=== PATIENT | female | born 1970 | race Caucasian/White ===

== ENCOUNTER 2018-10-16 09:28 | Day surgery (SDC) | payer OTHER, SELFPAY ==
[2018-10-09 08:18] VITALS: BMI 41.3
[2018-10-16] VITALS (15 sets, daily range): BP systolic 133–174; BP diastolic 56–90; PULSE 77–116; RESP 15–98; TEMP 36.2–37.3; O2SAT 94–98; BMI 41.3
--- NOTE | 2018-10-16 | PATH_ITS ---
[facility] Accession Number: [id number] . 01 Material submitted: . uterus - UTERUS, BILATERAL FALLOPIAN TUBES AND OVARIES . 02 Diagnosis: Uterus Without Cervix With Bilateral Fallopian Tubes and Ovaries: Small leiomyoma, myometrium. Atrophic endometrium. Ovaries and fallopian tubes unremarkable. [facility]/10/18/2018 . 02 Electronically signed: . Bakari Flores MD, Pathologist NPI- [id number] . 01 Gross description: . Received in formalin, labeled uterus, bilateral fallopian tubes, ovaries, is an upper uterine body (32 grams, 3.5 cm AP, 4.0 cm SI, 4.3 cm ML) and two detached ovaries (ovary #1-3.0 x 1.5 x 0.9 cm; ovary #2-3.2 x 1.3 x 0.9 cm) with attached fimbriated fallopian tubes (tube #1: length-4.5 cm, diameter-0.3 cm; tube #2: length-5.2 cm, diameter-0.2 cm). The cervix is absent. The specimen cannot be oriented as to anterior and posterior. The endometrial cavity is opened, torn and distorted. The endometrium and myometrium cannot be grossly measured. The parenchyma is gupta-white and unremarkable. The serosa is gupta smooth and shiny. The ovaries have pale yellow smooth shiny flat serosa and gupta-white solid firm parenchyma with corpus albicans identified. The fallopian tubes have gupta smooth shiny serosa and gupta unremarkable lumens. Section code: (A1-A4) uterine parenchyma; (A5) ovary #1, senior account representative serial sections; (A6) ovary #2, senior account representative serial sections; (A7) fallopian tube #1, senior account representative serial sections; (A8) fimbria #1, bivalved, entirely submitted; (A9) fallopian tube #2, senior account representative serial sections; (A10) fimbria #2, bivalved, entirely submitted. ([id number]) /MRV . 02 Pathologist provided ICD-10: D25.9 . 02 CPT . [id number] [facility]formed at: [facility] [address] [id number] MD Masood Watson MD Phone: [phone] Performed at: 02 [address] [id number] [place], [place] [id number] MD Nereyda He MD Phone: [phone]
[2018-10-16] MEDS: LACTATED RINGERS 1,000 ML 42 ML IV ×2 (10:15→13:10)
[2018-10-16] MEDS: SCOPOLAMINE 1 PATCH TOP (10:20)
[2018-10-16] MEDS: APREPITANT 40 MG CAPSULE PO (10:20)
--- NOTE | 2018-10-16 10:29 | PM.PREOP ---
Pre-operative Note Interval Note History & Physical reviewed/Exam performed by Physician: Yes Changes to H&P: No H&P completed within 30 days and has changed as indicated here:: see out pt note 10/13/18
[2018-10-16] MEDS: CEFAZOLIN VIAL 3 GM in SODIUM CHLORIDE 0.9% 100 ML 200 ML IV (10:46)
--- NOTE | 2018-10-16 11:21 | SUR.OPER ---
Lithotomy on padded OR bed. Wellman Pad Positioner under torso. Head on pillow, arms padded and tucked at sides. Legs secured in padded yellow fins stirrups.
[2018-10-16] MEDS: BUPIVACAINE 0.5% W/ EPI (PF) VIAL 30 ML INJ (11:36)
[2018-10-16] MEDS: ROPIVACAINE 0.2% PF 2 MG/ML 10ML AMP 10 ML INJ (12:20)
[2018-10-16] MEDS: ACETAMINOPHEN IV 1,000 MG/100 ML VIAL 400 MG IV (12:44)
--- NOTE | 2018-10-16 13:26 | PM.OP.1 ---
Operative Date/Time/Diagnoses Date of procedure: 10/16/18 Time of procedure: 13:26 Pre-op diagnosis: Perineal endometriosis, pelvic pain, urinary incontinence Post-op diagnosis: same Procedure & Clinicians Procedure: Laparoscopic supracervical hysterectomy with bilateral salpingo-oophorectomies, TVT exact retropubic suburethral sling Same procedure as scheduled: Yes Indications: Patient with known peritoneal endometriosis with pelvic pain requesting hysterectomy with removal of her ovaries, urinary incontinence Surgeon: Sabine Martinez Top Distribution Executive: Yovana Garcia Click Yes if Unassisted: No Anesthesia Type: General Operative Notes Findings: Adhesions of the left tube and ovary to the descending colon. No obvious endometriosis. Normal tubes ovaries and uterus. Urinary incontinence without significant hypermobility of the the urethra or cystocele Closure Type: primary Specimen(s): other (Uterus above the level of the bladder, tubes and ovaries) Prosthetic devices, grafts, tissues, transplants, or devices: TVT exact suburethral sling Applied: catheter (Chapman) and device(s) (TVT exact retropubic suburethral sling) Estimated Blood Loss (mL): 50 Blood products transfused: none Procedure in detail: Patient is brought to the operating room where she underwent general anesthesia and placed in [facility]. She was prepped and draped in the usual sterile fashion. A check list was reviewed with the staff in the room prior to beginning of the case. Patient had pulsatile stockings in place and functional. 3 g of Ancef were in prior to beginning of the case.. A Chapman catheter was placed. A single-tooth tenaculum was placed on the anterior lip of the cervix and the cervix dilated to a #6 Hegar dilator. The uterine manipulator was placed through the cervix into the uterus with the balloon inflated with 3 mL of air. The area of the umbilical incision and the 5 mm right and left lower quadrant incisions were injected with Marcaine. An incision was made with scalpel. The varies needle was placed into the abdomen and confirmed in the appropriate place with withdrawal on a syringe and then free flow of fluid down through the needle. The abdomen was insufflated with CO2. The needle was removed and a 5 mm trocar placed without difficulty. There did not appear to be any damage is placement of the trocar. The right and left lower quadrant incisions were made with the scalpel and the trochars placed without damage to internal structures. The PK forceps were used to cauterize the infundibulopelvic ligaments. Sequential bites were taken along the mesosalpinx followed by the round ligaments on both sides. Sequential bites were taken down the broad ligaments. The uterine arteries were cauterized. An incision was made above the level bladder pushing the bladder away from the cervix. The LANCE loop was placed around the uterus and the uterus was amputated above the level of the bladder. Bleeding was controlled with the PK forceps. The PK forceps were used to cauterize in the endocervical canal. A supracervical incision was made and an 11 mm port placed. A 15 mm Endo Catch bag was placed in the abdomen. The uterus, tubes and ovaries were placed in the bag and brought up through the suprapubic port site. The Cong O was placed. The uterus was hand morselized. The abdomen was reinsufflated and adequate hemostasis was noted. The trochars were removed and the CO2 allowed escape from the abdomen. The fascia layer of the suprapubic site was repaired with 0 Polysorb suture. Skin was closed with 4-0 Monocryl suture at the suprapubic site and the other 3 sites. Next the procedure was switched to vaginal. 15 mL of half percent Marcaine with epinephrine were diluted with 70 mL of saline 10 cc was injected around the mid urethra. An incision was made over the mid urethra with a scalpel. The incision was extended laterally. A Chapman catheter was placed with a catheter guide in place. The suprapubic exit sites were marked with a marking pen. The needles attached to the sling were placed from the bottom up and left in place. The catheter was removed and 300 mL of saline were placed in the bladder and cystoscopy was performed. The 70 degree scope was used to look in the bladder. It was seen that the right needle was through the bladder. The needle was removed and replaced. A 70?? scope followed by a 0?? scope were used to look at the bladder and the urethra and the needles were not in the bladder or urethra. The graft was brought up loosely under the mid urethra. With sharp pressure against the bladder there was some leakage of urine. The plastic sheath was removed. The graft was cut under the skin of the suprapubic sites. Skin was closed with Steri-Strips. The vaginal incision was closed with 2-0 vicryl suture. Patient went to recovery room in good condition. Counts of instruments and sponges were correct. Complications: other (Right TVT needle was placed through the bladder and needed to be replaced.) Condition: stable Disposition: observation Plan for aftercare: Patient will be observed overnight. She will need to wear a Chapman catheter for 1 week to allow the needle puncture to the bladder to heal.
--- NOTE | 2018-10-16 14:30 | PC.NURSE ---
Pt to room 1415, alert, oriented, rates pain to abdomen 4/10 states I feel like I got punched. Offered IV toradol, patient declined at this time. Denies nausea. Lap sites to abdomen intact, clark pad with no drainage at this time. Patient oriented to room and call light.
[2018-10-16] MEDS: LACTATED RINGERS 1,000 ML 100 ML IV (14:38)
[2018-10-16] MEDS: KETOROLAC 30 MG/ML VIAL IV (15:10)
[2018-10-16] MEDS: OXYCODONE IR 5 MG TABLET 10 MG PO ×2 (15:45→19:40)
[2018-10-16] MEDS: DULOXETINE 30 MG CAPSULE 60 MG PO (21:01)
[2018-10-17] MEDS: OXYCODONE IR 5 MG TABLET 10 MG PO ×3 (00:03→12:33)
--- NOTE | 2018-10-17 00:18 | PC.NURSE ---
Addendum entered by Makenna Dent R.N. 10/17/18 06:17: States the Toradol took off the edge and severity is now 5/10. Peripad changed with minimal red/brown drainage noted. Addendum entered by Makenna Dent R.N. 10/17/18 05:20: States pain is still 7/10 and now feels burning sensation across abdomen. No redness or increased drainage noted. Has started passing flatus. Provided ice pack and medicated with Toradol. Addendum entered by Makenna Dent R.N. 10/17/18 04:00: Patient awakened as per her request to receive pain meds when available in order to maintain pain control. States abdominal pain is 7/10 still but has been able to sleep. Medicated with Oxycodone. Original Note: Patient is alert and oriented. Breath sounds CTA with RA sat of 97%; on continuous oximetry. HRR. Denies nausea. BT present but denies flatus although is belching. Lap dressings to abdomen/umbilicus are CDI. Lap dressings bilateral suprapubic area intact with left dressing saturated with sanguinous drainage; no leakage. Spots of dark red/brown blood on clark pad. Is able to turn but reluctant to do so. Discussed importance of moving to prevent post op complications. Non pitting bilateral ankle edema. Indwelling flores catheter patent; urine clear yellow. Wearing bilateral SCD's. Fall risk score is moderate; patient reports weak/shaky when gotten up on previous shift. Verbalizes understanding not to get out of bed without assistance. Using home CPAP for sleep. Complains of dull pain in upper lap incisions and sharp pain in suprapubic incision with 7/10 severity; medicated with Oxycodone.
[2018-10-17 04:00] VITALS: BP 145/71; PULSE 88; RESP 20; TEMP 37.1; O2SAT 97
[2018-10-17] MEDS: KETOROLAC 30 MG/ML VIAL IV (04:59)
[2018-10-17] MEDS: SODIUM CHLORIDE 0.9% FLUSH 10 ML IV ×2 (05:00→08:51)
[2018-10-17 07:10] LABS: Add Manual Diff / Slide Review NO; Basophils Absolute Auto 0 /uL (0-100); Basophils Percent Auto 0.3 % (0-2); Eosinophils Absolute Auto 0 /uL (0-450); Hematocrit 37.8 % (36-46); Hemoglobin 12.7 g/dL (12.0-16.0); Lymphocytes Absolute Auto 1300 /uL (1100-4500); Lymphocytes Percent Auto 9.3 % (25-40); Mean Corpuscular HGB Conc 33.6 % (30-36); Mean Corpuscular Hemoglobin 29.2 PG (26-34); Monocytes Absolute Auto 900 /uL (0-900); Monocytes Percent Auto 6.6 % (3-14); Neutrophils Absolute Auto 12000 /uL (1500-7000); Neutrophils Percent Auto 83.8 % (50-75); Platelet Count 295 X10^3/uL (150-400); Red Blood Cell Count 4.34 X10^6/uL (4.0-5.2); Red Cell Distribution Width 13.5 % (11.6-14.8); White Blood Cell Count 14.3 X10^3/uL (4.5-11.0)
[2018-10-17 08:01] VITALS: BP 119/53; PULSE 74; RESP 16; TEMP 36.9; O2SAT 98
--- NOTE | 2018-10-17 08:46 | PM.DS.1 ---
History of Present Illness Date Patient Seen: 10/17/18 Time Patient Seen: 08:46 Chief complaint: *OPB* [id number] Narrative: Patient is postoperative day 1 Laparoscopic supracervical hysterectomy, bilateral salpingo-oophorectomy, TVT suburethral sling. Patient is having some difficulty with pain so has not been ambulatory yet. She is denying problems with nausea. Discharge Providers Discharge Date: 10/17/18 Primary care physician: Bipin Hi MD Consults: 10/16/18 10:15 Consult to Respiratory Therapy Evaluate & Treat Comment: Physician Instructions: Evaluate and treat 10/16/18 13:29 Consult to Respiratory Therapy Evaluate & Treat Comment: Physician Instructions: Evaluate and treat Discharge provider: Sabine Martinez MD Summary Discharge Diagnosis: Perineal endometriosis and urinary incontinence Hospital Course: Patient underwent a laparoscopic supracervical hysterectomy with bilateral salpingo oophorectomy with TVT retropubic mid suburethral sling. One of the introducer needles went through the bladder and was replaced so she will need to have a Chapman for 1 week while this heals. Patient is having some difficulty with pain control initially but her vital signs are stable and she is afebrile. She will be discharged home to be followed up and have her Chapman catheter removed on 10/25/2018. She will be started on estradiol patch for hormone replacement. Status at Discharge Cognitive/behavioral status at discharge: oriented Functional status at discharge: independent ambulation Overall status at discharge: patient is progressing back to baseline Time Spent with Patient Less than 30 minutes Exam Vital Signs (past 8 hours): - 10/17/18 04:00 10/17/18 08:01 Temperature 98.7 F 98.4 F Pulse Rate 88 74 Respiratory Rate 20 16 Blood Pressure 145/71 H 119/53 L Pulse Oximetry 97 98 Oxygen Delivery Method Room Air Oxygen Flow Rate 0 Narrative Exam Narrative: Patient's abdomen is soft with appropriate tenderness. Her dressings are dry. She has minimal vaginal bleeding. Clear urine. Extremities without edema and nontender. Objective Labs Result Diagrams: 10/17/18 06:55 Labs: Laboratory Results - last 24 hr 10/17/18 06:55 WBC 14.3 H RBC 4.34 Hgb 12.7 Hct 37.8 MCV 87.0 MCH 29.2 MCHC 33.6 RDW 13.5 Plt Count 295 Neut % (Auto) 83.8 H Lymph % (Auto) 9.3 L [place] % (Auto) 6.6 Eos % (Auto) 0.0 L Baso % (Auto) 0.3 Neut # (Auto) 72545 H Lymph # (Auto) 1300 [place] # (Auto) 900 Eos # (Auto) 0 Baso # (Auto) 0 Discharge Plan Discharge Plan Patient Disposition: Home Discharge Med Rec/Prescriptions Prescriptions: New nitrofurantoin monohyd/m-cryst 100 mg capsule 100 mg PO BID Qty: 14 RF: 0 Continued ibuprofen 200 MG tablet 200 mg PO PRN Qty: 0 RF: 0 lisinopril 10 MG tablet 5 mg PO QDAY Qty: 0 RF: 0 duloxetine [Cymbalta] 60 mg capsule,delayed release(DR/EC) 60 mg PO DAILY RF: 0 ondansetron 4 mg tablet,disintegrating 4 mg PO Q6H PRN (Reason: nausea and vomiting) Qty: 15 RF: 1 oxycodone 5 mg tablet 10 mg PO Q4-6H PRN (Reason: pain) Qty: 30 RF: 0 Discontinued [ CONTROL PILLS ] Qty: 0 RF: 0 Follow up/Referrals: Sabine Martinez MD [Physician] - 10/25/18 (Follow up appointment as previously scheduled) Bipin Hi MD [Primary Care Provider] - Discharge Orders: Discharge (Order); Ordered 10/17/18 Ordered By: Sabine Martinez Provider Discharge Instructions Diet: Regular Activity: Do not lift over [address] anything in vagina for 6 weeks Catheter: 2-way Chapman Catheter comment: Leg bag Skin/Wound/Dressing Care Report to your healthcare provider any signs of infection, such as:: chills, fever, increased pain and unusual redness Dressing: May remove Band-Aids later today, leave Steri-Strips in place can get wet just pat dry Visit Report/Discharge Packet Instructions: Urinary Incontinence Surgery -- Sling Procedures, DI for Hysterectomy, How to Care for Your Chapman Catheter -- Female, DI for Postoperative Pain Discharge Data Primary Care Provider: Bipin Hi Attending Provider: Sabine Martinez Discharges patient from system. Discharge Date/Time: 10/17/18 15:45 Quality VTE Deep Vein Thrombosis/Pulmonary Embolism Present on Admission: No
[2018-10-17] MEDS: LISINOPRIL 10 MG TABLET 5 MG PO (08:48)
--- NOTE | 2018-10-17 08:51 | P.DS_ITS ---
History of Present Illness Date Patient Seen: 10/17/18 Time Patient Seen: 08:46 Chief complaint: *OPB* [id number] Narrative: Patient is postoperative day 1 Laparoscopic supracervical hystere ctomy, bilateral salpingo-oophorectomy, TVT suburethral sling. Patient is having some difficulty with pain so has not been ambulatory yet. She is denying problems with nausea. Discharge Providers Discharge Date: 10/17/18 Primary care physician: Bipin Hi MD Consults: 10/16/18 10:15 Consult to Respiratory Therapy Evaluate & Treat Comment: Physician Instructions: Evaluate and treat 10/16/18 13:29 Consult to Respiratory Therapy Evaluate & Treat Comment: Physician Instructions: Evaluate and treat Discharge provider: Sabine Martinez MD Summary Discharge Diagnosis: Perineal endometriosis and urinary incontinence Hospital Course: Patient underwent a laparoscopic supracervical hysterectomy with bilateral salpingo oophorectomy with TVT retropubic mid suburethral sling. One of the introducer needles went through the bladder and was replaced so she will need to have a Chapman for 1 week while this heals. Patient is having some difficulty with pain control initially but her vital signs are stable and she is afebrile. She will be discharged home to be followed up and have her Chapman catheter removed on 10/25/2018. She will be started on estradiol patch for hormone replacement. Status at Discharge Cognitive/behavioral status at discharge: oriented Functional status at discharge: independent ambulation Overall status at discharge: patient is progressing back to baseline Time Spent with Patient Less than 30 minutes Exam Vital Signs (past 8 hours): - 10/17/18 04:00 10/17/18 08:01 Temperature 98.7 F 98.4 F Pulse Rate 88 74 Respiratory Rate 20 16 Blood Pressure 145/71 H 119/53 L Pulse Oximetry 97 98 Oxygen Delivery Method Room Air Oxygen Flow Rate 0 Narrative Exam Narrative: Patient's abdomen is soft with appropriate tenderness. Her dressings are dry. She has minimal vaginal bleeding. Clear urine. Extremities without edema and nontender. Objective Labs Result Diagrams: 10/17/18 06:55 Labs: Laboratory Results - last 24 hr 10/17/18 06:55 WBC 14.3 H RBC 4.34 Hgb 12.7 Hct 37.8 MCV 87.0 MCH 29.2 MCHC 33.6 RDW 13.5 Plt Count 295 Neut % (Auto) 83.8 H Lymph % (Auto) 9.3 L [place] % (Auto) 6.6 Eos % (Auto) 0.0 L Baso % (Auto) 0.3 Neut # (Auto) 17516 H Lymph # (Auto) 1300 [place] # (Auto) 900 Eos # (Auto) 0 Baso # (Auto) 0 Discharge Plan Discharge Plan Patient Disposition: Home Discharge Med Rec/Prescriptions Prescriptions: New nitrofurantoin monohyd/m-cryst 100 mg capsule 100 mg PO BID Qty: 14 RF: 0 Continued ibuprofen 200 MG tablet 200 mg PO PRN Qty: 0 RF: 0 lisinopril 10 MG tablet 5 mg PO QDAY Qty: 0 RF: 0 duloxetine [Cymbalta] 60 mg capsule,delayed release(DR/EC) 60 mg PO DAILY RF: 0 ondansetron 4 mg tablet,disintegrating 4 mg PO Q6H PRN (Reason: nausea and vomiting) Qty: 15 RF: 1 oxycodone 5 mg tablet 10 mg PO Q4-6H PRN (Reason: pain) Qty: 30 RF: 0 Discontinued [ CONTROL PILLS ] Qty: 0 RF: 0 Follow up/Referrals: Sabine Martinez MD [Physician] - 10/25/18 (Follow up appointment as previously scheduled) Bipin Hi MD [Primary Care Provider] - Discharge Orders: Discharge (Order); Ordered 10/17/18 Ordered By: Sabine Martinez Provider Discharge Instructions Diet: Regular Activity: Do not lift over [address] anything in vagina for 6 weeks Catheter: 2-way Chapman Catheter comment: Leg bag Skin/Wound/Dressing Care Report to your healthcare provider any signs of infection, such as:: chills, f ever, increased pain and unusual redness Dressing: May remove Band-Aids later today, leave Steri-Strips in place can get wet just pat dry Visit Report/Discharge Packet Instructions: Urinary Incontinence Surgery -- Sling Procedures, DI for Hyste rectomy, How to Care for Your Chapman Catheter -- Female, DI for Postoperative Pain Discharge Data Primary Care Provider: Bipin Hi Attending Provider: Sabine Martinez Discharges patient from system. Discharge Date/Time: 10/17/18 15:45 Quality VTE Deep Vein Thrombosis/Pulmonary Embolism Present on Admission: No
[2018-10-17] MEDS: ESTRADIOL 0.1 MG TOP (09:48)
[2018-10-17 10:06] VITALS: O2SAT 98
--- NOTE | 2018-10-17 10:10 | PC.NURSE ---
Addendum entered by Skyla Ray R.N. 10/17/18 15:43: Urinary catheter overnight bag and leg bag teaching done with pt's and pt's sister Shankar. Shankar able to verbally discuss steps to change control coordinator bags. No further voiced concerns. Pt left unit at 1345 via wheelchair with her family and all belongings. Addendum entered by Skyla Ray R.N. 10/17/18 13:36: Discharge packet reviewed with pt. Pt already has her follow up appt with Dr. Martinez for next Wednesday 10/25. States has all belongings. No voiced concerns regarding discharge paperwork. Waiting for family to arrive for discharge home. PIV removed from right hand. Original Note: Day Shift- Pt c/o more lower abd pain compared to mid abd. PRN Oxycodone given. Abd lap sites X6 covered with CDI bandaids. Chapman insitu draining QS clear yellow urine. Pt to go home with leg bag teaching. pt already has prescription for prn Oxycodone and Zofran at home. Antibiotics sent electronically to [facility] by Dr. Martinez per pt request. Leg bag teaching done at 1000 with pt. Explained switching from overnight bag to leg bag and proper technique keeping tip of tubing clean and wiping with alcohol swab creating friction for cleaning prior to inserting into catheter tubing. Keeping bag below bladder and avoiding kinks. Cleaning clark-catheter insertion site 2 times per day wiping away from the body. Discharge paperwork on urinary catheter care given at this time for pt to pre-read prior to discharge. Pt would like another demo done when family arrives. Plan for discharge around [id number].
[2018-10-17 12:00] VITALS: BP 149/76; PULSE 78; RESP 17; TEMP 36.6; O2SAT 99
--- NOTE | 2018-10-17 15:11 | CM.DANOTE ---
Addendum entered by Steff Enamorado LPN 10/17/18 15:25: Went to check in now on pt. She is getting dressed for home. OMA Crum has taught pt's sister the flores catheter care and she is leaving momentarily for home. Original Note: Discharge Planning/Care Management DCP: assessment: case received and discussed in Team Rounds. Pt is a 48 year old female who admitted yesterday for a planned gynecological procedure under care of DR. Lien Martinez. Admission status: SDC/confirmed by UR OMA Correia. A DC summary is now noted and with the information re needle to bladder and need for flores catheter for a short time at home. RN has provided flores catheter teaching to pt and family will be also taught when they arrive to pick pt up. She will follow up with Dr. Martinez in clinic on 10/25 and flores will be kept in until then. CM Discharge Assessment Start: 10/17/18 15:09 Freq: Status: Active Protocol: Document 10/17/18 15:10 ITV (Rec: 10/17/18 15:11 ITV [id number]) Discharge Planning Assessment Advance Directives? No History Provided By Patient Medical Record Prior Living Arrangements House Household Members spouse Is patient alert and oriented? 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
== END 2018-10-17 15:45 | disposition home or self-care (01) ==
LOC: OR 09:30 → AC 09:33
PROVIDERS: Family Provider Family Medicine; PCP Family Medicine; Visit Provider Specialist
PROC: 0UT94ZL Resection of Uterus, Supracervical, Percutaneous Endoscopic Approach (ICD-10-PCS; CPT 57288; principal; 2018-10-16 10:45)
PROC: 0TSD0ZZ Reposition Urethra, Open Approach (ICD-10-PCS; CPT 57288; 2018-10-16 10:45)
DX: D25.9 Leiomyoma of uterus, unspecified (principal); N80.3 Endometriosis of pelvic peritoneum; N39.3 Stress incontinence (female) (male); N73.6 Female pelvic peritoneal adhesions (postinfective); R10.2 Pelvic and perineal pain; G47.33 Obstructive sleep apnea (adult) (pediatric); K21.9 Gastro-esophageal reflux disease without esophagitis; I10 Essential (primary) hypertension; E66.9 Obesity, unspecified; Z68.41 Body mass index [BMI] 40.0-44.9, adult
CPT/HCPCS: 57288; 58542; 85025; 94762; C1771; J0131; J0330; J0690; J1100; J1170; J1885; J2250; J2405; J2704; J2795; J3010; J8501

== ENCOUNTER → 2018-10-23 13:24 | Outpatient (CLI) | payer OTHER, SELFPAY ==
[2018-10-16 14:09] VITALS: BMI 41.3
[2018-10-23 13:49] LABS: Appearance Urine UA SL CLOUDY; Bilirubin Urine UA NEGATIVE (NEGATIVE); Color Urine UA YELLOW; Glucose Urine UA NEGATIVE (Negative); Ketones Urine UA TRACE (NEGATIVE); Leukocyte Esterase Urine UA NEGATIVE (NEGATIVE); Nitrite Urine UA NEGATIVE (Negative); Occult Blood Urine UA 3+ (Negative); Protein Urine UA NEGATIVE (Negative); Urobilinogen Urine UA 0.2 E.U./dL (0.2)
[2018-10-23 14:02] LABS: Bacteria Urine Few (2-10); RBC Urine >100/HPF (0-5/HPF); Squamous Epithelial Cell Urine 0-1 /HPF (0-5/HPF); WBC Urine 1-5/HPF (0-5/HPF)
[2018-10-23 14:17] LABS: Add Manual Diff / Slide Review NO; Basophils Absolute Auto 0 /uL (0-100); Basophils Percent Auto 0.3 % (0-2); Eosinophils Absolute Auto 300 /uL (0-450); Eosinophils Percent Auto 2.9 % (2-4); Hematocrit 40.1 % (36-46); Hemoglobin 13.4 g/dL (12.0-16.0); Lymphocytes Absolute Auto 2800 /uL (1100-4500); Lymphocytes Percent Auto 25.6 % (25-40); Mean Corpuscular HGB Conc 33.4 % (30-36); Mean Corpuscular Hemoglobin 29.4 PG (26-34); Mean Corpuscular Volume 88.1 fL (80-100); Monocytes Absolute Auto 800 /uL (0-900); Monocytes Percent Auto 7.2 % (3-14); Neutrophils Absolute Auto 6900 /uL (1500-7000); Platelet Count 296 X10^3/uL (150-400); Red Blood Cell Count 4.55 X10^6/uL (4.0-5.2); Red Cell Distribution Width 13.4 % (11.6-14.8); White Blood Cell Count 10.8 X10^3/uL (4.5-11.0)
[2018-10-23 18:20] LABS: Bilirubin Urine UA NEGATIVE (NEGATIVE); Color Urine UA YELLOW; Glucose Urine UA NEGATIVE (Negative); Ketones Urine UA NEGATIVE (NEGATIVE); Leukocyte Esterase Urine UA TRACE (NEGATIVE); Nitrite Urine UA NEGATIVE (Negative); Occult Blood Urine UA 3+ (Negative); Protein Urine UA TRACE (Negative); Specific Gravity Urine UA <=1.005 (1.000-1.035); Urobilinogen Urine UA 0.2 E.U./dL (0.2)
[2018-10-23 18:35] LABS: Amorphous Sediment Urine 1+; Appearance Urine UA Slightly Cloudy; Bacteria Urine Occasional (0-1); Culture Indicated Urine Specimen Cultured; RBC Urine 30-100/HPF (0-5/HPF); Squamous Epithelial Cell Urine 0-1 /HPF (0-5/HPF); WBC Urine 5-10/HPF (0-5/HPF)
== END ==
PROVIDERS: PCP Family Medicine; Visit Provider Obstetrics & Gynecology
DX: N39.0 Urinary tract infection, site not specified (principal); N99.89 Other postprocedural complications and disorders of genitourinary system; Z96.0 Presence of urogenital implants
CPT/HCPCS: 81001; 85025; 87086

== ENCOUNTER → 2018-10-27 15:10 | Outpatient (CLI) | payer OTHER, SELFPAY ==
[2018-10-16 14:09] VITALS: BMI 41.3
--- NOTE | 2018-10-27 15:12 | DI.US.S_ITS ---
PROCEDURE: US RENAL COMPLETE INDICATIONS: R/O R kidney stone/blockage TECHNIQUE: Real-time scanning was performed of the kidneys and bladder, with image documentation. COMPARISON: None. FINDINGS: Kidneys: Kidneys are normal in size. Right kidney measures 13.0 cm long; left kidney measures 13.2 cm long. Right renal cortical thickness is 1.4 cm; left renal cortical thickness is 1.6 cm. Renal cortical echotexture is normal. No hydronephrosis. There are bilateral 5 mm nonobstructing calculi. Bladder: Pre-void bladder volume is 76 mL. Post-void residual is 13 mL. Pre-void images demonstrate no intraluminal masses or stones. On pre-void images, bilateral ureteral jets are noted with color Doppler interrogation. (Of note, ureteral jets may not be detectable in up to 25% of cases due to insufficient differences in specific gravity between ureteral and bladder urine). Miscellaneous: No free pelvic fluid. IMPRESSION: 1. No hydronephrosis. 2. Nonobstructing bilateral nephrolithiasis. 3. Normal bilateral ureteral jets. Trace post void residual. Dictated by: Lilian Ornelas M.D. on 10/27/2018 at 16:35 Approved by: Lilian Ornelas M.D. on 10/27/2018 at 16:37
== END ==
PROVIDERS: PCP Family Medicine; Visit Provider Specialist
DX: R10.9 Unspecified abdominal pain (principal); N20.0 Calculus of kidney; Z87.442 Personal history of urinary calculi
CPT/HCPCS: 76770

== ENCOUNTER → 2020-01-29 08:49 | Outpatient (CLI) | payer OTHER, SELFPAY ==
[2018-10-16 14:09] VITALS: BMI 41.3
--- NOTE | 2020-01-29 | DI.MRI.S_ITS ---
PROCEDURE: MR CERVICAL SPINE WO CON INDICATIONS: RADICULOPATHY, CERVICAL REGION TECHNIQUE: Noncontrast sagittal T1 spin echo and T2 fast spin echo, sagittal STIR, foraminal oblique sagittal T2 fast spin echo, and axial gradient echo or T2 fast spin echo through the cervical spine. COMPARISON: None. FINDINGS: Image quality: Excellent. Alignment and Curvature: Normal configuration of the craniocervical junction. Straightening of the usual cervical lordosis. No listhesis. Vertebral body heights maintained. Bone Marrow: No suspicious focal marrow signal abnormality or bone marrow edema. Spinal Cord: Cervical cord is normal in morphology and signal intensity. No syrinx. No inferior cerebellar tonsillar ectopia. Regional Soft Tissues: Prevertebral and paraspinous soft tissues are within normal limits. C2-C3: No spinal canal or neural foraminal stenosis. C3-C4: Posterior disc-osteophyte complex flattens the ventral cord slightly. Facet and uncovertebral hypertrophy contribute to moderate left and mild right neural foraminal stenosis. C4-C5: Posterior disc-osteophyte complex flattens the ventral cord. Facet and uncovertebral hypertrophy contribute to moderate left and mild right neural foraminal stenosis. C5-C6: Posterior disc-osteophyte complex flattens the ventral thecal sac. No mass effect upon the cord. Facet and uncovertebral hypertrophy contribute to mild bilateral neural foraminal stenosis. C6-C7: Posterior disc-osteophyte complex flattens the ventral cord slightly. Facet and uncovertebral hypertrophy contribute to mild bilateral neural foraminal stenosis. C7-T1: No spinal canal or neural foraminal stenosis. IMPRESSION: Multilevel multifactorial degenerative changes, worst at C3-C4. Dictated by: Alexandro Lam M.D. on 01/29/2020 at 10:12 Approved by: Alexandro Lam M.D. on 01/29/2020 at 10:15
== END ==
PROVIDERS: PCP Physician Assistant Medical; Referring Provider Physical Medicine & Rehabilitation; Visit Provider Physical Medicine & Rehabilitation
DX: M47.22 Other spondylosis with radiculopathy, cervical region (principal)
CPT/HCPCS: 72141

== ENCOUNTER → 2020-05-17 08:29 | Outpatient (CLI) | payer OTHER, SELFPAY ==
[2018-10-16 14:09] VITALS: BMI 41.3
--- NOTE | 2020-05-17 | DI.MRI.S_ITS ---
PROCEDURE: MR THORACIC SPINE WO CON INDICATIONS: Dorsalgia, unspecified TECHNIQUE: Noncontrast sagittal T1 spine echo and T2 fast spin echo, sagittal STIR, axial T1 and T2 fast spin echo through the thoracic spine. COMPARISON: None. FINDINGS: Image quality: Excellent. Alignment and Curvature: There is normal bony alignment. Bone Marrow: Marrow is of normal overall signal. No acute vertebral body compression fractures. Spinal Cord: Visualized spinal cord is normal in size and signal. Paraspinous Soft Tissues: No paravertebral masses. Miscellaneous: T3-T4: Right foraminal disc bulge results in moderate right foraminal narrowing and flattening deformity on the exiting right T3 nerve root. T4-T5: Right foraminal disc bulge results in moderate right foraminal narrowing and flattening deformity on the right T4 nerve root. T6-T7: Shallow posterior disc extrusion, eccentric to the left, extending superior to the disc behind the T6 vertebral body, indenting on the left ventral aspect of the cord without canal stenosis. T7-T8: Large focal right paracentral disc protrusion indenting on the right ventral cord and impinging on the ventral horn of the right T7 nerve root in the right lateral recess. On all other axial scanned levels, the central canal and foramina appear widely patent . IMPRESSION: 1. At T3-T4, a right foraminal disc bulge results in moderate right foraminal narrowing 2. At T4-T5, right foraminal disc bulge results in moderate right foraminal narrowing. 3. At T6-T7, is a shallow posterior disc extrusion, eccentric to the left, extending superior to the disc behind T6, which indents on the left ventral aspect of the cord without canal stenosis. 4. At T7-T8, a large focal right paracentral disc protrusion indents on the right ventral cord and impinges on the ventral horn of the right T7 nerve root in the right lateral recess. Dictated by: Manjinder Rodriguez M.D. on 05/19/2020 at 8:12 Approved by: Manjinder Rodriguez M.D. on 05/19/2020 at 8:20
== END ==
PROVIDERS: PCP Physician Assistant Medical; Referring Provider Physical Medicine & Rehabilitation; Visit Provider Physical Medicine & Rehabilitation
DX: M54.9 Dorsalgia, unspecified (principal); M51.24 Other intervertebral disc displacement, thoracic region; M48.04 Spinal stenosis, thoracic region
CPT/HCPCS: 72146

== ENCOUNTER → 2020-07-17 14:00 | Outpatient (CLI) | payer OTHER, SELFPAY ==
[2018-10-16 14:09] VITALS: BMI 41.3
--- NOTE | 2020-07-17 | DI.US.S_ITS ---
LIMITED ULTRASOUND OF RIGHT BREAST: 07/17/2020 CLINICAL: Patient returns today to evaluate a focal asymmetry in the right breast. Comparison is made to exams dated: 07/17/2020 mammogram - [facility], 07/07/2018 mammogram, 07/01/2020 mammogram, and 06/04/2015 mammogram - [facility]. Color flow and real-time ultrasound of the right breast 12-2 o'clock region were performed. Aguilar scale images of the real-time examination were reviewed. There is a 0.4 cm x 0.3 cm x 0.3 cm oval cyst in the right breast at 12 o'clock middle depth 3 cm from the nipple. This oval cyst displays internal echoes. Color flow imaging demonstrates that there is no vascularity present. There also is a 0.6 cm x 0.4 cm x 0.3 cm oval cyst in the right breast at 2 o'clock middle depth 4 cm from the nipple. This oval cyst displays internal echoes. Color flow imaging demonstrates that there is no vascularity present. This likely correlates with mammography findings. IMPRESSION: PROBABLY BENIGN The 0.4 cm cyst in the right breast at 12 o'clock middle depth is consistent with a complicated cyst and is probably benign. The 0.6 cm cyst in the right breast at 2 o'clock middle depth is consistent with a complicated cyst and is probably benign. A follow-up mammogram and an ultrasound in 6 months is recommended to demonstrate stability. Exam findings were conveyed to the patient. This exam was interpreted at Station ID: [id number]. Electronically Signed By: Guerrero Arreola M.D. slc/:07/17/2020 15:47:33 copy to: Lilian Flannery letter sent: Followup Recommended Ultrasound BI-RADS: 3 Probably benign
--- NOTE | 2020-07-17 | DI.MG.S_ITS ---
UNILATERAL RIGHT DIGITAL DIAGNOSTIC MAMMOGRAM 3D/2D WITH ADDITIONAL VIEWS: 07/17/2020 CLINICAL: Additional evaluation requested from prior study. Comparison is made to exams dated: 07/01/2020 mammogram, 07/07/2018 mammogram, and 06/04/2015 mammogram - [facility]. There are scattered fibroglandular elements in right breast. There is a 0.6 cm oval low density asymmetry in the right breast at 1 o'clock middle depth. No other significant masses or calcifications are seen in the breast. IMPRESSION: INCOMPLETE: NEEDS ADDITIONAL IMAGING EVALUATION The 0.6 cm oval low density asymmetry in the right breast resembles a cyst and is indeterminate. A targeted ultrasound is recommended and will immediately follow. This exam was interpreted at Station ID: [id number]. NOTE: For mammograms, a report in lay terms will be sent to the patient. Approximately 15% of breast malignancies will not be visualized mammographically. In the management of a palpable breast mass, a negative mammogram must not discourage biopsy of a clinically suspicious lesion. Electronically Signed By: Guerrero Arreola M.D. slc/:07/17/2020 15:43:32 copy to: Lilian Flannery ACR BI-RADS Category 0: Incomplete [id number]
== END ==
PROVIDERS: PCP Physician Assistant Medical; Referring Provider Surgery; Visit Provider Physician Assistant Medical
DX: R92.8 Other abnormal and inconclusive findings on diagnostic imaging of breast (principal); N60.01 Solitary cyst of right breast
CPT/HCPCS: 76642; 77065; G0279

== ENCOUNTER 2020-08-12 05:16 | Emergency (ER) | payer OTHER, SELFPAY ==
[2018-10-16 14:09] VITALS: BMI 41.3
[2020-08-12] VITALS (17 sets, daily range): BP systolic 130–172; BP diastolic 64–81; PULSE 94–135; RESP 18–20; TEMP 37.2; O2SAT 93–100; BMI 44.2
--- NOTE | 2020-08-12 05:44 | ED_ITS ---
HPI - General Adult General Chief complaint: Urogenital-Female Stated complaint: kidney stone back pain Time Seen by Provider: 08/12/20 05:32 Source: patient and family Mode of arrival: Ambulatory Limitations: no limitations History of Present Illness HPI narrative: Patient is a 50-year-old female. She states she has had multiple kidney stones in the past and has had to have lithotripsy in the past. She is currently under the care of a urologist. She is on Flomax 2 times a day at baseline. She states that just over 24 hours ago started having left-sided discomfort that is worsened. Is having nausea and vomiting and generally just not feeling very well. Related Data Home Medications Medication Instructions Recorded Confirmed ibuprofen 200 mg PO PRN #0 02/24/11 11/16/18 lisinopril 5 mg PO QDAY #0 02/25/11 11/16/18 duloxetine 60 mg capsule,delayed 60 mg PO DAILY 09/25/18 11/16/18 release Previous Rx's Medication Instructions Recorded ondansetron 4 mg disintegrating 4 mg PO Q6H PRN #15 tab 10/13/18 tablet estradiol 0.1 mg/24 hr semiweekly 1 patch TRANSDERMAL 2XW #8 each 02/22/19 transdermal patch Allergies Allergy/AdvReac Type Severity Reaction Status Date / Time hydrocodone [From Vicodin] AdvReac Mild Nausea/Vomi Verified 11/16/18 07:58 ting Review of Systems Constitutional Constitutional: Reports system reviewed and no additional complaints, except as documented Cardiovascular Cardiovascular: Denies chest pain Respiratory Respiratory: Reports system reviewed and no additional complaints, except as documented Gastrointestinal Gastrointestinal: Denies abdominal pain Genitourinary Genitourinary: Reports hematuria, Reports flank pain and Reports urinary urgency Genitourinary: Reports hematuria, Reports flank pain and Reports urinary urgency Musculoskeletal Musculoskeletal: Reports system reviewed and no additional complaints, except as documented Integumentary/Breasts Skin/Breast: Denies rash Neurologic Neurologic: Reports system reviewed and no additional complaints, except as documented Hematologic/Lymphatic On Anticoagulants: No Allergic/Immunologic Allergic/Immunologic: Reports system reviewed and no additional complaints, except as documented Patient History Medical History Allergies (~2006) Dyspareunia Endometriosis (~1993) GERD (gastroesophageal reflux disease) (~2003) Irritable bowel syndrome (~1994) Kidney stones (~1998) Sleep apnea (~2017) MEGHA (stress urinary incontinence, female) (~2015) Surgical History (Updated 10/25/18 @ 08:16 by Malathi Contreras) Anesthesia History of shoulder surgery History of tonsillectomy Hx laparoscopic cholecystectomy (~2017) Hx of laparoscopy S/P laparoscopic supracervical hysterectomy (~10/16/18) [place] teeth removed Family History (Updated 10/10/18 @ 21:42 by Maryellen Rodriguez) Father Cancer Diabetes mellitus Hypertension Mother Stroke Sister Cancer Grandfather Cancer Social History household members: spouse Smoking Status: Never smoker alcohol intake: never Smoking Status: Never smoker Substance Use Type: does not use Exam Initial Vital Signs Initial Vital Signs: Vital Signs Temperature 98.9 F 08/12/20 05:16 Pulse Rate 135 H 08/12/20 05:16 Respiratory Rate 20 08/12/20 05:16 Blood Pressure 172/81 H 08/12/20 05:16 Pulse Oximetry 97 08/12/20 05:16 Const General: cooperative and comfortable Limitations: mental status not altered HENMT Head: normal to inspection and normocephalic Resp Effort & Inspection: normal respiratory effort Cardio Rate: tachycardic Skin Lesions: no lesions Neuro General: patient alert and patient awake Cognition: normal cognition Speech: speech normal Extrem General: normal to inspection Psych Appearance: grossly normal and well kempt Course Orders Ordered: ED Orders 08/12/20 05:35 Basic Metabolic Panel Stat Complete Blood Count AUTO DIFF Stat Lactate (Lactic Acid) Stat Test Urine Stat Urine Culture Stat Urine Microscopic Stat 08/12/20 05:39 EKG-12 Lead Stat 08/12/20 06:04 CT kidney ureter bladder (KUB) Stat 08/12/20 06:07 Blood Culture Stat Sodium Chloride (Normal Saline 0.9%) 1,000 mls @ 500 mls/hr IV BOLUS ONE Stop: 08/12/20 07:46 Last Admin: 08/12/20 05:55 Dose: 500 mls/hr Documented by: Discontinued Medications Hydromorphone HCl (Hydromorphone 1 Mg Inj) 1 mg IV NOW ONE Stop: 08/12/20 05:45 Last Admin: 08/12/20 05:55 Dose: 1 mg Documented by: Ceftriaxone Sodium 1,000 mg/ (Sodium Chloride) 100 mls @ 200 mls/hr IV NOW ONE Stop: 08/12/20 06:05 Last Admin: 08/12/20 06:50 Dose: 200 mls/hr Documented by: Ketorolac Tromethamine (Ketorolac 30 Mg/Ml Vial) 30 mg IV NOW ONE Stop: 08/12/20 05:45 Last Admin: 08/12/20 05:55 Dose: 30 mg Documented by: Ondansetron HCl (Ondansetron 4 Mg/2 Ml Inj) 4 mg IV NOW ONE Stop: 08/12/20 05:45 Last Admin: 08/12/20 05:55 Dose: 4 mg Documented by: Vital Signs Vital signs: Vital Signs - 8 hr 08/12/20 05:16 Temperature 98.9 F Pulse Rate 135 H Respiratory Rate 20 Blood Pressure 172/81 H Pulse Oximetry 97 Medical Decision Making Lab Data Result diagrams: 08/12/20 05:35 08/12/20 05:35 Labs: Lab Results 08/12/20 08/12/20 08/12/20 Range/Units 05:35 05:35 05:35 WBC 17.9 H (4.5-11.0) X10^3/uL RBC 4.92 (4.0-5.2) X10^6/uL Hgb 14.1 (12.0-16.0) g/dL Hct 43.1 (36-46) % MCV 87.5 (80-100) fL MCH 28.6 (26-34) PG MCHC 32.6 (30-36) % RDW 15.3 H (11.6-14.8) % Plt Count 294 (150-400) X10^3/uL Neut % (Auto) 86.7 H (50-75) % Lymph % (Auto) 5.8 L (25-40) % [place] % (Auto) 6.7 (3-14) % Eos % (Auto) 0.4 L (2-4) % Baso % (Auto) 0.4 (0-2) % Neut # (Auto) 18573 H (8913-6191) /uL Lymph # (Auto) 1000 L (8233-2078) /uL [place] # (Auto) 1200 H (0-900) /uL Eos # (Auto) 100 (0-450) /uL Baso # (Auto) 100 (0-100) /uL Sodium 132 L (137-145) mmol/L Potassium 4.4 (3.4-5.1) mmol/L Chloride 99 (98-107) mmol/L Carbon Dioxide 21 L (22-32) mmol/L BUN 10 (7-17) mg/dL Creatinine 0.87 (0.52-1.04) mg/dL Estimated GFR > 60.0 (>60) mL/min BUN/Creatinine Ratio 11.5 (6-22) Glucose 203 H (70-100) mg/dL Lactate (0.7-2.1) mmol/L Calcium 9.7 (8.4-10.2) mg/dL Urine RBC 1-5/hpf D (0-5/HPF) Urine WBC 30-100/hpf H (0-5/HPF) Ur Squamous Epith Cells 1-5 /hpf (0-5/HPF) Urine Bacteria Many (>30) H (None) Urine Mucus 1+ H (Negative) Urine Yeast 0-1/hpf (None) Ur Culture Indicated? Specimen cultured Urine Test (Negative) 08/12/20 08/12/20 Range/Units 05:35 05:35 WBC (4.5-11.0) X10^3/uL RBC (4.0-5.2) X10^6/uL Hgb (12.0-16.0) g/dL Hct (36-46) % MCV (80-100) fL MCH (26-34) PG MCHC (30-36) % RDW (11.6-14.8) % Plt Count (150-400) X10^3/uL Neut % (Auto) (50-75) % Lymph % (Auto) (25-40) % [place] % (Auto) (3-14) % Eos % (Auto) (2-4) % Baso % (Auto) (0-2) % Neut # (Auto) (6882-0618) /uL Lymph # (Auto) (8088-3017) /uL [place] # (Auto) (0-900) /uL Eos # (Auto) (0-450) /uL Baso # (Auto) (0-100) /uL Sodium (137-145) mmol/L Potassium (3.4-5.1) mmol/L Chloride (98-107) mmol/L Carbon Dioxide (22-32) mmol/L BUN (7-17) mg/dL Creatinine (0.52-1.04) mg/dL Estimated GFR (>60) mL/min BUN/Creatinine Ratio (6-22) Glucose (70-100) mg/dL Lactate 2.4 H (0.7-2.1) mmol/L Calcium (8.4-10.2) mg/dL Urine RBC (0-5/HPF) Urine WBC (0-5/HPF) Ur Squamous Epith Cells (0-5/HPF) Urine Bacteria (None) Urine Mucus (Negative) Urine Yeast (None) Ur Culture Indicated? Urine Test Negative (Negative) Urine Dip Bedside Urine Glucose 1000 mg/dl Bedside Urine Bilirubin - Negative Bedside Urine Ketone + 15 Urine Specific [place] 1.020 Bedside Urine Occult Blood +++ Bedside Urine pH 5.5 Bedside Urine Protein - Negative Bedside Urine Urobilinogen - Negative Bedside Urine Nitrite + Positive Bedside Urine Leukocytes - Negative Esterase Point of care testing: Urine Dip Bedside Urine Glucose 1000 mg/dl Bedside Urine Bilirubin - Negative Bedside Urine Ketone + 15 Urine Specific [place] 1.020 Bedside Urine Occult Blood +++ Bedside Urine pH 5.5 Bedside Urine Protein - Negative Bedside Urine Urobilinogen - Negative Bedside Urine Nitrite + Positive Bedside Urine Leukocytes - Negative Esterase Imaging Data CT scan - abdomen/pelvis: Radiologist's Impression: Multiple bilateral nonobstructing renal calculi there is left perinephric stranding without hydronephrosis ECG Data Attestation: I personally reviewed and interpreted this ECG as follows: Prior ECG tracings: not available for review Interpretation: Sinus tachycardia Ventricular rate 131 Normal axis Normal QRS QTC 440 MDM Narrative Medical decision making narrative: Patient was tachycardic and tachypneic. Also has a leukocytosis. Urinalysis has nitrite positive. Blood cultures were obtained. CT scan ordered. Antibiotics administered. Care turned over to Dr. Childress to follow-up. Discharge Plan Departure Prescriptions: No Action ibuprofen 200 MG tablet 200 mg PO PRN Qty: 0 RF: 0 lisinopril 10 MG tablet 5 mg PO QDAY Qty: 0 RF: 0 estradiol 0.1 mg/24 hr patch semiweekly 1 patch transdermal 2XW Qty: 8 RF: 11 duloxetine [Cymbalta] 60 mg capsule,delayed release(DR/EC) 60 mg PO DAILY RF: 0 ondansetron 4 mg tablet,disintegrating 4 mg PO Q6H PRN (Reason: nausea and vomiting) Qty: 15 RF: 1
[2020-08-12 05:46] LABS: Add Manual Diff / Slide Review NO; Basophils Absolute Auto 100 /uL (0-100); Basophils Percent Auto 0.4 % (0-2); Eosinophils Absolute Auto 100 /uL (0-450); Eosinophils Percent Auto 0.4 % (2-4); Hematocrit 43.1 % (36-46); Hemoglobin 14.1 g/dL (12.0-16.0); Lymphocytes Absolute Auto 1000 /uL (1100-4500); Lymphocytes Percent Auto 5.8 % (25-40); Mean Corpuscular HGB Conc 32.6 % (30-36); Mean Corpuscular Hemoglobin 28.6 PG (26-34); Mean Corpuscular Volume 87.5 fL (80-100); Monocytes Absolute Auto 1200 /uL (0-900); Monocytes Percent Auto 6.7 % (3-14); Neutrophils Absolute Auto 15500 /uL (1500-7000); Neutrophils Percent Auto 86.7 % (50-75); Platelet Count 294 X10^3/uL (150-400); Red Blood Cell Count 4.92 X10^6/uL (4.0-5.2); Red Cell Distribution Width 15.3 % (11.6-14.8); White Blood Cell Count 17.9 X10^3/uL (4.5-11.0)
[2020-08-12 05:50] LABS: BUN Creatinine Ratio 11.5 (6-22); Blood Urea Nitrogen 10 mg/dL (7-17); Calcium 9.7 mg/dL (8.4-10.2); Carbon Dioxide 21 mmol/L (22-32); Chloride 99 mmol/L (98-107); Estimated Glomerular Filt Rate > 60.0 mL/min (>60); Glucose 203 mg/dL (70-100); HEMOLYSIS < 15 (0-50); Potassium 4.4 mmol/L (3.4-5.1); Sodium 132 mmol/L (137-145)
[2020-08-12 05:51] LABS: Bacteria Urine Many (>30); Mucus Urine 1+ (Negative); RBC Urine 1-5/HPF (0-5/HPF); Squamous Epithelial Cell Urine 1-5 /HPF (0-5/HPF); WBC Urine 30-100/HPF (0-5/HPF)
[2020-08-12 05:52] LABS: Culture Indicated Urine Specimen Cultured
[2020-08-12] MEDS: SODIUM CHLORIDE 0.9% 1,000 ML 500 ML IV (05:55)
[2020-08-12] MEDS: ONDANSETRON 4 MG/2 ML INJ IV ×2 (05:55→08:36)
[2020-08-12] MEDS: HYDROMORPHONE 1 MG INJ IV (05:55)
[2020-08-12] MEDS: KETOROLAC 30 MG/ML VIAL IV (05:55)
[2020-08-12 05:59] LABS: Pregnancy Test Urine Negative (Negative)
--- NOTE | 2020-08-12 06:04 | DI.CT.S_ITS ---
PROCEDURE: CT KIDNEY URETER BLADDER (KUB) INDICATIONS: left side pain, history of stones TECHNIQUE: Axial sections were acquired from the lung bases to the pubic symphysis. Coronal and sagittal reformats were performed. For radiation dose reduction, the following was used: automated exposure control, adjustment of mA and/or kV according to patient size. COMPARISON:None. FINDINGS: Image quality: Excellent. Lung bases: There is a 3 mm nodule in the left lower lobe (series 3, image 13). Heart: No significant findings. URINARY: Right Kidney: Punctate renal calculi measuring 1-3 mm. No hydronephrosis. Right Ureter: No ureteral stone or hydroureter. Left Kidney: Multiple renal calculi measuring 1-9 mm. No hydronephrosis. Left Ureter: No ureteral stone or hydroureter. Bladder: Normal wall thickness. No stones. ABDOMEN: Liver: Hepatic steatosis. Liver is enlarged measuring 22.8 cm in length. Multiple hyperdense nodules in the liver. Lesion 1: 1.5 cm; segment II; series 2, image 17. Lesion 2: 1.1 cm; segment II; series 2, image 24. Lesions 3: 0.6 cm; segment IV series 2 image 18. Lesion 4: 0.8 cm; segment ; series 2 image 25. Gallbladder: Surgically absent. Biliary ducts: Unremarkable. Pancreas: Unremarkable. Spleen: Unremarkable. Adrenal Glands: Unremarkable. Stomach and Bowel: Stomach, small bowel loops, and colon are unremarkable. Peritoneum: No abnormal intraperitoneal fluid. No free air. Ventral Wall: No hernia. Abdominal Nodes: No enlarged retroperitoneal or mesenteric lymph nodes. Vessels: Aorta and inferior vena cava are normal in size. PELVIS: Pelvic Organs: Unremarkable. Uterus is absent. Ovaries are not visualized. No pathological free-fluid in pelvis. Pelvic Nodes: Unremarkable. Miscellaneous: No inguinal hernias are seen. Bones: Unremarkable. IMPRESSION: 1. Nonobstructive renal calculi bilaterally. No ureteral stones. No hydronephrosis. 2. Mild perinephric stranding of the left kidney. The finding is nonspecific. The patient may have recently passed a stone. An inflammatory or infectious process could also cause perinephric stranding. 3. Multiple hyperdense hepatic nodules are present. The lesions are indeterminate. If clinically indicated, further evaluation with MRI may be obtained. 4. Hepatomegaly and hepatic steatosis. No significant discrepancy with the process development chemist radiology preliminary report. Dictated by: Rabia Porter M.D. on 08/12/2020 at 7:35 Approved by: Rabia Porter M.D. on 08/12/2020 at 7:49
[2020-08-12 06:10] LABS: Lactate (Lactic Acid) 2.4 mmol/L (0.7-2.1)
[2020-08-12] MEDS: cefTRIAXone 1,000 MG in SODIUM CHLORIDE 0.9% 100 ML 200 ML IV (06:50)
[2020-08-12] MEDS: HYDROMORPHONE 0.5 MG INJ IV (07:22)
[2020-08-12] MEDS: SODIUM CHLORIDE 0.9% 1,000 ML 1000 ML IV (07:22)
[2020-08-12 08:01] LABS: Reflexed Lactate in 2 Hours Y
[2020-08-12 08:23] LABS: Lactate 2HR (Lactic Acid Rflx) 1.7 mmol/L (0.7-2.1)
--- NOTE | 2020-08-12 09:50 | PC.NURSE ---
pt ambulated independently to restroom, steady gate, tolerated ambulation well.
[2020-08-12] MEDS: OXYCODONE IR 5 MG TABLET 10 MG PO (10:25)
--- NOTE | 2020-08-12 11:24 | PC.NURSE ---
Pt tolerated PO pills and crackers well
[2020-08-13 07:48] LABS: Enterococcus species Not Detected (Not Detect)
[2020-08-13 07:52] LABS: Acinetobacter baumannii Not Detected (Not Detect); Candida albicans Not Detected (Not Detect); Candida glabrata Not Detected (Not Detect); Candida krusei Not Detected (Not Detect); Candida parapsilosis Not Detected (Not Detect); Candida tropicalis Not Detected (Not Detect); E. coli Not Detected (Not Detect); Enterobacter cloacae complex Not Detected (Not Detect); Enterobacteriaceae species Not Detected (Not Detect); Haemophilus influenzae Not Detected (Not Detect); Listeria monocytogenes Not Detected (Not Detect); Methicillin-resistant gene Not Detected (Not Detect); Neisseria meningitidis Not Detected (Not Detect); Proteus species Not Detected (Not Detect); Pseudomonas aeruginosa Not Detected (Not Detect); Serratia marcescens Not Detected (Not Detect); Staphylococcus species Detected (Not Detect); Streptococcus agalactiae (Gr B Not Detected (Not Detect); Streptococcus pneumonia Not Detected (Not Detect); Streptococcus pyogenes (Gr A) Not Detected (Not Detect); Streptococcus species Not Detected (Not Detect)
== END 2020-08-12 11:24 | disposition home or self-care (01) ==
PROVIDERS: Emergency Medicine; Emergency Provider Emergency Medicine; PCP Physician Assistant Medical
DX: N12 Tubulo-interstitial nephritis, not specified as acute or chronic (principal); E87.1 Hypo-osmolality and hyponatremia; R11.2 Nausea with vomiting, unspecified; R31.9 Hematuria, unspecified; R00.0 Tachycardia, unspecified
CPT/HCPCS: 36415; 74176; 80048; 81003; 81015; 81025; 83605; 85025; 87040; 87077; 87086; 87147; 87150; 87186; 87205; 93005; 93010; 96361; 96365; 96375; 96376; 99284; J0696; J1170; J1885; J2405

== ENCOUNTER 2020-08-13 15:29 | Observation (INO) | payer OTHER, SELFPAY ==
[2018-10-16 14:09] VITALS: BMI 41.3
[2020-08-13 15:41] VITALS: BP 133/76; PULSE 122; RESP 20; TEMP 37.1; O2SAT 99; BMI 44.6
[2020-08-13 15:43] VITALS: PULSE 109; RESP 17; O2SAT 97
--- NOTE | 2020-08-13 15:43 | DI.RAD.S_ITS ---
PROCEDURE: XR CHEST 1V INDICATIONS: suspected sepsis TECHNIQUE: One view of the chest was acquired. COMPARISON: None. FINDINGS: Surgical changes and devices: None. Lungs and pleura: Lungs are clear. No pleural effusions or pneumothorax. Mediastinum: Mediastinal contours appear normal. Heart size is normal. Bones and chest wall: No suspicious bony lesions. Overlying soft tissues appear unremarkable. IMPRESSION: No acute pulmonary process. Dictated by: Jocelin Santoyo M.D. on 08/13/2020 at 15:59 Approved by: Jocelin Santoyo M.D. on 08/13/2020 at 16:00
[2020-08-13 15:57] LABS: Amorphous Sediment Urine 1+; Bacteria Urine Few (2-10); Culture Indicated Urine Specimen Cultured; RBC Urine 1-5/HPF (0-5/HPF); Squamous Epithelial Cell Urine 1-5 /HPF (0-5/HPF); WBC Urine 5-10/HPF (0-5/HPF)
[2020-08-13 16:00] VITALS: BP 156/74; PULSE 104; RESP 13; O2SAT 95
[2020-08-13 16:04] LABS: Add Manual Diff / Slide Review NO; Basophils Absolute Auto 0 /uL (0-100); Basophils Percent Auto 0.3 % (0-2); Eosinophils Absolute Auto 0 /uL (0-450); Eosinophils Percent Auto 0.3 % (2-4); Hematocrit 39.6 % (36-46); Hemoglobin 13.3 g/dL (12.0-16.0); Lymphocytes Absolute Auto 1200 /uL (1100-4500); Lymphocytes Percent Auto 7.8 % (25-40); Mean Corpuscular HGB Conc 33.6 % (30-36); Mean Corpuscular Hemoglobin 29.1 PG (26-34); Mean Corpuscular Volume 86.3 fL (80-100); Monocytes Absolute Auto 1400 /uL (0-900); Monocytes Percent Auto 8.6 % (3-14); Neutrophils Absolute Auto 13000 /uL (1500-7000); Platelet Count 236 X10^3/uL (150-400); Red Blood Cell Count 4.58 X10^6/uL (4.0-5.2); Red Cell Distribution Width 15.2 % (11.6-14.8); White Blood Cell Count 15.7 X10^3/uL (4.5-11.0)
--- NOTE | 2020-08-13 16:11 | ED.BACK ---
HPI - Back Pain/Injury General Chief Complaint: Back Pain/Injury Stated Complaint: states kidney infection is worse Time Seen by Provider: 08/13/20 15:35 Source: patient and family Mode of arrival: Ambulatory Limitations: no limitations History of Present Illness HPI Narrative: 50-year-old female with history of hypertension and kidney stones returns to the 2nd time in 2 days in the chief complaint of fever as high as 102, shaking chills, worsening left flank pain, weakness, nausea. She was here yesterday and diagnosed with pyelonephritis. She had a CT that shows no obstructive uropathy but the presence of stones. She was sent with a 2 week prescription for Cipro and returns at the request of her primary care provider because of worsening symptoms. MD Complaint: back pain Onset (ago): day(s) Duration: constant Similar Symptoms Previously: No Location: left flank Severity: moderate Quality: aching and throbbing Radiation: none Relieving factors: immobilization Exacerbating factors: movement Associated symptoms: fever, chills and dysuria Related Data Home Medications Medication Instructions Recorded Confirmed ibuprofen 200 mg PO PRN #0 02/24/11 11/16/18 lisinopril 5 mg PO QDAY #0 02/25/11 11/16/18 duloxetine 60 mg capsule,delayed 60 mg PO DAILY 09/25/18 11/16/18 release Previous Rx's Medication Instructions Recorded ondansetron 4 mg disintegrating 4 mg PO Q6H PRN #15 tab 10/13/18 tablet estradiol 0.1 mg/24 hr semiweekly 1 patch TRANSDERMAL 2XW #8 each 02/22/19 transdermal patch ciprofloxacin HCl 500 mg PO BID #28 tab 08/12/20 ondansetron 4 mg PO QID PRN #7 tab 08/12/20 oxycodone 5 mg PO Q6H PRN #10 tab 08/12/20 Allergies Allergy/AdvReac Type Severity Reaction Status Date / Time hydrocodone [From Vicodin] AdvReac Mild Nausea/Vomi Verified 11/16/18 07:58 ting Review of Systems Constitutional Constitutional: Reports body ache(s), Reports chills, Denies fatigue, Reports fever(s), Denies frequent falls, Denies lethargy and Reports weakness Eyes Eyes: Denies change in vision, Denies eye discharge, Denies irritation and Denies loss of vision ENT Ears, Nose, Mouth, and Throat: Denies change in voice, Denies dizziness, Denies neck pain, Denies sore throat and Denies throat swelling Cardiovascular Cardiovascular: Denies chest pain, Denies irregular heart rhythm, Denies lightheadedness, Denies palpitations, Denies dyspnea, Denies dyspnea on exertion and Denies orthopnea Respiratory Respiratory: Denies cough, Denies dyspnea, Denies dyspnea on exertion and Denies wheezing Gastrointestinal Gastrointestinal: Denies abdominal pain, Denies change in bowel habits, Denies diarrhea, Reports nausea and Denies vomiting Musculoskeletal Musculoskeletal: Reports back pain, Denies neck pain and Denies numbness Integumentary/Breasts Skin/Breast: Denies pruritus, Denies erythema, Denies rash and Denies wounds Neurologic Neurologic: Denies behavioral changes, Denies confusion, Denies dizziness, Denies frequent falls, Denies loss of vision, Denies numbness and Reports weakness Psychiatric Psychiatric: Denies anxiety, Denies behavioral changes, Denies confusion, Denies depression, Denies homicidal ideation and Denies suicidal ideation Endocrine Endocrine: Denies fatigue, Denies flushing and Denies palpitations Hematologic/Lymphatic Hematologic/Lymphatic: Denies easy bruising Allergic/Immunologic Allergic/Immunologic: Denies urticaria, Denies throat swelling and Denies wheezing Patient History Medical History Allergies (~2006) Dyspareunia Endometriosis (~1993) GERD (gastroesophageal reflux disease) (~2003) Irritable bowel syndrome (~1994) Kidney stones (~1998) Sleep apnea (~2017) MEGHA (stress urinary incontinence, female) (~2015) Surgical History Anesthesia History of shoulder surgery History of tonsillectomy Hx laparoscopic cholecystectomy (~2017) Hx of laparoscopy S/P laparoscopic supracervical hysterectomy (~10/16/18) [place] teeth removed Family History Father Cancer Diabetes mellitus Hypertension Mother Stroke Sister Cancer Grandfather Cancer Social History household members: spouse Smoking Status: Never smoker alcohol intake: never Smoking Status: Never smoker Substance Use Type: does not use Exam Narrative Exam Narrative: GENERAL: [50] year old patient appears stated age. Ill-appearing, obviously uncomfortable, tachycardic and sweaty. HEAD: Atraumatic. Normocephalic. EYES: Pupils equal round and reactive. Extraocular motions intact. No scleral icterus. No injection or drainage. ENT: Nose without bleeding, purulent drainage. Throat without erythema, tonsillar hypertrophy or exudate. Airway patent. NECK: Trachea midline. Non tender CARDIOVASCULAR: Tachycardic but regular rhythm without murmurs, gallops, or rubs. RESPIRATORY: Clear to auscultation. Breath sounds equal bilaterally. No wheezes, rales, or rhonchi. GASTROINTESTINAL: Abdomen soft, non-tender, nondistended. EXTREMITIES: No edema or joint tenderness. BACK: Left CVA tender NEURO: AOx3. SKIN: No rash or erythema of visible areas, diaphoresis Initial Vital Signs Initial Vital Signs: Vital Signs Temperature 98.8 F 08/13/20 15:41 Pulse Rate 122 H 08/13/20 15:41 Respiratory Rate 20 08/13/20 15:41 Blood Pressure 133/76 08/13/20 15:41 Pulse Oximetry 99 08/13/20 15:41 Course Orders Ordered: ED Orders 08/13/20 15:37 Urine Culture Stat Urine Microscopic Stat 08/13/20 15:42 COVID19 - ADMIT ([employer] swab/PCR) Stat Complete Blood Count AUTO DIFF Stat Comprehensive Metabolic Panel Stat Lactate (Lactic Acid) Stat Procalcitonin Stat Troponin & CK Cardiac Panel Stat 08/13/20 15:43 XR chest 1V Stat EKG-12 Lead Stat RT Consult Eval and Treat Now 08/13/20 16:15 Blood Culture Stat Acetaminophen (Acetaminophen 325 Mg Tablet) 650 mg PO Q6HR PRN PRN Reason: Fever/Mild Pain (1-3) Enoxaparin Sodium (Enoxaparin 40 Mg/0.4 Ml Syringe) 40 mg SUBCUT DAILY YING Sodium Chloride (Normal Saline 0.9%) 1,000 mls @ 150 mls/hr IV CONT YING Last Admin: 08/13/20 18:16 Dose: 150 mls/hr Documented by: YOBANY Levofloxacin (Levaquin) 750 mg in 150 mls @ 100 mls/hr IV Q24H [facility] Vancomycin HCl (Vancomycin) 1,250 mg in 250 mls @ 250 mls/hr IV Q8H [facility] Last Admin: 08/13/20 19:05 Dose: 250 mls/hr Documented by: TERESE Insulin Human Lispro (Insulin Lispro 100 Unit/Ml 3ml Vial) [address] [facility]; Protocol Ketorolac Tromethamine (Ketorolac 30 Mg/Ml Vial) 30 mg IV Q6HR PRN PRN Reason: Pain, Severe (7-10) Stop: 08/18/20 17:36 Last Admin: 08/13/20 19:04 Dose: 30 mg Documented by: TERESE Morphine Sulfate (Morphine 2 Mg/Ml Inj) 2 mg IV Q4HR PRN PRN Reason: Pain, Moderate (4-6) Last Admin: 08/13/20 18:09 Dose: 2 mg Documented by: YOBANY Naloxone HCl (Naloxone 0.4 Mg/Ml Vial) 0.2 mg IV Q2MIN PRN PRN Reason: Opiate Reversal Ondansetron HCl (Ondansetron 4 Mg/2 Ml Inj) 4 mg IV Q8HR PRN PRN Reason: Nausea And Vomiting Last Admin: 08/13/20 17:57 Dose: 4 mg Documented by: YOBANY Vancomycin HCl (Vancomycin Trough) 1 request [facility] [address] [facility] Stop: 08/14/20 18:31 Discontinued Medications Sodium Chloride (Normal Saline 0.9%) 1,000 mls @ 1,000 mls/hr IV BOLUS ONE Stop: 08/13/20 16:42 Last Admin: 08/13/20 16:00 Dose: Not Given Documented by: JESSICA Sodium Chloride (Normal Saline 0.9%) 1,503 mls @ 501 mls/hr 30 ml/kg infuse over 3 hr (1503 ml) IV NOW ONE Stop: 08/13/20 18:43 Last Infusion: 08/13/20 17:29 Dose: 0 mls/hr Documented by: Admin: 08/13/20 16:18 Dose: 501 mls/hr Documented by: JESSICA Levofloxacin (Levaquin) 500 mg in 100 mls @ 100 mls/hr IV NOW ONE Stop: 08/13/20 18:01 Last Infusion: 08/13/20 17:30 Dose: 0 mls/hr Documented by: Admin: 08/13/20 17:10 Dose: 100 mls/hr Documented by: ELEANOR Vital Signs Vital signs: Vital Signs - 8 hr 08/13/20 15:41 08/13/20 15:43 08/13/20 16:00 Temperature 98.8 F Pulse Rate 122 H 109 H 104 H Respiratory Rate 20 17 13 Blood Pressure 133/76 156/74 H Pulse Oximetry 99 97 95 08/13/20 16:30 08/13/20 17:00 Temperature Pulse Rate 102 H 98 H Respiratory Rate 19 23 Blood Pressure 185/77 H 139/65 Pulse Oximetry 96 97 MDM - Back Pain/Injury Lab Data Result diagrams: 08/13/20 15:42 08/13/20 15:42 Labs: Lab Results 08/13/20 08/13/20 08/13/20 Range/Units 15:37 15:42 15:42 WBC 15.7 H (4.5-11.0) X10^3/uL RBC 4.58 (4.0-5.2) X10^6/uL Hgb 13.3 (12.0-16.0) g/dL Hct 39.6 (36-46) % MCV 86.3 (80-100) fL MCH 29.1 (26-34) PG MCHC 33.6 (30-36) % RDW 15.2 H (11.6-14.8) % Plt Count 236 (150-400) X10^3/uL Neut % (Auto) 83.0 H (50-75) % Lymph % (Auto) 7.8 L (25-40) % [place] % (Auto) 8.6 (3-14) % Eos % (Auto) 0.3 L (2-4) % Baso % (Auto) 0.3 (0-2) % Neut # (Auto) 34207 H (0373-2743) /uL Lymph # (Auto) 1200 (4133-8270) /uL [place] # (Auto) 1400 H (0-900) /uL Eos # (Auto) 0 (0-450) /uL Baso # (Auto) 0 (0-100) /uL Sodium 132 L (137-145) mmol/L Potassium 3.4 (3.4-5.1) mmol/L Chloride 99 (98-107) mmol/L Carbon Dioxide 23 (22-32) mmol/L BUN 7 (7-17) mg/dL Creatinine 0.73 (0.52-1.04) mg/dL Estimated GFR > 60.0 (>60) mL/min BUN/Creatinine Ratio 9.6 (6-22) Glucose 161 H (70-100) mg/dL Lactate (0.7-2.1) mmol/L Calcium 9.8 (8.4-10.2) mg/dL Total Bilirubin 0.9 (0.2-1.3) mg/dL AST 33 (14-36) IU/L ALT 45 H (<35) IU/L Alkaline Phosphatase 104 (38-126) U/L Total Creatine Kinase 56 (30-135) U/L CK-MB (CK-2) TNP CK-MB (CK-2) Rel Index TNP Troponin I < 0.012 (0.01-0.034) ng/mL Total Protein 7.7 (6.3-8.2) g/dL Albumin 4.2 (3.5-5.0) g/dL Globulin 3.5 (1.7-4.1) g/dL Albumin/Globulin Ratio 1.2 (1.0-2.8) Procalcitonin 0.77 H (<0.5) ng/mL Urine RBC 1-5/hpf (0-5/HPF) Urine WBC 5-10/hpf H (0-5/HPF) Ur Squamous Epith Cells 1-5 /hpf (0-5/HPF) Amorphous Sediment 1+ Urine Bacteria Few (2-10) H (None) Ur Culture Indicated? Specimen cultured SARS-CoV-2 (PCR) (Negative) 08/13/20 08/13/20 Range/Units 15:42 15:42 WBC (4.5-11.0) X10^3/uL RBC (4.0-5.2) X10^6/uL Hgb (12.0-16.0) g/dL Hct (36-46) % MCV (80-100) fL MCH (26-34) PG MCHC (30-36) % RDW (11.6-14.8) % Plt Count (150-400) X10^3/uL Neut % (Auto) (50-75) % Lymph % (Auto) (25-40) % [place] % (Auto) (3-14) % Eos % (Auto) (2-4) % Baso % (Auto) (0-2) % Neut # (Auto) (7433-7368) /uL Lymph # (Auto) (8956-5883) /uL [place] # (Auto) (0-900) /uL Eos # (Auto) (0-450) /uL Baso # (Auto) (0-100) /uL Sodium (137-145) mmol/L Potassium (3.4-5.1) mmol/L Chloride (98-107) mmol/L Carbon Dioxide (22-32) mmol/L BUN (7-17) mg/dL Creatinine (0.52-1.04) mg/dL Estimated GFR (>60) mL/min BUN/Creatinine Ratio (6-22) Glucose (70-100) mg/dL Lactate 1.1 (0.7-2.1) mmol/L Calcium (8.4-10.2) mg/dL Total Bilirubin (0.2-1.3) mg/dL AST (14-36) IU/L ALT (<35) IU/L Alkaline Phosphatase (38-126) U/L Total Creatine Kinase (30-135) U/L CK-MB (CK-2) CK-MB (CK-2) Rel Index Troponin I (0.01-0.034) ng/mL Total Protein (6.3-8.2) g/dL Albumin (3.5-5.0) g/dL Globulin (1.7-4.1) g/dL Albumin/Globulin Ratio (1.0-2.8) Procalcitonin (<0.5) ng/mL Urine RBC (0-5/HPF) Urine WBC (0-5/HPF) Ur Squamous Epith Cells (0-5/HPF) Amorphous Sediment Urine Bacteria (None) Ur Culture Indicated? SARS-CoV-2 (PCR) Negative (Negative) Urine Dip Bedside Urine Glucose 1000 mg/dl Bedside Urine Bilirubin - Negative Bedside Urine Ketone ++ 40 Urine Specific [place] 1.015 Bedside Urine Occult Blood ++ Bedside Urine pH 6 Bedside Urine Protein + 30 Bedside Urine Urobilinogen - Negative Bedside Urine Nitrite - Negative Bedside Urine Leukocytes - Negative Esterase MDM Narrative Medical decision making narrative: Patient returns with worsening symptoms after recent diagnosis of pyelonephritis. She had extensive workup and there was some question about admitting her yesterday but she felt a bit better. Though her labs have improved many ways she has had fever as high as 102, presents tachycardic at 122, has poor oral intake and feels much worse. I had lengthy discussion with the hospitalist and we sure the opinion that there is no indication to switch her antibiotic regimen at this point time as it is too soon to call her a medication failure, we will continue on quinolones and await cultures. Patient will be hospitalized for ongoing evaluation stabilization of her condition. Discharge Plan Departure Patient Disposition: Admitted as Observation Clinical Impression: Pyelonephritis Sepsis Qualifiers: Sepsis type: sepsis due to unspecified organism Sepsis acute organ dysfunction status: unspecified Qualified Code(s): A41.9 - Sepsis, unspecified organism Admit Date/Time: 08/13/20 17:04 Admit Provider: Stan oG
[2020-08-13 16:12] LABS: Lactate (Lactic Acid) 1.1 mmol/L (0.7-2.1)
[2020-08-13 16:14] LABS: Alanine Aminotransferase 45 IU/L (<35); Albumin 4.2 g/dL (3.5-5.0); Albumin Globulin Ratio 1.2 (1.0-2.8); Alkaline Phosphatase 104 U/L (38-126); Aspartate Aminotransferase 33 IU/L (14-36); BUN Creatinine Ratio 9.6 (6-22); Bilirubin Total 0.9 mg/dL (0.2-1.3); Blood Urea Nitrogen 7 mg/dL (7-17); Calcium 9.8 mg/dL (8.4-10.2); Carbon Dioxide 23 mmol/L (22-32); Chloride 99 mmol/L (98-107); Creatine Kinase 56 U/L (30-135); Estimated Glomerular Filt Rate > 60.0 mL/min (>60); Globulin 3.5 g/dL (1.7-4.1); Glucose 161 mg/dL (70-100); HEMOLYSIS < 15 (0-50); Potassium 3.4 mmol/L (3.4-5.1); Sodium 132 mmol/L (137-145); Total Protein 7.7 g/dL (6.3-8.2)
[2020-08-13] MEDS: SODIUM CHLORIDE 0.9% 1,503 ML 501 ML IV (16:18)
[2020-08-13 16:25] LABS: Troponin I < 0.012 ng/mL (0.01-0.034)
[2020-08-13 16:30] VITALS: BP 185/77; PULSE 102; RESP 19; O2SAT 96
[2020-08-13 16:30] LABS: Procalcitonin 0.77 ng/mL (<0.5)
[2020-08-13 16:52] LABS: COVID19 - ADMIT (NP swab/PCR) Negative (Negative)
[2020-08-13 17:00] VITALS: BP 139/65; PULSE 98; RESP 23; O2SAT 97
[2020-08-13 17:09] VITALS: BMI 44.6
[2020-08-13] MEDS: levoFLOXacin 500 MG/100 ML PIGGYBACK 100 MG IV (17:10)
[2020-08-13 17:35] VITALS: BP 138/69; PULSE 104; RESP 18; TEMP 37.4; O2SAT 98
--- NOTE | 2020-08-13 17:42 | PM.HP.1 ---
History of Present Illness History of Present Illness Date Patient Seen: 08/13/20 Time Patient Seen: 16:43 Chief complaint: states kidney infection is worse Narrative: Ms. Moseley is a 50W with PMH of recurrent kidney stones, anxiety, HTN, DM, MABEL who comes in to the hospital with abdominal pain, fevers, nausea. She said her symptoms started on Tuesday, they started with left sided flank pain which she has frequently because she has had multiple kidney stones. She has had to have lithotripsy in the past, but has not seen her urologist recently due to COVID. She is on flomax twice a day. However her pain got worse and because of this she presented to the ED initially yesterday. She had workup done that showed leukocytosis, CT scan showed nonobstructing kidney stones, no renal dysfunction. She was discharged on ciprofloxacin. She presented back today because she developed fevers, she continue to have nausea. Apparently she called her PCP who recommended her to come to the hospital. In the ED, she was afebrile, she was tachycardic to the 110s, other vitals normal. Labs were improving from yesterday with WBC of 15.7 from 17.9, sodium 132, procalcitonin of 0.77, lactate 1.1 from 2.4. Urinalysis showed 5-10 WBCs and few bacteria which was decreased from yesterday. Urinalysis from yesterday showed gram negative bacilli, and one draw of blood cultures showed staph in both aerobic and anaerobic bottles. She was ordered for levofloxacin and vancomycin. She was given sepsis protocol IV fluid bolus. She was admitted for further treatment. Patient History Medical History Allergies (~2006) Dyspareunia Endometriosis (~1993) GERD (gastroesophageal reflux disease) (~2003) Irritable bowel syndrome (~1994) Kidney stones (~1998) Sleep apnea (~2017) MEGHA (stress urinary incontinence, female) (~2015) Surgical History Anesthesia History of shoulder surgery History of tonsillectomy Hx laparoscopic cholecystectomy (~2017) Hx of laparoscopy S/P laparoscopic supracervical hysterectomy (~10/16/18) [place] teeth removed Family & Social History Family History Father Cancer Diabetes mellitus Hypertension Mother Stroke Sister Cancer Grandfather Cancer Social History: household members spouse Safety & Behavioral: Feels Safe in Current Yes Environment Been Physically Hurt or No Threatened By a Person Tobacco & Substance use: Smoking Status Never smoker alcohol intake never Substance Use Type does not use Meds Home Medications and Allergies Home Medications Medication Instructions Recorded Confirmed Type ibuprofen 200 mg PO PRN #0 02/24/11 11/16/18 History lisinopril 5 mg PO QDAY #0 02/25/11 11/16/18 History duloxetine 60 mg capsule,delayed 60 mg PO DAILY 09/25/18 11/16/18 History release ondansetron 4 mg disintegrating 4 mg PO Q6H PRN #15 tab 10/13/18 11/16/18 Rx tablet estradiol 0.1 mg/24 hr semiweekly 1 patch TRANSDERMAL 2XW #8 each 02/22/19 Rx transdermal patch ciprofloxacin HCl 500 mg PO BID #28 tab 08/12/20 Rx ondansetron 4 mg PO QID PRN #7 tab 08/12/20 Rx oxycodone 5 mg PO Q6H PRN #10 tab 08/12/20 Rx Allergies Allergy/AdvReac Type Severity Reaction Status Date / Time hydrocodone [From Vicodin] AdvReac Mild Nausea/Vomi Verified 11/16/18 07:58 ting Review of Systems Review of Systems Narrative: 14 systems reviewed and negative aside from HPI Exam Vital Signs (past 8 hours): - 08/13/20 15:41 08/13/20 15:43 08/13/20 16:00 Temperature 98.8 F Pulse Rate 122 H 109 H 104 H Respiratory Rate 20 17 13 Blood Pressure 133/76 156/74 H Pulse Oximetry 99 97 95 08/13/20 16:30 08/13/20 17:00 Temperature Pulse Rate 102 H 98 H Respiratory Rate 19 23 Blood Pressure 185/77 H 139/65 Pulse Oximetry 96 97 Oxygen Delivery Method Room Air Narrative Exam Narrative: GEN: NAD HEENT: moist mucous membranes, PERRL NECK: trachea midline, no JVD CV: tachycardic, with no murmurs PULM: clear bilaterally, no wheezes, rhonchi, rales ABD: soft, distended, left sided tednerness, no rebound/guarding, no organomegaly EXT: warm and well perfused with no edema NEURO: AAOx3, moving all extremities SKIN: no rashes BACK: left CVA tenderness PSYCH: pleasant, cooperative Objective Labs Result Diagrams: 08/13/20 15:42 08/13/20 15:42 Labs: Laboratory Results - last 24 hr 08/13/20 08/13/20 08/13/20 15:37 15:42 15:42 WBC 15.7 H RBC 4.58 Hgb 13.3 Hct 39.6 MCV 86.3 MCH 29.1 MCHC 33.6 RDW 15.2 H Plt Count 236 Neut % (Auto) 83.0 H Lymph % (Auto) 7.8 L [place] % (Auto) 8.6 Eos % (Auto) 0.3 L Baso % (Auto) 0.3 Neut # (Auto) 49078 H Lymph # (Auto) 1200 [place] # (Auto) 1400 H Eos # (Auto) 0 Baso # (Auto) 0 Sodium 132 L Potassium 3.4 Chloride 99 Carbon Dioxide 23 BUN 7 Creatinine 0.73 Estimated GFR > 60.0 BUN/Creatinine Ratio 9.6 Glucose 161 H Lactate Calcium 9.8 Total Bilirubin 0.9 AST 33 ALT 45 H Alkaline Phosphatase 104 Total Creatine Kinase 56 CK-MB (CK-2) TNP CK-MB (CK-2) Rel Index TNP Troponin I < 0.012 Total Protein 7.7 Albumin 4.2 Globulin 3.5 Albumin/Globulin Ratio 1.2 Procalcitonin 0.77 H Urine RBC 1-5/hpf Urine WBC 5-10/hpf H Ur Squamous Epith Cells 1-5 /hpf Amorphous Sediment 1+ Urine Bacteria Few (2-10) H Ur Culture Indicated? Specimen cultured SARS-CoV-2 (PCR) 08/13/20 08/13/20 15:42 15:42 WBC RBC Hgb Hct MCV MCH MCHC RDW Plt Count Neut % (Auto) Lymph % (Auto) [place] % (Auto) Eos % (Auto) Baso % (Auto) Neut # (Auto) Lymph # (Auto) [place] # (Auto) Eos # (Auto) Baso # (Auto) Sodium Potassium Chloride Carbon Dioxide BUN Creatinine Estimated GFR BUN/Creatinine Ratio Glucose Lactate 1.1 Calcium Total Bilirubin AST ALT Alkaline Phosphatase Total Creatine Kinase CK-MB (CK-2) CK-MB (CK-2) Rel Index Troponin I Total Protein Albumin Globulin Albumin/Globulin Ratio Procalcitonin Urine RBC Urine WBC Ur Squamous Epith Cells Amorphous Sediment Urine Bacteria Ur Culture Indicated? SARS-CoV-2 (PCR) Negative Assessment & Plan Assessment & Plan narrative: Ms. Moseley is a 50W with PMH of recurrent kidney stones who presents with acute pyelonephritis 1. Acute pyelonephritis, with sepsis -sepsis as evidenced by tachycardia, tachypnea, leukocytosis -has WBC initially of 17, procal today of 0.77 -UA yesterday positive with leuk esterase, bacteria, and WBC -urine culture with gram negative bacilli -source is secondary to urinary infection, and possibly bacteremia -imaging shows no obstructing stones -doubt that patient had antibiotic failure, as she has not had 48 hours of antibiotics, lab values appear to be improving -does not meet hospital specific criteria for sepsis based on sepsis 3, as sofa score 0 -continue on IV antibiotics with IV levofloxacin -follow up urine and blood cultures -pain control with tylenol, ketorolac, and morphine PRN -continue IVF at 150cc/hr while patient taking in poor POs 2. Bacteremia, acute -noted to have 1 draw with positive aerobic and anaerobic for staph from blood cultures on 08/12 -further speciation pending, sensitivities pending -repeated blood cultures here in ED on 08/13 -possibly a contaminant -for now ordered for IV vancomycin 3. Type 2 Diabetes -hold home oral medications -will check glucose achs and order insulin sliding scale 4. Hypertension -hold antihypertensives given infection 5. Anxiety -continue home duloxetine 6. Kidney stones -continue on home dose of flomax DIET: diabetic IVF: NS at 150cc/hr DVT ppx: lovenox sc CODE: Full, proxy is life partner Tre Scores SOFA PaO2/FIO2: >=400 mmHg Platelets: >= 150 Bilirubin: < 1.2 mg/dL Hypotension: MAP >= 70 mmHg [place] Coma Scale: 15 Renal: < 1.2 mg/dL SOFA Score: 0 Quality MIPS - Admit I confirm the patient?s Advance Care Plan is present, Code status is documented, Surrogate decision maker is in patient?s record [If Yes, STOP here]: Yes
[2020-08-13] MEDS: ONDANSETRON 4 MG/2 ML INJ IV ×2 (17:57→22:40)
[2020-08-13] MEDS: MORPHINE 2 MG/ML INJ IV (18:09)
[2020-08-13] MEDS: SODIUM CHLORIDE 0.9% 1,000 ML 150 ML IV (18:16)
[2020-08-13] MEDS: KETOROLAC 30 MG/ML VIAL IV (19:04)
[2020-08-13] MEDS: VANCOMYCIN 1,250 MG/250 ML PIGGYBACK 250 MG IV (19:05)
[2020-08-13] MEDS: DIPHENOXYLATE/ATROP 2.5/0.025 TABLET 2 EACH PO (20:07)
[2020-08-13] MEDS: HYDROMORPHONE 2 MG INJ IV (20:54)
[2020-08-14] VITALS (7 sets, daily range): BP systolic 129–160; BP diastolic 76–96; PULSE 80–100; RESP 16–20; TEMP 35.8–36.8; O2SAT 96–98
[2020-08-14] MEDS: PROMETHAZINE 25 MG TABLET PO (00:42)
[2020-08-14] MEDS: HYDROMORPHONE 2 MG INJ IV (01:18)
[2020-08-14] MEDS: SODIUM CHLORIDE 0.9% 1,000 ML 150 ML IV (02:15)
[2020-08-14] MEDS: VANCOMYCIN 1,250 MG/250 ML PIGGYBACK 250 MG IV (02:15)
[2020-08-14 05:45] LABS: Add Manual Diff / Slide Review NO; Basophils Absolute Auto 100 /uL (0-100); Basophils Percent Auto 1.3 % (0-2); Eosinophils Absolute Auto 100 /uL (0-450); Eosinophils Percent Auto 1.2 % (2-4); Hematocrit 37.3 % (36-46); Hemoglobin 12.4 g/dL (12.0-16.0); Lymphocytes Absolute Auto 1500 /uL (1100-4500); Lymphocytes Percent Auto 17.2 % (25-40); Mean Corpuscular HGB Conc 33.3 % (30-36); Mean Corpuscular Hemoglobin 29.1 PG (26-34); Mean Corpuscular Volume 87.4 fL (80-100); Monocytes Absolute Auto 800 /uL (0-900); Monocytes Percent Auto 8.8 % (3-14); Neutrophils Absolute Auto 6300 /uL (1500-7000); Neutrophils Percent Auto 71.5 % (50-75); Platelet Count 188 X10^3/uL (150-400); Red Blood Cell Count 4.27 X10^6/uL (4.0-5.2); Red Cell Distribution Width 15.2 % (11.6-14.8); White Blood Cell Count 8.8 X10^3/uL (4.5-11.0)
[2020-08-14 05:53] LABS: HEMOLYSIS < 15 (0-50); Potassium 3.5 mmol/L (3.4-5.1)
[2020-08-14 05:54] LABS: BUN Creatinine Ratio 12.9 (6-22); Blood Urea Nitrogen 8 mg/dL (7-17); Calcium 8.6 mg/dL (8.4-10.2); Carbon Dioxide 25 mmol/L (22-32); Chloride 103 mmol/L (98-107); Estimated Glomerular Filt Rate > 60.0 mL/min (>60); Glucose 130 mg/dL (70-100); Sodium 135 mmol/L (137-145)
[2020-08-14] MEDS: ONDANSETRON 4 MG/2 ML INJ IV (05:57)
[2020-08-14] MEDS: KETOROLAC 30 MG/ML VIAL IV ×3 (06:20→19:23)
[2020-08-14] MEDS: ENOXAPARIN 40 MG/0.4 ML SYRINGE SUBCUT ×2 (08:40→20:35)
[2020-08-14] MEDS: VANCOMYCIN 1,250 MG/250 ML PIGGYBACK 175 MG IV (10:16)
--- NOTE | 2020-08-14 15:05 | P.PN_ITS ---
Subjective Subjective Date Patient Seen: 08/14/20 Time Patient Seen: 08:05 Interval history: Today she is feeling slightly improved. Her pain is moderate instead of severe. She feels dehydrated. She has had a couple episodes of diarrhea. No fevers. Exam Vital Signs (past 8 hours): - 08/14/20 07:47 08/14/20 08:17 Temperature 98.2 F Pulse Rate 93 H Respiratory Rate 16 Blood Pressure 143/91 H Pulse Oximetry 96 97 Oxygen Delivery Method Room Air Oxygen Flow Rate 0 Narrative Exam Narrative: GEN: NAD HEENT: dry mucous membranes, PERRL NECK: trachea midline, no JVD CV: tachycardic, with no murmurs PULM: clear bilaterally, no wheezes, rhonchi, rales ABD: soft, distended, left sided tednerness, no rebound/guarding, no organomegaly EXT: warm and well perfused with no edema NEURO: AAOx3, moving all extremities SKIN: no rashes BACK: left CVA tenderness PSYCH: pleasant, cooperative Objective Labs Result Diagrams: 08/14/20 05:30 08/14/20 05:30 Labs: Laboratory Results - last 24 hr 08/13/20 08/13/20 08/13/20 15:37 15:42 15:42 WBC 15.7 H RBC 4.58 Hgb 13.3 Hct 39.6 MCV 86.3 MCH 29.1 MCHC 33.6 RDW 15.2 H Plt Count 236 Neut % (Auto) 83.0 H Lymph % (Auto) 7.8 L Benson % (Auto) 8.6 Eos % (Auto) 0.3 L Baso % (Auto) 0.3 Neut # (Auto) 86153 H Lymph # (Auto) 1200 Benson # (Auto) 1400 H Eos # (Auto) 0 Baso # (Auto) 0 Sodium 132 L Potassium 3.4 Chloride 99 Carbon Dioxide 23 BUN 7 Creatinine 0.73 Estimated GFR > 60.0 BUN/Creatinine Ratio 9.6 Glucose 161 H Lactate Calcium 9.8 Total Bilirubin 0.9 AST 33 ALT 45 H Alkaline Phosphatase 104 Total Creatine Kinase 56 CK-MB (CK-2) TNP CK-MB (CK-2) Rel Index TNP Troponin I < 0.012 Total Protein 7.7 Albumin 4.2 Globulin 3.5 Albumin/Globulin Ratio 1.2 Procalcitonin 0.77 H Urine RBC 1-5/hpf Urine WBC 5-10/hpf H Ur Squamous Epith Cells 1-5 /hpf Amorphous Sediment 1+ Urine Bacteria Few (2-10) H Ur Culture Indicated? Specimen cultured SARS-CoV-2 (PCR) 08/13/20 08/13/20 08/14/20 15:42 15:42 05:30 WBC 8.8 RBC 4.27 Hgb 12.4 Hct 37.3 MCV 87.4 MCH 29.1 MCHC 33.3 RDW 15.2 H Plt Count 188 Neut % (Auto) 71.5 Lymph % (Auto) 17.2 L Benson % (Auto) 8.8 Eos % (Auto) 1.2 L Baso % (Auto) 1.3 Neut # (Auto) 6300 Lymph # (Auto) 1500 Benson # (Auto) 800 Eos # (Auto) 100 Baso # (Auto) 100 Sodium Potassium Chloride Carbon Dioxide BUN Creatinine Estimated GFR BUN/Creatinine Ratio Glucose Lactate 1.1 Calcium Total Bilirubin AST ALT Alkaline Phosphatase Total Creatine Kinase CK-MB (CK-2) CK-MB (CK-2) Rel Index Troponin I Total Protein Albumin Globulin Albumin/Globulin Ratio Procalcitonin Urine RBC Urine WBC Ur Squamous Epith Cells Amorphous Sediment Urine Bacteria Ur Culture Indicated? SARS-CoV-2 (PCR) Negative 08/14/20 05:30 WBC RBC Hgb Hct MCV MCH MCHC RDW Plt Count Neut % (Auto) Lymph % (Auto) Benson % (Auto) Eos % (Auto) Baso % (Auto) Neut # (Auto) Lymph # (Auto) Benson # (Auto) Eos # (Auto) Baso # (Auto) Sodium 135 L Potassium 3.5 Chloride 103 Carbon Dioxide 25 BUN 8 Creatinine 0.62 Estimated GFR > 60.0 BUN/Creatinine Ratio 12.9 Glucose 130 H Lactate Calcium 8.6 Total Bilirubin AST ALT Alkaline Phosphatase Total Creatine Kinase CK-MB (CK-2) CK-MB (CK-2) Rel Index Troponin I Total Protein Albumin Globulin Albumin/Globulin Ratio Procalcitonin Urine RBC Urine WBC Ur Squamous Epith Cells Amorphous Sediment Urine Bacteria Ur Culture Indicated? SARS-CoV-2 (PCR) [facility] Medical History Allergies (~2006) Dyspareunia Endometriosis (~1993) GERD (gastroesophageal reflux disease) (~2003) Irritable bowel syndrome (~1994) Kidney stones (~1998) Sleep apnea (~2017) MEGHA (stress urinary incontinence, female) (~2015) Surgical History Anesthesia History of shoulder surgery History of tonsillectomy Hx laparoscopic cholecystectomy (~2017) Hx of laparoscopy S/P laparoscopic supracervical hysterectomy (~10/16/18) [place] teeth removed Family History Father Cancer Diabetes mellitus Hypertension Mother Stroke Sister Cancer Grandfather Cancer Social History household members: spouse Smoking Status: Never smoker alcohol intake: never Assessment & Plan Assessment & Plan narrative: Ms. Moseley is a 50W with PMH of recurrent kidney stones who presents with acute pyelonephritis 1. Acute pyelonephritis, with sepsis -sepsis as evidenced by tachycardia, tachypnea, leukocytosis -has WBC initially of 17, procal today of 0.77 -WBC improved to normal -UA yesterday positive with leuk esterase, bacteria, and WBC -urine culture with gram negative bacilli, Klebsiella, sensitive to cipro and le vaquin -source is secondary to urinary infection -imaging shows no obstructing stones -doubt that patient had antibiotic failure, as she has not had 48 hours of antibiotics, lab values appear to be improving -does not meet hospital specific criteria for sepsis based on sepsis 3, as sofa score 0 -continue on IV antibiotics with IV levofloxacin -follow up urine and blood cultures -pain control with tylenol, ketorolac, and morphine PRN -patient states still dehydrated, will rebolus IVF today 2. Bacteremia, acute, probable contaminant -noted to have 1 draw with positive aerobic and anaerobic for coag negative staph from blood cultures on 08/12 -repeated blood cultures here in ED on 08/13 and no growth to date -probable contaminant -did get two doses of vancomycin, but will dc for now, and follow up blood cultures 3. Type 2 Diabetes -hold home oral medications -will check glucose achs and order insulin sliding scale 4. Hypertension -hold antihypertensives given infection 5. Anxiety -continue home duloxetine 6. Kidney stones -continue on home dose of flomax DIET: diabetic IVF: NS at 150cc/hr DVT ppx: lovenox sc CODE: Full, proxy is life partner [facility] VTE Deep Vein Thrombosis/Pulmonary Embolism Present on Admission: No
[2020-08-14] MEDS: SODIUM CHLORIDE 0.9% 1,000 ML 1000 ML IV (15:34)
[2020-08-14] MEDS: levoFLOXacin 750 MG/150 ML PIGGYBACK 100 MG IV (17:33)
[2020-08-14] MEDS: ACETAMINOPHEN 325 MG TABLET 650 MG PO (17:33)
[2020-08-14 20:21] LABS: Clostridium Difficile Tox PCR Negative for C. diff (Negative)
[2020-08-14 20:23] LABS: Vancomycin Trough 8.1 ug/mL (10-20)
[2020-08-14] MEDS: VANCOMYCIN TROUGH 1 REQUEST MISC (20:34)
[2020-08-14] MEDS: PANTOPRAZOLE DR 20 MG TABLET PO (20:35)
[2020-08-14] MEDS: DIPHENOXYLATE/ATROP 2.5/0.025 TABLET 2 EACH PO (22:42)
[2020-08-15] VITALS: O2SAT 98
[2020-08-15 00:10] VITALS: BP 160/96; PULSE 100
[2020-08-15] MEDS: lisinopriL 20 MG TABLET 40 MG PO ×2 (00:10→08:32)
[2020-08-15 01:09] VITALS: BP 127/76; PULSE 89; RESP 16
[2020-08-15] MEDS: SODIUM CHLORIDE 0.9% FLUSH 10 ML IV (03:47)
[2020-08-15] MEDS: KETOROLAC 30 MG/ML VIAL IV (03:47)
[2020-08-15 04:48] LABS: Hematocrit 35.8 % (36-46); Hemoglobin 11.7 g/dL (12.0-16.0); Mean Corpuscular HGB Conc 32.6 % (30-36); Mean Corpuscular Hemoglobin 28.3 PG (26-34); Mean Corpuscular Volume 86.9 fL (80-100); Platelet Count 233 X10^3/uL (150-400); Red Blood Cell Count 4.12 X10^6/uL (4.0-5.2); Red Cell Distribution Width 14.8 % (11.6-14.8); White Blood Cell Count 8.2 X10^3/uL (4.5-11.0)
[2020-08-15 04:56] LABS: BUN Creatinine Ratio 14.8 (6-22); Blood Urea Nitrogen 8 mg/dL (7-17); Calcium 8.8 mg/dL (8.4-10.2); Carbon Dioxide 23 mmol/L (22-32); Chloride 106 mmol/L (98-107); Estimated Glomerular Filt Rate > 60.0 mL/min (>60); Glucose 160 mg/dL (70-100); HEMOLYSIS < 15 (0-50); Potassium 3.5 mmol/L (3.4-5.1); Sodium 137 mmol/L (137-145)
[2020-08-15] MEDS: PANTOPRAZOLE DR 20 MG TABLET PO (06:36)
[2020-08-15 07:00] VITALS: O2SAT 98
[2020-08-15 07:40] VITALS: BP 136/86; PULSE 87; RESP 16; TEMP 36.4; O2SAT 98
[2020-08-15] MEDS: INSULIN LISPRO 100 UNIT/ML 3ML VIAL SUBCUT (08:27)
[2020-08-15 08:32] VITALS: BP 136/86; PULSE 87
[2020-08-15] MEDS: ENOXAPARIN 40 MG/0.4 ML SYRINGE SUBCUT (08:32)
[2020-08-15] MEDS: LACTOBACILLUS ACIDOPHILUS TABLET 1 EACH PO (08:32)
[2020-08-15] MEDS: DULOXETINE 30 MG CAPSULE 60 MG PO (08:33)
--- NOTE | 2020-08-15 10:33 | PC.NURSE ---
Patient A/O x 3, prepared for discharge. Given education regarding f/u appointment, antibiotics, and s/s of worsening condition. Patient verbalized understanding. Patient's IV removed. Patient tolerated. Patient discharged via wheelchair with assist from aide.
--- NOTE | 2020-08-15 20:10 | P.DS_ITS ---
History of Present Illness History of Present Illness Chief complaint: states kidney infection is worse Narrative: Ms. Moseley is a 50W with PMH of recurrent kidney stones, anxiety, HTN, DM, MABEL who comes in to the hospital with abdominal pain, fevers, nausea. She said her symptoms started on Tuesday, they started with left sided flank pain which she has frequently because she has had multiple kidney stones. She has had to have lithotripsy in the past, but has not seen her urologist recently due to COVID. She is on flomax twice a day. However her pain got worse and because of this she presented to the ED initially yesterday. She had workup done that showed leukocytosis, CT scan showed nonobstructing kidney stones, no renal dysfunction. She was discharged on ciprofloxacin. She presented back today because she developed fevers, she continue to have nausea. Apparently she called her PCP who recommended her to come to the hospital. In the ED, she was afebrile, she was tachycardic to the 110s, other vitals normal. Labs were improving from yesterday with WBC of 15.7 from 17.9, sodium 132, procalcitonin of 0.77, lactate 1.1 from 2.4. Urinalysis showed 5-10 WBCs and few bacteria which was decreased from yesterday. Urinalysis from yesterday showed gram negative bacilli, and one draw of blood cultures showed staph in both aerobic and anaerobic bottles. She was ordered for levofloxacin and vancomycin. She was given sepsis protocol IV fluid bolus. She was admitted for further treatment. Discharge Providers Provider Date of admission: 08/13/20 17:04 Discharge Date: 08/15/20 Primary care physician: Ani Reed PA-C Consults: 08/13/20 20:45 Consult to Respiratory Therapy Evaluate & Treat Comment: Cpap Physician Instructions: Evaluate and treat Discharge provider: Stan Go MD Summary Hospital Course Discharge Diagnosis: 1. Acute pyelonephritis with sepsis 2. Type 2 Diabetes 3. Hypertension 4. Anxiety 5. Kidney stones 6. Hepatomegaly, with small nodules Hospital Course: Ms. Moseley was admitted with flank pain. She had lekocytosis, tachycardia and tachypnea. She had acute pyelonephritis, initial WBC of 17, that normalized by discharge. Urine cultures showed Klebsiella that was sensitive to ciprofloxacin and levaquin. She improved with antibiotics. She was discharged home to complete a 14 day course of antibiotics with ciprofloxacin. She has chronic problems with kidney stones, none were obstructing, but she was recommended to follow up with urology. She had hepatomegaly with small nodules of uncertain etiology, she is recommended to have follow up CT in 3 months to evaluate if any changes in these nodules. Exam Vital Signs (past 8 hours): Oxygen Delivery Method Room Air Oxygen Flow Rate 0 Narrative Exam Narrative: GEN: NAD HEENT: dry mucous membranes, PERRL NECK: trachea midline, no JVD CV: tachycardic, with no murmurs PULM: clear bilaterally, no wheezes, rhonchi, rales ABD: soft, distended, left sided tednerness, no rebound/guarding, no organomegaly EXT: warm and well perfused with no edema NEURO: AAOx3, moving all extremities SKIN: no rashes BACK: left CVA tenderness PSYCH: pleasant, cooperative Objective Labs Result Diagrams: 08/15/20 04:24 08/15/20 04:24 Labs: Laboratory Results - last 24 hr 08/14/20 08/14/20 08/15/20 19:30 19:42 04:24 WBC 8.2 RBC 4.12 Hgb 11.7 L Hct 35.8 L MCV 86.9 MCH 28.3 MCHC 32.6 RDW 14.8 Plt Count 233 Sodium Potassium Chloride Carbon Dioxide BUN Creatinine Estimated GFR BUN/Creatinine Ratio Glucose Calcium Vancomycin Trough 8.1 L C. difficile Tox (PCR) Negative for c. diff 08/15/20 04:24 WBC RBC Hgb Hct MCV MCH MCHC RDW Plt Count Sodium 137 Potassium 3.5 Chloride 106 Carbon Dioxide 23 BUN 8 Creatinine 0.54 Estimated GFR > 60.0 BUN/Creatinine Ratio 14.8 Glucose 160 H Calcium 8.8 Vancomycin Trough C. difficile Tox (PCR) [facility] Medical History Allergies (~2006) Dyspareunia Endometriosis (~1993) GERD (gastroesophageal reflux disease) (~2003) Irritable bowel syndrome (~1994) Kidney stones (~1998) Sleep apnea (~2017) MEGHA (stress urinary incontinence, female) (~2016) Surgical History Anesthesia History of shoulder surgery History of tonsillectomy Hx laparoscopic cholecystectomy (~2017) Hx of laparoscopy S/P laparoscopic supracervical hysterectomy (~10/16/18) [place] teeth removed Family History Father Cancer Diabetes mellitus Hypertension Mother Stroke Sister Cancer Grandfather Cancer Social History household members: spouse Smoking Status: Never smoker alcohol intake: never Discharge Plan Discharge Plan Patient Disposition: Home Provider Discharge Comment: Ms. Moseley came in with fevers and abdominal and flank pain. She had a kidney infection and was given antibiotics. She has small stones in her kidney, but they were not causing blockage. She improved with antibiotics. She also has a fatty liver with very small nodules. She should have a follow up CAT scan in 3 months to make sure there is no change. She should follow up with her PCP and urologist. She already has a prescription for ciprofloxacin for her infection which she will complete. Discharge orders & Medications Prescriptions: Continued ibuprofen 200 MG tablet 200 mg PO PRN Qty: 0 RF: 0 lisinopril 10 MG tablet 40 mg PO QDAY Qty: 0 RF: 0 duloxetine [Cymbalta] 60 mg capsule,delayed release(DR/EC) 60 mg PO DAILY RF: 0 ondansetron 4 mg tablet,disintegrating 4 mg PO Q6H PRN (Reason: nausea and vomiting) Qty: 15 RF: 1 metformin 500 mg tablet 500 mg DAILY RF: 0 Jardiance 25 mg tablet 25 mg DAILY RF: 0 Bydureon BCise 2 mg/0.85 mL auto-injector 2 mg SUBCUT WEEKLY RF: 0 ciprofloxacin HCl 500 mg tablet 500 mg PO BID Qty: 28 RF: 0 oxycodone 5 mg tablet 5 mg PO Q6H PRN (Reason: pain) Qty: 10 RF: 0 Discontinued ondansetron 4 mg tablet,disintegrating 4 mg PO QID PRN (Reason: nausea and vomiting) Qty: 7 RF: 0 Follow up/Referrals: Ani Reed PA-C [Primary Care Provider] - Diet/Activity/Treatments Diet: Carb-consistent/Diabetic Visit Report/Discharge Packet Instructions: Kidney Infection, DI for Kidney Infection Discharge Data Primary Care Provider: Ani Reed Attending Provider: Go,Stan Quality VTE Deep Vein Thrombosis/Pulmonary Embolism Present on Admission: No MIPS - DC The patient has current or prior documentation of left ventricular ejection fraction (LVEF) less than 40%, or moderate or severely depressed left ventricular systolic function.: No
== END 2020-08-15 10:45 | disposition home or self-care (01) ==
LOC: ED 17:02 → AC 17:05
PROVIDERS: Admitting Provider Internal Medicine; Emergency Provider Emergency Medicine; PCP Physician Assistant Medical; Referring Provider Emergency Medicine; Visit Provider Internal Medicine
DX: N10 Acute pyelonephritis (principal); B95.8 Unspecified staphylococcus as the cause of diseases classified elsewhere; M54.9 Dorsalgia, unspecified; R50.9 Fever, unspecified; R16.0 Hepatomegaly, not elsewhere classified; N20.0 Calculus of kidney; I10 Essential (primary) hypertension; G47.33 Obstructive sleep apnea (adult) (pediatric); E11.9 Type 2 diabetes mellitus without complications; F41.9 Anxiety disorder, unspecified; Z20.822 Contact with and (suspected) exposure to COVID-19
CPT/HCPCS: 36415; 71045; 80048; 80053; 80202; 81003; 81015; 82550; 82962; 83605; 84145; 84484; 85025; 85027; 87040; 87086; 87493; 87635; 93005; 93010; 96361; 96365; 96366; 96367; 96372; 96375; 96376; 99284; C9803; G0378; J1170; J1650; J1815; J1885; J1956; J2270; J2405

== ENCOUNTER 2020-08-22 12:40 | Emergency (ER) | payer OTHER, SELFPAY ==
[2020-08-22] VITALS (15 sets, daily range): BP systolic 140–235; BP diastolic 65–105; PULSE 69–114; RESP 16–20; TEMP 35.6–36.8; O2SAT 95–99; BMI 44.6
[2020-08-22 13:33] LABS: Add Manual Diff / Slide Review NO; Basophils Absolute Auto 100 /uL (0-100); Basophils Percent Auto 0.9 % (0-2); Eosinophils Absolute Auto 200 /uL (0-450); Eosinophils Percent Auto 1.8 % (2-4); Hematocrit 39.6 % (36-46); Lymphocytes Absolute Auto 3300 /uL (1100-4500); Mean Corpuscular HGB Conc 32.7 % (30-36); Mean Corpuscular Hemoglobin 28.1 PG (26-34); Monocytes Absolute Auto 700 /uL (0-900); Monocytes Percent Auto 5.3 % (3-14); Neutrophils Absolute Auto 8300 /uL (1500-7000); Platelet Count 518 X10^3/uL (150-400); Red Cell Distribution Width 14.6 % (11.6-14.8); White Blood Cell Count 12.6 X10^3/uL (4.5-11.0)
[2020-08-22 13:37] LABS: Alanine Aminotransferase 49 IU/L (<35); Albumin 4.3 g/dL (3.5-5.0); Albumin Globulin Ratio 1.2 (1.0-2.8); Alkaline Phosphatase 104 U/L (38-126); Aspartate Aminotransferase 63 IU/L (14-36); BUN Creatinine Ratio 15.1 (6-22); Bilirubin Total 0.2 mg/dL (0.2-1.3); Blood Urea Nitrogen 11 mg/dL (7-17); Calcium 9.8 mg/dL (8.4-10.2); Carbon Dioxide 24 mmol/L (22-32); Chloride 107 mmol/L (98-107); Estimated Glomerular Filt Rate > 60.0 mL/min (>60); Globulin 3.5 g/dL (1.7-4.1); Glucose 150 mg/dL (70-100); HEMOLYSIS < 15 (0-50); Lipase 295 U/L (23-300); Potassium 4.1 mmol/L (3.4-5.1); Sodium 140 mmol/L (137-145); Total Protein 7.8 g/dL (6.3-8.2)
[2020-08-22] MEDS: ONDANSETRON 4 MG/2 ML INJ IV ×2 (14:29→19:22)
[2020-08-22] MEDS: KETOROLAC 30 MG/ML VIAL IV (15:09)
--- NOTE | 2020-08-22 15:22 | ED_ITS ---
HPI - Female Genitourinary General Chief complaint: Urogenital-Female Stated complaint: kidney stones Time Seen by Provider: 08/22/20 14:27 Source: patient Mode of arrival: Ambulatory Limitations: no limitations History of Present Illness HPI Narrative: This is a 50-year-old female comes emergency department with co mplaint of increasing left lower abdominal and flank pain. Patient was found to have pyelonephritis around 08/14, she does return home and then returned within 24 hours and was admitted. At that time she did not have a ureteral stone but had some stones noted in her kidney itself. Patient states she has not had any fevers. She has been nauseated but not actively vomiting. She has had rapidly worsening pain. She states she has had some dysuria, sense of urgency and incomplete emptying. Patient does have a known history of kidney stones and has had prior lithotripsy. Patient is currently on Cipro she has had about a week of antibiotics and is due to finish another additional week at this time. Patient states she has had a hysterectomy in addition to her prior lithotripsy. She is allergic to hydrocodone. She does have a history of diabetes, hypertension and dyslipidemia. Her urologist was Dr. Ga and she has seen Dr. Dodd. Related Data Home Medications Medication Instructions Recorded Confirmed ibuprofen 200 mg PO PRN #0 02/24/11 08/14/20 lisinopril 40 mg PO QDAY #0 02/25/11 08/14/20 duloxetine 60 mg capsule,delayed 60 mg PO DAILY 09/25/18 08/14/20 release Bydureon BCise 2 mg SUBCUT WEEKLY 08/14/20 08/14/20 Jardiance 25 mg DAILY 08/14/20 08/14/20 metformin 500 mg DAILY 08/14/20 08/14/20 Previous Rx's Medication Instructions Recorded ondansetron 4 mg disintegrating 4 mg PO Q6H PRN #15 tab 10/13/18 tablet ciprofloxacin HCl 500 mg PO BID #28 tab 08/12/20 oxycodone 5 mg PO Q6H PRN #10 tab 08/12/20 Allergies Allergy/AdvReac Type Severity Reaction Status Date / Time hydrocodone [From Vicodin] AdvReac Mild Nausea/Vomi Verified 08/22/20 12:50 ting Review of Systems Review of Systems ROS Unobtainable: All systems reviewed & are unremarkable except as noted in HPI and below Patient History Medical History Allergies (~2006) Dyspareunia Endometriosis (~1993) GERD (gastroesophageal reflux disease) (~2003) Irritable bowel syndrome (~1994) Kidney stones (~1998) Sleep apnea (~2017) MEGHA (stress urinary incontinence, female) (~2015) Surgical History Anesthesia History of shoulder surgery History of tonsillectomy Hx laparoscopic cholecystectomy (~2017) Hx of laparoscopy S/P laparoscopic supracervical hysterectomy (~10/16/18) [place] teeth removed Family History Father Cancer Diabetes mellitus Hypertension Mother Stroke Sister Cancer Grandfather Cancer alcohol intake frequency: holidays/special occasions only Substance Use Type: does not use Exam Narrative Exam Narrative: GENERAL: Alert and oriented x three, female in moderate to severe discomfort on exam. HEENT: Head normocephalic, atraumatic, EOMI, pupils reactive, face symmetric, moist mucous membranes NECK: Supple, full range of motion CARDIOVASCULAR: Regular rate and rhythm without murmurs, rubs or gallops. RESPIRATORY: Breath sounds equal bilaterally, no wheezes rales or rhonchi. ABDOMEN: Soft, positive for left lower quadrant. Normoactive bowel sounds all 4 quadrants. No guarding or rebound, rigidity, no mass : Positive for left CVA tenderness EXTREMITIES: Normal range of motion, no clubbing or edema. Neurovascularly intact NEUROLOGICAL: Cranial nerves II through XII grossly intact. Moving all extremities SKIN: Warm, dry, no petechiae, no rashes or lesions. Initial Vital Signs Initial Vital Signs: Vital Signs Temperature 96.1 F L 08/22/20 12:50 Pulse Rate 88 08/22/20 12:50 Respiratory Rate 20 08/22/20 12:50 Blood Pressure 235/105 H 08/22/20 12:50 Pulse Oximetry 99 08/22/20 12:50 Course Orders Ordered: ED Orders 08/22/20 12:56 EKG-12 Lead Stat 08/22/20 13:20 Complete Blood Count AUTO DIFF Stat Comprehensive Metabolic Panel Stat Lactate (Lactic Acid) Stat Lipase Stat Procalcitonin Stat 08/22/20 15:32 CT abdomen pelvis w con Stat 08/22/20 16:00 Urine Culture Stat Urine Microscopic Stat 08/22/20 19:10 COVID19 -Nasal swab/Pre-Proc Stat Sodium Chloride (Normal Saline 0.9%) 1,000 mls @ 150 mls/hr IV CONT YING Last Admin: 08/22/20 19:27 Dose: 150 mls/hr Documented by: MARGARET Discontinued Medications Hydromorphone HCl (Hydromorphone 1 Mg Inj) 1 mg IV NOW ONE Stop: 08/22/20 15:37 Last Admin: 08/22/20 15:57 Dose: 1 mg Documented by: RAMIRO Hydromorphone HCl (Hydromorphone 1 Mg Inj) 1 mg IV NOW ONE Stop: 08/22/20 16:58 Last Admin: 08/22/20 17:02 Dose: 1 mg Documented by: RAMIRO Hydromorphone HCl (Hydromorphone 1 Mg Inj) 1 mg IV NOW ONE Stop: 08/22/20 17:29 Last Admin: 08/22/20 17:36 Dose: 1 mg Documented by: RAMIRO Hydromorphone HCl (Hydromorphone 1 Mg Inj) 1 mg IV NOW ONE Stop: 08/22/20 19:14 Last Admin: 08/22/20 19:22 Dose: 1 mg Documented by: MARGARET Sodium Chloride (Normal Saline 0.9%) 1,000 mls @ 1,000 mls/hr IV BOLUS ONE Stop: 08/22/20 16:32 Last Infusion: 08/22/20 17:33 Dose: 0 mls/hr Documented by: Admin: 08/22/20 15:56 Dose: 1,000 mls/hr Documented by: RAMIRO Piperacillin Sod/Tazobactam (Sod 4.5 gm/ Sodium Chloride) 100 mls @ 200 mls/hr IV NOW ONE Stop: 08/22/20 15:38 Last Infusion: 08/22/20 16:35 Dose: 0 mls/hr Documented by: Admin: 08/22/20 15:59 Dose: 200 mls/hr Documented by: RAMIRO Sodium Chloride (Normal Saline 0.9%) 1,000 mls @ 1,000 mls/hr IV BOLUS ONE Stop: 08/22/20 17:56 Last Infusion: 08/22/20 19:08 Dose: 0 mls/hr Documented by: Admin: 08/22/20 17:34 Dose: 1,000 mls/hr Documented by: RAMIRO Ketorolac Tromethamine (Ketorolac 30 Mg/Ml Vial) 30 mg IV NOW ONE Stop: 08/22/20 14:57 Last Admin: 08/22/20 15:09 Dose: 30 mg Documented by: RAMIRO Ondansetron HCl (Ondansetron 4 Mg/2 Ml Inj) 4 mg IV NOW ONE Stop: 08/22/20 14:26 Last Admin: 08/22/20 14:29 Dose: 4 mg Documented by: HIMANSHU Ondansetron HCl (Ondansetron 4 Mg/2 Ml Inj) 4 mg IV NOW ONE Stop: 08/22/20 19:14 Last Admin: 08/22/20 19:22 Dose: 4 mg Documented by: MARGARET Tamsulosin HCl (Tamsulosin 0.4 Mg Capsule) 0.4 mg PO NOW ONE Stop: 08/22/20 16:31 Last Admin: 08/22/20 17:02 Dose: 0.4 mg Documented by: RAMIRO Consultations Consultation #1: Dr. Valentine, urology at [facility]. Is willing to stent patient, for intractable pain, we did discuss patient has positive yeast on her urine today but no bacteria is noted. She does have elevated white cells. Elevated white blood cell count on her serum labs. Procalcitonin is actually significantly improved from her last. Asks for discussion with hospitalist and if they have bed availability. Time: 18:13 Consultation #2: Dr. Trevino accepts for transfer to [facility]. Reviewed patient's labs, it recent imaging as well as prior. Discussed possibility this evening and that Dr. Valentine would like to be contacted when patient is likely to arrive for decision. Vital Signs Vital signs: Vital Signs - 8 hr 08/22/20 12:50 08/22/20 13:06 08/22/20 16:04 Temperature 96.1 F L Pulse Rate 88 83 87 Respiratory Rate 20 Blood Pressure 235/105 H 196/88 H Pulse Oximetry 99 98 97 08/22/20 16:05 08/22/20 16:30 08/22/20 16:31 Temperature Pulse Rate 86 78 114 H Respiratory Rate Blood Pressure 178/74 H 210/99 H Pulse Oximetry 97 96 96 08/22/20 16:45 08/22/20 19:00 08/22/20 19:31 Temperature 98.3 F Pulse Rate 79 94 H Respiratory Rate 16 Blood Pressure 153/65 H 167/77 H Pulse Oximetry 97 96 MDM - Female Genitourinary Lab Data Attestation: I reviewed the patient's lab results. Result diagrams: 08/22/20 13:20 08/22/20 13:20 Labs: Lab Results 08/22/20 08/22/20 08/22/20 Range/Units 13:20 13:20 13:20 WBC 12.6 H (4.5-11.0) X10^3/uL RBC 4.60 (4.0-5.2) X10^6/uL Hgb 13.0 (12.0-16.0) g/dL Hct 39.6 (36-46) % MCV 86.0 (80-100) fL MCH 28.1 (26-34) PG MCHC 32.7 (30-36) % RDW 14.6 (11.6-14.8) % Plt Count 518 H (150-400) X10^3/uL Neut % (Auto) 66.0 (50-75) % Lymph % (Auto) 26.0 (25-40) % [place] % (Auto) 5.3 (3-14) % Eos % (Auto) 1.8 L (2-4) % Baso % (Auto) 0.9 (0-2) % Neut # (Auto) 8300 H (5357-2885) /uL Lymph # (Auto) 3300 (6599-8949) /uL [place] # (Auto) 700 (0-900) /uL Eos # (Auto) 200 (0-450) /uL Baso # (Auto) 100 (0-100) /uL Sodium 140 (137-145) mmol/L Potassium 4.1 (3.4-5.1) mmol/L Chloride 107 (98-107) mmol/L Carbon Dioxide 24 (22-32) mmol/L BUN 11 (7-17) mg/dL Creatinine 0.73 (0.52-1.04) mg/dL Estimated GFR > 60.0 (>60) mL/min BUN/Creatinine Ratio 15.1 (6-22) Glucose 150 H (70-100) mg/dL Lactate (0.7-2.1) mmol/L Calcium 9.8 (8.4-10.2) mg/dL Total Bilirubin 0.2 (0.2-1.3) mg/dL AST 63 H (14-36) IU/L ALT 49 H (<35) IU/L Alkaline Phosphatase 104 (38-126) U/L Total Protein 7.8 (6.3-8.2) g/dL Albumin 4.3 (3.5-5.0) g/dL Globulin 3.5 (1.7-4.1) g/dL Albumin/Globulin Ratio 1.2 (1.0-2.8) Lipase 295 (23-300) U/L Procalcitonin 0.26 (<0.5) ng/mL Urine RBC (0-5/HPF) Urine WBC (0-5/HPF) Urine Bacteria (None) Urine Yeast (None) Ur Culture Indicated? SARS-CoV-2 (PCR) (Negative) 08/22/20 08/22/20 08/22/20 Range/Units 13:20 16:00 19:10 WBC (4.5-11.0) X10^3/uL RBC (4.0-5.2) X10^6/uL Hgb (12.0-16.0) g/dL Hct (36-46) % MCV (80-100) fL MCH (26-34) PG MCHC (30-36) % RDW (11.6-14.8) % Plt Count (150-400) X10^3/uL Neut % (Auto) (50-75) % Lymph % (Auto) (25-40) % [place] % (Auto) (3-14) % Eos % (Auto) (2-4) % Baso % (Auto) (0-2) % Neut # (Auto) (3351-7214) /uL Lymph # (Auto) (5127-0965) /uL [place] # (Auto) (0-900) /uL Eos # (Auto) (0-450) /uL Baso # (Auto) (0-100) /uL Sodium (137-145) mmol/L Potassium (3.4-5.1) mmol/L Chloride (98-107) mmol/L Carbon Dioxide (22-32) mmol/L BUN (7-17) mg/dL Creatinine (0.52-1.04) mg/dL Estimated GFR (>60) mL/min BUN/Creatinine Ratio (6-22) Glucose (70-100) mg/dL Lactate 1.9 (0.7-2.1) mmol/L Calcium (8.4-10.2) mg/dL Total Bilirubin (0.2-1.3) mg/dL AST (14-36) IU/L ALT (<35) IU/L Alkaline Phosphatase (38-126) U/L Total Protein (6.3-8.2) g/dL Albumin (3.5-5.0) g/dL Globulin (1.7-4.1) g/dL Albumin/Globulin Ratio (1.0-2.8) Lipase (23-300) U/L Procalcitonin (<0.5) ng/mL Urine RBC 1-5/hpf (0-5/HPF) Urine WBC 5-10/hpf H (0-5/HPF) Urine Bacteria None seen (None) Urine Yeast 5-10/hpf H (None) Ur Culture Indicated? Specimen cultured SARS-CoV-2 (PCR) Negative (Negative) Urine Dip Bedside Urine Glucose 1000 mg/dl Bedside Urine Bilirubin - Negative Bedside Urine Ketone - Negative Urine Specific [place] 1.020 Bedside Urine Occult Blood +++ Bedside Urine pH 6.0 Bedside Urine Protein - Negative Bedside Urine Urobilinogen - Negative Bedside Urine Nitrite - Negative Bedside Urine Leukocytes - Negative Esterase Imaging Data CT scan - abdomen/pelvis: Radiologist's Impression: Criss Moseley 50 F [address] [id number] Scan ReportSigned Patient: Criss Moseley KMR#: [id number]: 1970Acct:[id number]/Sex: 50 / FDate of Service: 08/22/20Loc: EDAccession Number: [id number] Procedure: CT abdomen pelvis w con Ordering Provider: Rosetta Childress D.O. PROCEDURE: CT ABDOMEN PELVIS W CON INDICATIONS: left flank/abd pain, pyelonephritis, hx kidney stones. TECHNIQUE: After the administration of IV contrast, axial sections were acquired from the lung bases to the pubic symphysis. Coronal and sagittal reformats were performed. For radiation dose reduction, the following was used: automated exposure control, adjustment of mA and/or kV according to patient size. COMPARISON: [facility], CT, CT KIDNEY URETER BLADDER (KUB), 08/12/2020, 6:11. FINDINGS: Image quality: Excellent. Lung bases: Unremarkable. Heart: No significant findings. ABDOMEN: Liver: Liver is enlarged with steatosis. Gallbladder: The gallbladder has been removed. Biliary ducts: Unremarkable. Pancreas: Unremarkable. Spleen: Unremarkable. Adrenal Glands: Unremarkable. Kidneys and Ureters: Right kidney demonstrates a stable appearance of punctate nonobstructing renal calculi. Subcentimeter calcifications are also noted within the left kidney most prominent inferiorly measuring approximately 4-5 mm. There is a proximal left ureteral calcification, 5 mm Hounsfield units 953. There is mild to moderate proximal hydroureter as well as hydronephrosis. Perinephric stranding is present. Stomach and Bowel: Stomach, small bowel loops, and colon are unremarkable. Peritoneum: No abnormal intraperitoneal fluid. No free air. Ventral Wall: No hernia. Abdominal Nodes: No retroperitoneal or mesenteric adenopathy by size criteria. Vessels: Aorta and inferior vena cava are normal in size. PELVIS: Pelvic Organs: Unremarkable. Bladder: Unremarkable. Pelvic Nodes: No enlarged lymph nodes. Miscellaneous: No inguinal hernias are seen. Bones: Unremarkable. IMPRESSION: 1. Proximal left ureteral calculus causing proximal left hydroureter as well as hydronephrosis. Perinephric stranding is present. 2. Additional nonobstructing bilateral renal calculi are also identified. Dictated by: Jocelin Santoyo M.D. on 08/22/2020 at 15:58 Approved by: Jocelin Santoyo M.D. on 08/22/2020 at 16:02 ECG Data Attestation: I personally reviewed and interpreted this ECG as follows: Prior ECG tracings: available for review Interpretation: Sinus rhythm high, rate of 76, DC 126, QRS 82. No acute ST elevation depression noted. Patient has had prior which appears similar. MDM Narrative Medical decision making narrative: This a 50-year-old female with known kidney stones who is complaining of increasing left lower quadrant and flank pain. Patient was seen here recently for pyelonephritis. Her urine culture at that time grew out negative. Patient does have stranding at the time without renal stone is noted to have a new stone today. Her white count is trending back upwards. She has mild bump in her LFTs but does not have any right quadrant tenderness. Her procalcitonin has actually improved. She has been afebrile in the department but persistently tachycardic and improved somewhat after fluids. She has had significant pain and is found to have a [address] abdomen with contrast. Patient does have minor hydro and hydroureter. I spoke with her urology team, Dr. Valentine currently except for treatment for possible stent but asked that we speak with the hospitalist and verify bed availability. Spoke with the hospitalist who kindly accepts the patient for transfer. Patient's heart rate has been improving here in the department. She is currently on 150 cc after having 3 years of fluid, multiple rounds of pain medication. Flomax, Zosyn and Zofran. Discharge Plan Departure Patient Disposition: [facility] Clinical Impression: Calculus of distal left ureter, Hydroureter on left Prescriptions: No Action ibuprofen 200 MG tablet 200 mg PO PRN Qty: 0 RF: 0 lisinopril 10 MG tablet 40 mg PO QDAY Qty: 0 RF: 0 duloxetine [Cymbalta] 60 mg capsule,delayed release(DR/EC) 60 mg PO DAILY RF: 0 ondansetron 4 mg tablet,disintegrating 4 mg PO Q6H PRN (Reason: nausea and vomiting) Qty: 15 RF: 1 metformin 500 mg tablet 500 mg DAILY RF: 0 Jardiance 25 mg tablet 25 mg DAILY RF: 0 Bydureon BCise 2 mg/0.85 mL auto-injector 2 mg SUBCUT WEEKLY RF: 0 ciprofloxacin HCl 500 mg tablet 500 mg PO BID Qty: 28 RF: 0 oxycodone 5 mg tablet 5 mg PO Q6H PRN (Reason: pain) Qty: 10 RF: 0 Referrals: Ani Reed PA-C [Primary Care Provider] -
--- NOTE | 2020-08-22 15:32 | DI.CT.S_ITS ---
PROCEDURE: CT ABDOMEN PELVIS W CON INDICATIONS: left flank/abd pain, pyelonephritis, hx kidney stones. TECHNIQUE: After the administration of IV contrast, axial sections were acquired from the lung bases to the pubic symphysis. Coronal and sagittal reformats were performed. For radiation dose reduction, the following was used: automated exposure control, adjustment of mA and/or kV according to patient size. COMPARISON: [facility], CT, CT KIDNEY URETER BLADDER (KUB), 08/12/2020, 6:11. FINDINGS: Image quality: Excellent. Lung bases: Unremarkable. Heart: No significant findings. ABDOMEN: Liver: Liver is enlarged with steatosis. Gallbladder: The gallbladder has been removed. Biliary ducts: Unremarkable. Pancreas: Unremarkable. Spleen: Unremarkable. Adrenal Glands: Unremarkable. Kidneys and Ureters: Right kidney demonstrates a stable appearance of punctate nonobstructing renal calculi. Subcentimeter calcifications are also noted within the left kidney most prominent inferiorly measuring approximately 4-5 mm. There is a proximal left ureteral calcification, 5 mm Hounsfield units 953. There is mild to moderate proximal hydroureter as well as hydronephrosis. Perinephric stranding is present. Stomach and Bowel: Stomach, small bowel loops, and colon are unremarkable. Peritoneum: No abnormal intraperitoneal fluid. No free air. Ventral Wall: No hernia. Abdominal Nodes: No retroperitoneal or mesenteric adenopathy by size criteria. Vessels: Aorta and inferior vena cava are normal in size. PELVIS: Pelvic Organs: Unremarkable. Bladder: Unremarkable. Pelvic Nodes: No enlarged lymph nodes. Miscellaneous: No inguinal hernias are seen. Bones: Unremarkable. IMPRESSION: 1. Proximal left ureteral calculus causing proximal left hydroureter as well as hydronephrosis. Perinephric stranding is present. 2. Additional nonobstructing bilateral renal calculi are also identified. Dictated by: Jocelin Santoyo M.D. on 08/22/2020 at 15:58 Approved by: Jocelin Santoyo M.D. on 08/22/2020 at 16:02
[2020-08-22 15:35] LABS: Procalcitonin 0.26 ng/mL (<0.5)
[2020-08-22] MEDS: SODIUM CHLORIDE 0.9% 1,000 ML 1000 ML IV ×2 (15:56→17:34)
[2020-08-22] MEDS: HYDROMORPHONE 1 MG INJ IV ×4 (15:57→19:22)
[2020-08-22] MEDS: PIPERACILLIN/TAZO 4.5 GM in SODIUM CHLORIDE 0.9% 100 ML 200 ML IV (15:59)
[2020-08-22 16:26] LABS: Bacteria Urine None Seen
[2020-08-22 16:40] LABS: Culture Indicated Urine Specimen Cultured; RBC Urine 1-5/HPF (0-5/HPF); WBC Urine 5-10/HPF (0-5/HPF)
--- NOTE | 2020-08-22 16:54 | PC.NURSE ---
pt started with tremors. vss. temp. 98.3. requesting more pain medication. dr. moreno aware.
[2020-08-22] MEDS: TAMSULOSIN 0.4 MG CAPSULE PO (17:02)
[2020-08-22 17:23] LABS: Lactate (Lactic Acid) 1.9 mmol/L (0.7-2.1)
[2020-08-22] MEDS: SODIUM CHLORIDE 0.9% 1,000 ML 150 ML IV (19:27)
[2020-08-22 20:03] LABS: COVID19 -Nasal RAPID Negative (Negative)
== END 2020-08-22 21:37 | disposition short-term general hospital (02) ==
PROVIDERS: Emergency Provider Emergency Medicine; PCP Physician Assistant Medical
DX: N20.1 Calculus of ureter (principal); N13.4 Hydroureter; R00.0 Tachycardia, unspecified; R30.0 Dysuria; R11.0 Nausea; R79.89 Other specified abnormal findings of blood chemistry; B37.3 Candidiasis of vulva and vagina; Z20.822 Contact with and (suspected) exposure to COVID-19
CPT/HCPCS: 36415; 51798; 74177; 80053; 81003; 81015; 83605; 83690; 84145; 85025; 87077; 87086; 87635; 93005; 93010; 96361; 96365; 96375; 96376; 99285; C9803; J1170; J1885; J2405; J2543

== ENCOUNTER → 2020-10-31 14:35 | Outpatient (CLI) | payer OTHER, SELFPAY ==
--- NOTE | 2020-10-31 | DI.US.S_ITS ---
PROCEDURE: US RENAL COMPLETE INDICATIONS: URETER CALCULUS TECHNIQUE: Real-time scanning was performed of the kidneys and bladder, with image documentation. COMPARISON: [facility], CT, CT ABDOMEN PELVIS W CON, 08/22/2020, 15:54. [facility], US, US RENAL COMPLETE, 10/27/2018, 15:25. FINDINGS: Kidneys: Kidneys are normal in size. Right kidney measures 11.8 cm long; left kidney measures 12.3 cm long. Right renal cortical thickness is 1.2 cm; left renal cortical thickness is 1.6 cm. Renal cortical echotexture is normal. No hydronephrosis. There multiple nonobstructing left renal calcifications, largest measuring 8 mm. Bladder: Pre-void bladder volume is 106 mL. Post-void residual is 22 mL. Pre-void images demonstrate no intraluminal masses or stones. On pre-void images, bilateral ureteral jets are noted with color Doppler interrogation. (Of note, ureteral jets may not be detectable in up to 25% of cases due to insufficient differences in specific gravity between ureteral and bladder urine). Miscellaneous: No free pelvic fluid. Liver is diffusely increased in echogenicity incidentally noted. IMPRESSION: 1. Multiple nonobstructing left renal calcification; otherwise normal appearance of the kidneys bilaterally. 2. Increased hepatic echogenicity noted possibly related to hepatic steatosis but other sources of hepatocellular disease cannot be excluded. Recommend clinical correlation. Dictated by: Vladimir LEWIS Interpreted: Tristian Yadav MD on 10/31/2020 at 15:50 Approved by: Tristian Yadav M.D. on 10/31/2020 at 17:55
== END ==
PROVIDERS: PCP Physician Assistant Medical; Referring Provider Urology; Visit Provider Urology
DX: N20.0 Calculus of kidney (principal)
CPT/HCPCS: 76770

== ENCOUNTER → 2021-01-29 14:04 | Outpatient (CLI) | payer OTHER, SELFPAY ==
--- NOTE | 2021-01-29 14:05 | DI.MG.S_ITS ---
UNILATERAL RIGHT DIGITAL DIAGNOSTIC MAMMOGRAM 3D/2D SHORT-TERM FOLLOW-UP: 01/29/2021 CLINICAL: Short term follow up of the right breast. Comparison is made to exams dated: 07/17/2020 ultrasound, 07/17/2020 mammogram - [facility], 07/01/2020 mammogram, and 07/07/2018 mammogram - [facility]. There are scattered fibroglandular elements in right breast. There is an oval low density focal asymmetry with an indistinct margin in the right breast at 1 o'clock anterior depth. This is less prominent. No other significant masses or calcifications are seen in the breast. IMPRESSION: INCOMPLETE: NEEDS ADDITIONAL IMAGING EVALUATION The oval low density focal asymmetry in the right breast is indeterminate. An ultrasound is recommended. Ultrasound will be performed immediately following the current exam. This exam was interpreted at Station ID: [id number]. NOTE: For mammograms, a report in lay terms will be sent to the patient. Approximately 15% of breast malignancies will not be visualized mammographically. In the management of a palpable breast mass, a negative mammogram must not discourage biopsy of a clinically suspicious lesion. Electronically Signed By: Masood Ludwig M.D. ddp/:01/29/2021 14:25:08 copy to: Lilian ALMENDAREZ BI-RADS Category 0: Incomplete [id number]
--- NOTE | 2021-01-29 14:06 | DI.US.S_ITS ---
LIMITED ULTRASOUND OF RIGHT BREAST: 01/29/2021 CLINICAL: Patient returns today to evaluate two focal asymmetries in the right breast. No prior exams were available for comparison. Color flow and real-time ultrasound of the right breast 2 o'clock and 12 o'clock regions were performed on the areas of interest. There is a 0.6 cm x 0.3 cm x 0.3 cm oval cyst with a septated internal wall in the right breast at 2 o'clock middle depth 4 cm from the nipple. This oval cyst is hypoechoic with internal echoes. This abnormality is not significantly changed and likley correlates with mammography findings. Color flow imaging demonstrates that there is no vascularity present. The previously visualized complicated cyst in the right breast at 12 o'clock is no longer seen. IMPRESSION: PROBABLY BENIGN The 0.6 cm x 0.3 cm x 0.3 cm oval cyst in the right breast at 2 o'clock middle depth is consistent with a complicated cyst and is probably benign. Follow-up mammogram and ultrasound in 6 months are recommended. A follow-up mammogram and an ultrasound in 6 months are recommended to demonstrate stability. Patient will be due for mammography of the contralateral breast at that time. This exam was interpreted at Station ID: [id number]. Electronically Signed By: Masood Ludwig M.D. ddlauren/:01/29/2021 16:08:59 copy to: Lilian Flannery letter sent: Followup Recommended Ultrasound BI-RADS: 3 Probably benign
== END ==
PROVIDERS: PCP Physician Assistant Medical; Referring Provider Physician Assistant Medical; Visit Provider Physician Assistant Medical
DX: R92.8 Other abnormal and inconclusive findings on diagnostic imaging of breast (principal); N60.01 Solitary cyst of right breast
CPT/HCPCS: 76642; 77065; G0279

== ENCOUNTER → 2021-09-08 14:48 | Outpatient (CLI) | payer OTHER, SELFPAY ==
--- NOTE | 2021-09-08 14:52 | DI.CT.S_ITS ---
PROCEDURE: CT KIDNEY URETER BLADDER (KUB) INDICATIONS: Calculus of kidney TECHNIQUE: Axial sections were acquired from the lung bases to the pubic symphysis. Coronal and sagittal reformats were performed. For radiation dose reduction, the following was used: automated exposure control, adjustment of mA and/or kV according to patient size. COMPARISON: [facility], CT, CT KIDNEY URETER BLADDER (KUB), 08/12/2020, 6:11. FINDINGS: Image quality: Excellent. Lung bases: Unremarkable. Heart: No significant findings. URINARY: Right Kidney: Punctate nonobstructing calculi are present within the right kidney, the largest of which measures 3 mm in diameter. No hydronephrosis or perinephric fat stranding. Right Ureter: No hydroureter or ureterolithiasis. Left Kidney: Punctate nonobstructing calculi are present within the left kidney measuring 1-2 mm in diameter. No hydronephrosis or perinephric fat stranding. Left Ureter: No hydroureter or ureterolithiasis. Bladder: Normal wall thickness. No stones. ABDOMEN: Liver: Unremarkable. Gallbladder: Surgically absent. Biliary ducts: Unremarkable. Pancreas: Unremarkable. Spleen: Unremarkable. Adrenal Glands: Unremarkable. Stomach and Bowel: Stomach, small bowel loops, and colon are unremarkable. The appendix is not visualized; however there is no discrete right lower quadrant fluid or fat stranding to suggest acute appendicitis. Peritoneum: No abnormal intraperitoneal fluid. No free air. Ventral Wall: No hernia. Abdominal Nodes: No enlarged retroperitoneal or mesenteric lymph nodes. Vessels: Aorta and inferior vena cava are normal in size. PELVIS: Pelvic Organs: Unremarkable. Pelvic Nodes: Unremarkable. Miscellaneous: No inguinal hernias are seen. Bones: Unremarkable. IMPRESSION: 1. Bilateral nonobstructing nephrolithiasis. No hydronephrosis, hydroureter or ureterolithiasis. No perinephric fat stranding or bladder stones to suggest recently passed calculus. 2. No acute intra-abdominal findings. The appendix is not visualized; however there are no ancillary findings to suggest acute appendicitis. Dictated by: Lilian Ornelas M.D. on 09/08/2021 at 15:27 Approved by: Lilian Ornelas M.D. on 09/08/2021 at 15:29
== END ==
PROVIDERS: PCP Physician Assistant; Referring Provider Physician Assistant; Visit Provider Physician Assistant
DX: N20.0 Calculus of kidney (principal)
CPT/HCPCS: 74176

== ENCOUNTER → 2021-12-08 13:41 | Outpatient (CLI) | payer OTHER, SELFPAY ==
--- NOTE | 2021-12-08 13:43 | DI.CT.S_ITS ---
PROCEDURE: CT KIDNEY URETER BLADDER (KUB) INDICATIONS: LEFT FLANK PAIN/NEPHROLITHIASIS/HEMATURIA TECHNIQUE: Axial sections were acquired from the lung bases to the pubic symphysis. Coronal and sagittal reformats were performed. For radiation dose reduction, the following was used: automated exposure control, adjustment of mA and/or kV according to patient size. COMPARISON: [facility], CT, CT KIDNEY URETER BLADDER (KUB), 09/08/2021, 14:54. FINDINGS: Image quality: Excellent. Lung bases: Unremarkable. Heart: No significant findings. URINARY: Right Kidney: Punctate nonobstructing calculi in the right kidney, unchanged in size and number. Right Ureter: No hydroureter or ureterolithiasis. Left Kidney: Punctate nonobstructing calculi in the left kidney, unchanged in size and number. Left Ureter: No hydroureter or ureterolithiasis. Bladder: Normal wall thickness. No stones. ABDOMEN: Liver: Unremarkable. Gallbladder: Status post cholecystectomy. Biliary ducts: Unremarkable. Pancreas: Unremarkable. Spleen: Unremarkable. Adrenal Glands: Unremarkable. Stomach and Bowel: Stomach, small bowel loops, and colon are unremarkable. Peritoneum: No abnormal intraperitoneal fluid. No free air. Ventral Wall: No hernia. Abdominal Nodes: No enlarged retroperitoneal or mesenteric lymph nodes. Vessels: Aorta and inferior vena cava are normal in size. PELVIS: Pelvic Organs: Unremarkable. Pelvic Nodes: Unremarkable. Miscellaneous: No inguinal hernias are seen. Bones: Unremarkable. IMPRESSION: 1. Bilateral nonobstructing nephrolithiasis. No hydronephrosis or hydroureter. No change compared to the prior CT on 09/08/2021. 2. No acute abnormality of the abdomen or pelvis. Dictated by: Zurdo Craven M.D. on 12/08/2021 at 16:42 Approved by: Zurdo Craven M.D. on 12/08/2021 at 16:49
== END ==
PROVIDERS: PCP Family Medicine; Referring Provider Family Medicine; Visit Provider Family Medicine
DX: N20.0 Calculus of kidney (principal); R31.0 Gross hematuria; R10.9 Unspecified abdominal pain
CPT/HCPCS: 74176

== ENCOUNTER → 2022-08-29 10:56 | Outpatient (CLI) | payer OTHER, SELFPAY ==
--- NOTE | 2022-08-29 10:58 | DI.RAD.S_ITS ---
PROCEDURE: XR CHEST 2V INDICATIONS: Cough TECHNIQUE: 2 views of the chest were acquired. COMPARISON: [facility], CR, XR CHEST 1V, 08/13/2020, 15:47. FINDINGS: Surgical changes and devices: None. Lungs and pleura: Lungs are clear. No pleural effusions or pneumothorax. Mediastinum: Mediastinal contours are normal. Heart size is normal. Bones and chest wall: No suspicious bony abnormalities. Soft tissues appear unremarkable. IMPRESSION: No acute cardiopulmonary abnormality. Dictated by: Zurdo Craven M.D. on 08/29/2022 at 10:37 Approved by: Zurdo Craven M.D. on 08/29/2022 at 10:38
== END ==
PROVIDERS: PCP Family Medicine; Referring Provider Nurse Practitioner Family; Visit Provider Nurse Practitioner Family
DX: R05.9 Cough, unspecified (principal)
CPT/HCPCS: 71046

== ENCOUNTER → 2022-11-25 17:15 | Outpatient (CLI) | payer OTHER, MEDICAID, SELFPAY ==
--- NOTE | 2022-11-25 17:20 | DI.RAD.S_ITS ---
PROCEDURE: XR THORACIC SPINE 3V INDICATIONS: Thoracic back pain TECHNIQUE: 3 views of the thoracic spine were acquired. COMPARISON: None. FINDINGS: Bones: No fractures or dislocations. No suspicious bony lesions. 12 pairs of ribs are noted, and appear intact where visualized. Mild multilevel endplate sclerosis and spurring. Partially seen degenerative changes also seen in the cervical spine. Soft tissues: No paravertebral stripe thickening. Cholecystectomy clips. IMPRESSION: Mild multilevel thoracic spine disc degeneration. If there is high concern for further derangement, consider MRI evaluation. Dictated by: Vladimir Barahona [facility] Interpreted: Yong Blankenship MD on 11/25/2022 at 19:25 Transcribed by: JANES on 11/26/2022 at 8:08 Approved by: Yong Blankenship M.D. on 11/27/2022 at 8:19
== END ==
PROVIDERS: PCP Family Medicine; Referring Provider Anesthesiology; Visit Provider Anesthesiology
DX: M51.34 Other intervertebral disc degeneration, thoracic region (principal)
CPT/HCPCS: 72072

== ENCOUNTER 2022-12-08 15:29 | Outpatient (CLI) | payer OTHER, SELFPAY ==
[2022-12-08] VITALS (8 sets, daily range): BP systolic 125–143; BP diastolic 58–74; PULSE 79–91; RESP 19–22; TEMP 36.4; O2SAT 97–99
--- NOTE | 2022-12-08 15:31 | DI.RAD.S_ITS ---
PROCEDURE: PAIN C/T FACET INJ/BLK 1ST LIDIA INDICATIONS: SPONDYLOSIS COMPARISON: [facility], CR, XR THORACIC SPINE 3V, 11/25/2022, 17:27. FINDINGS: Fluoroscopic spot filming was performed to verify placement of spinal needles on both sides at the T7, T8, and T9 levels, as labeled on the films. Appropriate location of the needle tips was confirmed by injection of iodinated contrast. IMPRESSION: Intraprocedural examination demonstrating appropriate positions of the needles. Dictated by: Kenneth Vigil M.D. on 12/09/2022 at 9:27 Approved by: Kenneth Vigil M.D. on 12/09/2022 at 9:27
[2022-12-08] MEDS: MIDAZOLAM 2 MG/2 ML VIAL IV (15:57)
[2022-12-08] MEDS: BUPIVACAINE 0.5% (PF) 10 ML VIAL 5 ML INJ (16:04)
[2022-12-08] MEDS: iopamidoL 15 ML VIAL 3 ML INJ (16:04)
--- NOTE | 2022-12-08 16:44 | P.PCN_ITS ---
Date/Time/Diagnoses Date of procedure: 12/08/22 Time of procedure: 16:00 Procedure Notes Physician: Denny Baltazar Total Fluoroscopy time (seconds): 40 Total sedation minutes: 22 Procedure in detail & Post-procedure care: Bilateral T7, 8, 9 Medial Branch Blocks Indications: Criss is presenting for treatment of thoracic spondylosis with thoracic back pain. Preoperative diagnosis: Thoracic spondylosis Postoperative diagnosis: Same Pre-procedure History: Patient demonstrates today moderate to severe non- radicular back pain without neurologic deficit aggravated by hyperextension yes Patient today has tenderness over the suspected joint(s) yes History of post-traumatic injury? no Hypertrophic arthropathy yes Back pain associated with suspected motion segment instability, hypermobility or pseudoarthrosis no Pre-testing pain score (VAS): 6/10 Focused Examination: Ax3 Mood and affect are normal Vital Signs: VSS ASA: 2 Consent: Following review of allergies and potential side effects/complications, including, but not necessarily limited to, infection, allergic reaction, local tissue breakdown, stroke, temporary or permanent nerve injury, paralysis, and possible , the patient indicated that they understood and agreed to proceed.? An informed consent document was signed by the patient, witnessed by a nurse and placed in the patient's chart.? Additionally, other treatment options including medications and physical therapy were reviewed with the patient. All questions were answered. Site was then marked. Anesthesia: After review of previous anesthetic history and IV conscious sedation, the patient was deemed safe to proceed with today's procedure with IV conscious sedation. IV sedation was accomplished with midazolam 2 mg administered by the RN after order by Dr. Baltazar. Sedation was titrated to patient comfort during the course of the procedure. Patient remained responsive to all verbal commands. Position: Prone Monitoring: NIBP, Pulse oximetry, 3 lead EKG Needle used: 25 ga 3.5 inch spinal needle Contrast: Isovue 300M Injectate: 0.5% bupivacaine 1 mL per site Procedure: The patient was brought into the procedure room and positioned into the prone position. Skin was prepped with a Chloraprep solution, allowed to air dry, and then draped in sterile fashion.? The right T8-9 and T9-10 facet joints were visually identified with fluoroscopy. Lidocaine 1% was used to anesthetize the skin over each target destination with a 25ga needle. A 25 ga, 3.5 inch sp inal needle was advanced to the location of the medial branch at right T8, 9, 10 using intermittent fluoroscopy in the AP view. Isovue 300M contrast 0.2ml was injected at each level outlining the medial borders for each level in the AP and lateral views. There was no evidence of vascular or intrathecal uptake. The above injectate was slowly injected at each target destination. The left T8-9 and T9-10 facet joints were visually identified with fluoroscopy. Lidocaine 1% was used to anesthetize the skin over each target destination with a 25ga needle. A 25 ga, 3.5 inch spinal needle was advanced to the location of the medial branch at left T8, 9, 10 using intermittent fluoroscopy in the AP view. Isovue 300M contrast 0.2ml was injected at each level outlining the medial borders for each level in the AP and lateral views. There was no evidence of vascular or intrathecal uptake. The above injectate was slowly injected at each target destination. At the end of the procedure the needles were withdrawn and Band-Aids were applied for a dressing. At the end of the procedure the needles were withdrawn and Band-Aids were applied for a dressing. Post Procedure: Patient was taken to the recovery and monitored. The patient was provided a Pain Log to continue to record the patient's response to the target- specific procedure prior to the patient's follow-up visit with the referring physician. Patient was stable upon discharge. Detailed post procedure instructions were provided. Patient was asked to call in the event of worsening pain, fever, weakness, numbness or bladder or bowel incontinence. Postoperatively, today patient demonstrates the following changes with hyperextension and with tenderness over the suspected joint(s). Provacative testing using the Graham's facet loading test Right side Left side Directly before the block ?VAS (0-10) = 6/10 VAS (0-10) = 6/10 5 minutes after the block VAS (0-10) = 2/10 VAS (0-10) = 2/10 Percentage relief obtained with this diagnostic block 67% 67% Any improved physical functioning directly after the blocks? Range of motion Based on the medial branches blocked today, if the patient meets insurance criteria for radiofrequency, the treatment should result in the denervation of the bilateral T8-9 and T9-10 facet joint nerves. We would expect to denervate a total of 4 facets during the radiofrequency ablation.
== END 2022-12-08 16:34 | disposition home or self-care (01) ==
PROVIDERS: PCP Family Medicine; Referring Provider Anesthesiology; Visit Provider Anesthesiology
DX: M47.814 Spondylosis without myelopathy or radiculopathy, thoracic region (principal)
CPT/HCPCS: 64490; 64491; 99152; J2250

== ENCOUNTER 2022-12-20 13:03 | Outpatient (CLI) | payer OTHER, SELFPAY ==
[2022-12-20] VITALS (9 sets, daily range): BP systolic 128–149; BP diastolic 66–79; PULSE 67–86; RESP 15–21; TEMP 36.4; O2SAT 97–99
--- NOTE | 2022-12-20 13:05 | DI.RAD.S_ITS ---
PROCEDURE: PAIN C/T FACET INJ/BLK 1ST LIDIA INDICATIONS: THORACIC SPONDYLOSIS COMPARISON: [facility], , PAIN C/T FACET INJ/BLK 1ST LIDIA, 12/08/2022, 15:57. FINDINGS: Fluoroscopic spot filming was performed to verify placement of spinal needles at the bilateral T7, T8 and T9 level(s), as labeled on the films. Appropriate location of the needle tips was confirmed by injection of iodinated contrast. IMPRESSION: Intra procedural examination demonstrating appropriate positions of the needles. Dictated by: Abe Larose M.D. on 12/20/2022 at 15:31 Approved by: Abe Larose M.D. on 12/20/2022 at 15:33
[2022-12-20] MEDS: MIDAZOLAM 2 MG/2 ML VIAL IV (13:41)
[2022-12-20] MEDS: iopamidoL 15 ML VIAL 3 ML INJ (13:47)
[2022-12-20] MEDS: LIDOCAINE 2% INJ SDV 5ML 10 ML INJ (13:47)
--- NOTE | 2022-12-20 16:52 | P.PCN_ITS ---
Date/Time/Diagnoses Date of procedure: 12/20/22 Time of procedure: 13:30 Procedure Notes Physician: Denny Baltazar Total Fluoroscopy time (seconds): 25 Total sedation minutes: 14 Procedure in detail & Post-procedure care: Bilateral T7, 8, 9 Medial Branch Blocks Indications: Criss is presenting for treatment of thoracic spondylosis with thoracic back pain. Preoperative diagnosis: Thoracic spondylosis Postoperative diagnosis: Same Pre-procedure History: Patient demonstrates today moderate to severe non- radicular back pain without neurologic deficit aggravated by hyperextension yes Patient today has tenderness over the suspected joint(s) yes History of post-traumatic injury? no Hypertrophic arthropathy yes Back pain associated with suspected motion segment instability, hypermobility or pseudoarthrosis no Pre-testing pain score (VAS): 7/10 Focused Examination: Ax3 Mood and affect are normal Vital Signs: VSS ASA: 2 Consent: Following review of allergies and potential side effects/complications, including, but not necessarily limited to, infection, allergic reaction, local tissue breakdown, stroke, temporary or permanent nerve injury, paralysis, and possible , the patient indicated that they understood and agreed to proceed.? An informed consent document was signed by the patient, witnessed by a nurse and placed in the patient's chart.? Additionally, other treatment options including medications and physical therapy were reviewed with the patient. All questions were answered. Site was then marked. Anesthesia: After review of previous anesthetic history and IV conscious sedation, the patient was deemed safe to proceed with today's procedure with IV conscious sedation. IV sedation was accomplished with midazolam 2 mg administered by the RN after order by Dr. Baltazar. Sedation was titrated to patient comfort during the course of the procedure. Patient remained responsive to all verbal commands. Position: Prone Monitoring: NIBP, Pulse oximetry, 3 lead EKG Needle used: 25 ga 3.5 inch spinal needle Contrast: Isovue 300M Injectate: 2% lidocaine 1 mL per site Procedure: The patient was brought into the procedure room and positioned into the prone position. Skin was prepped with a Chloraprep solution, allowed to air dry, and then draped in sterile fashion.? The right T8-9 and T9-10 facet joints were visually identified with fluoroscopy. Lidocaine 1% was used to anesthetize the skin over each target destination with a 25ga needle. A 25 ga, 3.5 inch spinal needle was advanced to the location of the medial branch at right T8, 9, 10 using intermittent fluoroscopy in the AP view. Isovue 300M contrast 0.2ml was injected at each level outlining the medial borders for each level in the AP and lateral views. There was no evidence of vascular or intrathecal uptake. The above injectate was slowly injected at each target destination. The left T8-9 and T9-10 facet joints were visually identified with fluoroscopy. Lidocaine 1% was used to anesthetize the skin over each target destination with a 25ga needle. A 25 ga, 3.5 inch spinal needle was advanced to the location of the medial branch at left T8, 9, 10 using intermittent fluoroscopy in the AP view. Isovue 300M contrast 0.2ml was injected at each level outlining the medial borders for each level in the AP and lateral views. There was no evidence of vascular or intrathecal uptake. The above injectate was slowly injected at each target destination. At the end of the procedure the needles were withdrawn and Band-Aids were applied for a dressing. At the end of the procedure the needles were withdrawn and Band-Aids were applied for a dressing. Post Procedure: Patient was taken to the recovery and monitored. The patient was provided a Pain Log to continue to record the patient's response to the target- specific procedure prior to the patient's follow-up visit with the referring physician. Patient was stable upon discharge. Detailed post procedure instructions were provided. Patient was asked to call in the event of worsening pain, fever, weakness, numbness or bladder or bowel incontinence. Based on the medial branches blocked today, if the patient meets insurance criteria for radiofrequency, the treatment should result in the denervation of the bilateral T8-9 and T9-10 facet joint nerves. We would expect to denervate a total of 4 facets during the radiofrequency ablation.
== END 2022-12-20 14:19 | disposition home or self-care (01) ==
LOC: RAD 13:04
PROVIDERS: PCP Nurse Practitioner Family; Referring Provider Anesthesiology; Visit Provider Anesthesiology
DX: M47.814 Spondylosis without myelopathy or radiculopathy, thoracic region (principal)
CPT/HCPCS: 64490; 64491; 99152; J2250

== ENCOUNTER → 2022-12-23 14:52 | Outpatient (CLI) | payer OTHER, SELFPAY | PROVIDERS: PCP Nurse Practitioner Family; Referring Provider Family Medicine; Visit Provider Family Medicine | DX: Z23 Encounter for immunization (principal) | CPT/HCPCS: 90471; 90686 ==

== ENCOUNTER 2023-01-19 12:56 | Outpatient (CLI) | payer OTHER, SELFPAY ==
[2023-01-19] VITALS (12 sets, daily range): BP systolic 129–152; BP diastolic 59–76; PULSE 67–85; RESP 16–21; TEMP 36.2; O2SAT 97–100
--- NOTE | 2023-01-19 12:58 | DI.RAD.S_ITS ---
PROCEDURE: PAIN C/T MEDIAL N RFA BILAT INDICATIONS: THORACIC SPONDYLOSIS COMPARISON: None. FINDINGS: Fluoroscopic spot filming was performed to verify placement of spinal needles at the right T7, 8, 9 level(s), as labeled on the films. Appropriate location(s) of the needle tip(s) was confirmed by injection of iodinated contrast. IMPRESSION: Intraoperative fluoroscopic views as above. Dictated by: Zurdo Craven M.D. on 01/19/2023 at 15:23 Approved by: Zurdo Craven M.D. on 01/19/2023 at 15:24
[2023-01-19] MEDS: MIDAZOLAM 2 MG/2 ML VIAL IV (13:44)
[2023-01-19] MEDS: DEXAMETHASONE 10 MG/ML VIAL INJ (13:48)
[2023-01-19] MEDS: BUPIVACAINE 0.5% (PF) 10 ML VIAL 5 ML INJ (13:48)
[2023-01-19] MEDS: LIDOCAINE 2% INJ MDV 20ML 5 ML INJ (13:49)
[2023-01-19] MEDS: MIDAZOLAM 2 MG/2 ML VIAL 1 MG IV ×2 (13:54→14:04)
--- NOTE | 2023-01-19 14:47 | P.PCN_ITS ---
Date/Time/Diagnoses Date of procedure: 01/19/23 Time of procedure: 13:30 Procedure Notes Physician: Denny Baltazar Total Fluoroscopy time (seconds): 30 Total sedation minutes: 45 Procedure in detail & Post-procedure care: Bilateral T7, 8, 9 Thoracic Medial Branch Radio Frequency Ablation Indications: Criss presents for treatment of thoracic spondylosis with back pain. Preoperative diagnosis: Thoracic spondylosis Postoperative diagnosis: Same Focused Examination: Ax3 Mood and affect are normal Vital Signs: VSS ASA: 2 Consent: Following review of allergies and potential side effects/complications, including, but not necessarily limited to, infection, allergic reaction, local tissue breakdown, stroke, temporary or permanent nerve injury, paralysis, and possible , the patient indicated that they understood and agreed to pro ceed.? An informed consent document was signed by the patient, witnessed by a nurse and placed in the patient's chart.? Additionally, other treatment options including medications and physical therapy were reviewed with the patient. All questions were answered. Site was then marked. Position: Prone Monitoring: NIBP, Pulse oximetry, 3 lead EKG Needle used: 20 guage, 100 mm, 10 mm active tip Anesthesia: Local with IV sedation. After review of previous anesthetic history and IV conscious sedation, the patient was deemed safe to proceed with today's procedure with IV conscious sedation. IV sedation was accomplished with midazolam 4 mg administered by the RN after order by Dr. Baltazar. Sedation was titrated to patient comfort during the course of the procedure. Patient remained responsive to all verbal commands. Procedure: The patient was brought into the procedure room and positioned into the prone position. Skin was prepped with a Chloraprep solution, allowed to air dry, and then draped in sterile fashion.? The right T8-9 and T9-10 facet joints were visually identified with fluoroscopy. Lidocaine 1% was used to anesthetize the skin over each target destination with a 25ga needle. A 20 ga, 100 mm RFA needle with a 10 mm active tip was advanced to the location of the medial branch on the right T8, 9, 10 transverse process using intermittent fluoroscopy in the AP view with 5? contralateral oblique tilt and magnification x2. AP and lateral radiographs were taken to confirm proper needle placement. No paresthesias were noted. The stylet was removed and the radiofrequency probe was inserted through the cannula. Each level was individually tested.? Motor stimulation up to 2V elicited multifidus twitching. There was no motor stimulation of the chest. After negative aspiration, 1ml of 2% lidocaine was injected at each of the levels and radiofrequency denervation carried out using 80 degrees Celsius for 90 seconds. The needles were then rotated 90 degrees and a second ablation was performed at 80 degrees Celsius for 90 seconds. Next, the left T8-9 and T9-10 facet joints were visually identified with fluoroscopy. Lidocaine 1% was used to anesthetize the skin over each target destination with a 25ga needle. A 20 ga, 100 mm RFA needle with a 10 mm active tip was advanced to the location of the medial branch on the left T8, 9, 10 transverse process using intermittent fluoroscopy in the AP view with 5? contralateral oblique tilt and magnification x2. AP and lateral radiographs were taken to confirm proper needle placement. No paresthesias were noted. The stylet was removed and the radiofrequency probe was inserted through the cannula. Each level was individually tested.? Motor stimulation up to 2V elicited multifidus twitching. There was no motor stimulation of the chest. After negative aspiration, 1ml of 2% lidocaine was injected at each of the levels and radiofrequency denervation carried out using 80 degrees Celsius for 90 seconds. The needles were then rotated 90 degrees and a second ablation was performed at 80 degrees Celsius for 90 seconds. After ablation, a mixture of 10 mg dexamethasone with 0.5% bupivacaine 5 mL was injected in equal amounts among the sites (1 mL per site). At the end of the procedure the needles were withdrawn and Band-Aids were applied for a dressing. This procedure is expected to denervate the bilateral T8-9 and T9-10 facet joints. Post Procedure: Patient was taken to the recovery and monitored. The patient was provided a Pain Log to continue to record the patient's response to the target- specific procedure prior to the patient's follow-up visit with the referring physician. Patient was stable upon discharge. Detailed post procedure instructions were provided. Patient was asked to call in the event of worsening pain, fever, weakness, numbness or bladder or bowel incontinence. Complications: Non
== END 2023-01-19 14:48 | disposition home or self-care (01) ==
LOC: RAD 12:58
PROVIDERS: PCP Nurse Practitioner Family; Referring Provider Anesthesiology; Visit Provider Anesthesiology
DX: M47.814 Spondylosis without myelopathy or radiculopathy, thoracic region (principal)
CPT/HCPCS: 64633; 64634; 99152; 99153; J1100; J2250

== ENCOUNTER → 2023-02-04 07:35 | Outpatient (CLI) | payer OTHER, MEDICAID, SELFPAY ==
[2023-02-04 08:30] LABS: Hemoglobin A1C% w Est Avg Glu 6.5 % (4.0-6.0)
[2023-02-04 08:51] LABS: Alanine Aminotransferase 32 IU/L (<35); Albumin 4.2 g/dL (3.5-5.0); Albumin Globulin Ratio 1.6 (1.0-2.8); Alkaline Phosphatase 84 U/L (38-126); Aspartate Aminotransferase 33 IU/L (14-36); BUN Creatinine Ratio 16.2 (6-22); Bilirubin Total 0.6 mg/dL (0.2-1.3); Blood Urea Nitrogen 11 mg/dL (7-17); Calcium 9.8 mg/dL (8.4-10.2); Carbon Dioxide 22 mmol/L (22-32); Chloride 104 mmol/L (98-107); Cholesterol 121 mg/dL (140-199); Estimated Glomerular Filt Rate > 60 mL/min (>60); Globulin 2.6 g/dL (1.7-4.1); Glucose 120 mg/dL (70-100); HDL Cholesterol 44 mg/dL (40-60); HEMOLYSIS < 15 (0-50); LDL Cholesterol Calculated 29 mg/dL (<100); Potassium 4.3 mmol/L (3.4-5.1); Sodium 136 mmol/L (137-145); Total Protein 6.8 g/dL (6.3-8.2); Triglycerides 239 mg/dL (35-150)
[2023-02-04 09:00] LABS: Vitamin D 25 Hydroxy (D3) 34.8 ng/mL (30.0-100.0)
== END ==
PROVIDERS: PCP Nurse Practitioner Family; Referring Provider Nurse Practitioner; Visit Provider Nurse Practitioner
DX: E11.8 Type 2 diabetes mellitus with unspecified complications (principal); E78.2 Mixed hyperlipidemia; E11.9 Type 2 diabetes mellitus without complications; E78.5 Hyperlipidemia, unspecified; E55.9 Vitamin D deficiency, unspecified
CPT/HCPCS: 36415; 80053; 80061; 82306; 83036

== ENCOUNTER → 2023-03-14 10:10 | Outpatient (CLI) | payer OTHER, MEDICAID, SELFPAY ==
--- NOTE | 2023-03-14 | DI.US.S_ITS ---
LIMITED ULTRASOUND OF RIGHT BREAST: 03/14/2023 CLINICAL: Late 6 month follow-up of cyst. Comparison is made to exams dated: 07/31/2021 ultrasound, 07/31/2021 mammogram - [facility], and 01/29/2021 ultrasound - [facility]. Color flow ultrasound of the right breast 2 o'clock region was performed. Aguilar scale images of the real-time examination were reviewed. There is a 0.4 cm x 0.2 cm x 0.2 cm oval cyst in the right breast at 2 o'clock middle depth 4 cm from the nipple. This oval cyst displays an echogenic boundary. This abnormality has decreased in size. Color flow imaging demonstrates that there is no vascularity present. IMPRESSION: BENIGN The 0.4 cm cyst in the right breast is consistent with a complicated cyst, has demontrated two years of stability and is therefore benign. Return to annual mammogram screening schedule is recommended. Findings and recommendations were conveyed to the patient at time of exam. This exam was interpreted at Station ID: [id number]. Electronically Signed By: Ashley brush/:03/14/2023 11:49:28 copy to: Lilian Flannery letter sent: Normal Exam Ultrasound BI-RADS: 2 Benign
--- NOTE | 2023-03-14 | DI.US.S_ITS ---
ULTRASOUND OF LEFT BREAST: 03/14/2023 CLINICAL: Intermittent pain in left breast. Abnormal mammogram. Comparison is made to exams dated: 03/14/2023 mammogram - [facility], 07/31/2021 mammogram - [facility], and 07/01/2020 mammogram - [facility]. Color flow ultrasound of the left breast was performed. Aguilar scale images of the real-time examination were reviewed. There is a 0.6 cm x 0.6 cm x 0.4 cm oval cyst with a septated internal wall in the left breast at 5 o'clock anterior depth 5 cm from the nipple. This oval cyst is anechoic with posterior acoustic enhancement. This correlates with mammography findings. Color flow imaging demonstrates that there is no vascularity present. Specifically, no finding to correspond to the patient's 2:00 left breast possible asymmetry seen in the CC view only. Also, there is no sonographic abnormality to correspond to the patient's left breast 3:00 pain. IMPRESSION: PROBABLY BENIGN The 0.6 cm cyst in the left breast most likely is a complicated cyst and is probably benign. There is no abnormality seen in the left breast to correspond with the mammography finding at 2 o'clock which is consistent with fibrosis. There is no abnormality seen in the left breast to correspond with the pain at 3 o'clock. A follow-up left mammogram and an ultrasound in 6 months is recommended to demonstrate stability of mammogram findings and ultrasound finding of probable complicated cyst. Findings and recommendations were conveyed to the patient at time of exam. This exam was interpreted at Station ID: [id number]. Electronically Signed By: Ashley brush/:03/14/2023 11:53:30 copy to: Lilian Flannery letter sent: Followup Recommended Ultrasound BI-RADS: 3 Probably benign
--- NOTE | 2023-03-14 | DI.MG.S_ITS ---
BILATERAL DIGITAL DIAGNOSTIC MAMMOGRAM 3D/2D SHORT-TERM FOLLOW-UP: 03/14/2023 CLINICAL: Late short term follow up right breast. Left breast pain. Comparison is made to exams dated: 07/31/2021 mammogram - [facility], 01/29/2021 mammogram, 07/17/2020 mammogram - [facility], and 07/01/2020 mammogram - [facility]. There are scattered areas of fibroglandular density in both breasts (category b / 25%-50% glandular tissue). There is an incidental possible oval equal density asymmetry with an indistinct margin in the left breast posterior depth lateral region seen on the craniocaudal view only. There also is an incidental new 9 mm oval asymmetry with a circumscribed margin in the left breast at 6 o'clock anterior depth. No other significant masses, calcifications, or other findings are seen in either breast. Specifically, no finding to correspond to the patient's 2:00 left breast pain. IMPRESSION: INCOMPLETE: NEEDS ADDITIONAL IMAGING EVALUATION There is no abnormality seen in the left breast to correspond with the pain at 2 o'clock. Ultrasound is recommended for full evaluation of this area. This was performed immediately following this exam. The possible oval equal density asymmetry in the left breast posterior depth lateral region seen on the craniocaudal view only resembles fibroglandular tissue or fibrosis but remains indeterminate. An ultrasound is recommended. This was performed immediately following this exam. The new 9 mm oval asymmetry in the left breast at 6 o'clock anterior depth most likely is a lymph node and is indeterminate. An ultrasound is recommended. This was performed immediately following this exam. Right breast US was also performed to follow a previously seen US only finding. Based on the Tyrer Cuzick model (a risk assessment model) the patient's lifetime risk is 6.6% and her 10 year risk is 1.5%. According to the ACR, ACS, and NCCN guidelines, an annual breast MRI exam along with mammogram is recommended if the patient's lifetime risk is 20% or greater. This exam was interpreted at Station ID: [id number]. NOTE: For mammograms, a report in lay terms will be sent to the patient. Approximately 15% of breast malignancies will not be visualized mammographically. In the management of a palpable breast mass, a negative mammogram must not discourage biopsy of a clinically suspicious lesion. Electronically Signed By: Ashley brush/:03/14/2023 11:36:51 copy to: Lilian Flannery ACR BI-RADS Category 0: Incomplete [id number]
--- NOTE | 2023-03-14 10:12 | DI.MRI.S_ITS ---
PROCEDURE: MR HEAD/BRAIN WO/W CON INDICATIONS: FACIAL WEAKNESS TECHNIQUE: Noncontrast axial T1 spin echo, axial T2 fast spin echo, sagittal and axial FLAIR, coronal T2 fast spin echo, axial gradient echo, axial diffusion and ADC through the brain. After the administration of contrast, axial and coronal and sagittal 3D VIBE or T1 spin echo with fat saturation through the brain. COMPARISON: None. FINDINGS: Image quality: Excellent. CSF Spaces: Basal cisterns are patent. No extra-axial fluid collections. Ventricles are normal in size and shape. Brain: No midline shift. No intracranial bleeds or masses. No abnormal intracranial enhancement. The brainstem appears normal. Diffusion-weighted images demonstrate no acute infarct. No chronic ischemic insults. Normal intravascular flow voids are present. Skull and face: Calvarial marrow is normal in signal. Orbits appear normal. Sinuses: Sinuses and mastoids appear clear. IMPRESSION: No findings to explain patient's symptoms. No acute intracranial abnormalities. No evidence of a demyelinating process. Dictated by: Abe Larose M.D. on 03/14/2023 at 15:04 Approved by: Abe Larose M.D. on 03/14/2023 at 15:07
--- NOTE | 2023-03-14 10:12 | DI.MRI.S_ITS ---
PROCEDURE: MR CERVICAL SPINE WO/W CON INDICATIONS: FACIAL WEAKNESS TECHNIQUE: Noncontrast sagittal T1 spin echo and T2 fast spin echo, sagittal STIR, foraminal oblique sagittal T2 fast spin echo, axial gradient echo or T2 fast spin echo through the cervical spine. After the administration of contrast, axial and sagittal T1 spin echo with fat saturation through the cervical spine. COMPARISON: None. FINDINGS: Image quality: Excellent. Alignment and curvature: Straightening of the normal cervical lordosis. Marrow: Marrow is normal in overall signal, without suspicious enhancement. Spinal cord: Visualized spinal cord has normal size and signal. No cerebellar tonsillar herniation. No abnormal intramedullary enhancement. Paraspinous soft tissues: No paravertebral masses or suspicious enhancement. C2-3: Disc desiccation. No central canal stenosis. Facet and uncovertebral arthropathy. Mild left and no right neural foraminal stenosis. C3-4: Disc desiccation height loss. Posterior disc osteophyte complex. Mild central canal stenosis. Facet and uncovertebral arthropathy. Severe left and moderate right neural foraminal stenosis. C4-5: Disc desiccation height loss. Posterior disc osteophyte complex. Moderate central canal stenosis. Facet and uncovertebral arthropathy. Severe bilateral neural foraminal stenosis. C5-6: Disc desiccation height loss. Posterior disc osteophyte complex. Mild central canal stenosis. Facet and uncovertebral arthropathy. Severe left and moderate right neural foraminal stenosis. C6-7: Disc desiccation height loss. Posterior disc osteophyte complex. Mild central canal stenosis. Facet and uncovertebral arthropathy. Moderate left and severe right neural foraminal stenosis. C7-T1: No central canal stenosis or neural foraminal stenosis. IMPRESSION: 1. The cervical spinal cord is normal in size and signal intensity. 2. Multilevel degenerative changes of the cervical spine. There is moderate central canal stenosis C4-C5. Mild multilevel central canal stenosis at other levels. 3. Severe neural foraminal stenosis on the left at C3-C4, bilaterally at C4-C5, on the left at C5-C6 and on the right at C6-C7. Dictated by: Abe Larose M.D. on 03/14/2023 at 14:40 Approved by: Abe Larose M.D. on 03/14/2023 at 15:04
== END ==
LOC: MAMMO 10:10
PROVIDERS: PCP Nurse Practitioner Family; Referring Provider Nurse Practitioner Family; Visit Provider Nurse Practitioner Family
DX: M47.812 Spondylosis without myelopathy or radiculopathy, cervical region (principal); M48.02 Spinal stenosis, cervical region; R92.2 Inconclusive mammogram; R92.323 Mammographic fibroglandular density, bilateral breasts; N60.02 Solitary cyst of left breast; N60.01 Solitary cyst of right breast; N64.4 Mastodynia; G51.9 Disorder of facial nerve, unspecified; R29.810 Facial weakness; R20.2 Paresthesia of skin; R53.1 Weakness
CPT/HCPCS: 70553; 72141; 76642; 77066; G0279; A9579

== ENCOUNTER → 2023-05-12 09:19 | Outpatient (CLI) | payer OTHER, MEDICAID, SELFPAY ==
[2023-05-11 08:27] VITALS: BMI 44.6
--- NOTE | 2023-05-12 09:20 | DI.RAD.S_ITS ---
PROCEDURE: XR LUMBAR SPINE MIN 4V INDICATIONS: low back pain TECHNIQUE: 5 views of the lumbar spine were acquired, including bilateral oblique views. COMPARISON: None. FINDINGS: Bones: 5 nonrib-bearing vertebrae are present. Anterolisthesis of L4 on L5 measuring 0.7 cm. . No vertebral body compression fractures. No suspicious bony lesions. Soft tissues: Overlying bowel gas pattern is normal. No suspicious soft tissue calcifications. Cholecystectomy clips. Possible small left kidney stone. Oblique images: No pars defects. IMPRESSION: Grade 1 anterolisthesis of L4 on L5. Possible small left kidney stone. Dictated by: Guerrero Arreola M.D. on 05/12/2023 at 15:27 Approved by: Guerrero Arreola M.D. on 05/12/2023 at 15:29
== END ==
PROVIDERS: PCP Nurse Practitioner Family; Referring Provider Anesthesiology; Visit Provider Anesthesiology
DX: M43.16 Spondylolisthesis, lumbar region (principal); M54.50 Low back pain, unspecified; G89.29 Other chronic pain; E11.9 Type 2 diabetes mellitus without complications; E55.9 Vitamin D deficiency, unspecified
CPT/HCPCS: 36415; 72110; 80053; 82306; 83036

== ENCOUNTER → 2023-05-12 16:34 | Outpatient (CLI) | payer OTHER, MEDICAID, SELFPAY ==
[2023-05-11 08:27] VITALS: BMI 44.6
[2023-05-12 18:09] LABS: Hemoglobin A1C% w Est Avg Glu 5.9 % (4.0-6.0)
[2023-05-12 18:35] LABS: Alanine Aminotransferase 36 IU/L (<35); Albumin 4.4 g/dL (3.5-5.0); Albumin Globulin Ratio 1.5 (1.0-2.8); Alkaline Phosphatase 83 U/L (38-126); Aspartate Aminotransferase 30 IU/L (14-36); BUN Creatinine Ratio 13.2 (6-22); Bilirubin Total 0.4 mg/dL (0.2-1.3); Blood Urea Nitrogen 10 mg/dL (7-17); Calcium 9.8 mg/dL (8.4-10.2); Carbon Dioxide 24 mmol/L (22-32); Chloride 104 mmol/L (98-107); Estimated Glomerular Filt Rate > 60 mL/min (>60); Globulin 2.9 g/dL (1.7-4.1); Glucose 92 mg/dL (70-100); HEMOLYSIS < 15 (0-50); Potassium 3.9 mmol/L (3.4-5.1); Sodium 138 mmol/L (137-145); Total Protein 7.3 g/dL (6.3-8.2)
[2023-05-12 18:54] LABS: Vitamin D 25 Hydroxy (D3) 36.4 ng/mL (30.0-100.0)
== END ==
PROVIDERS: PCP Nurse Practitioner Family; Referring Provider Nurse Practitioner Family; Visit Provider Nurse Practitioner Family
DX: E55.9 Vitamin D deficiency, unspecified (principal); E11.9 Type 2 diabetes mellitus without complications
CPT/HCPCS: 36415; 80053; 82306; 83036

== ENCOUNTER 2023-05-25 15:31 | Outpatient (CLI) | payer OTHER, MEDICAID, SELFPAY ==
[2023-05-11 08:27] VITALS: BMI 44.6
[2023-05-25] VITALS (8 sets, daily range): BP systolic 117–155; BP diastolic 61–81; PULSE 83–103; RESP 12–20; TEMP 36.6; O2SAT 98–100
--- NOTE | 2023-05-25 16:01 | DI.RAD.S_ITS ---
PROCEDURE: PAIN C/T FACET INJ/BLK 1ST LIDIA INDICATIONS: SPONDYLOSIS COMPARISON: CR, XR THORACIC SPINE 3V, 11/25/2022, 17:27. FINDINGS: Fluoroscopic spot filming was performed to verify placement of spinal needles at the thoracic level(s), as labeled on the films. Appropriate location(s) of the needle tip(s) was confirmed by injection of iodinated contrast. IMPRESSION: Fluoroscopy guidance for pain management. Dictated by: Rabia Porter M.D. on 05/26/2023 at 9:29 Approved by: Rabia Porter M.D. on 05/26/2023 at 9:30
[2023-05-25] MEDS: MIDAZOLAM 2 MG/2 ML VIAL IV (16:05)
[2023-05-25] MEDS: BUPIVACAINE 0.5% (PF) 10 ML VIAL 5 ML INJ (16:15)
[2023-05-25] MEDS: iopamidoL 15 ML VIAL 3 ML INJ (16:15)
--- NOTE | 2023-05-25 16:33 | P.PCN_ITS ---
Date/Time/Diagnoses Date of procedure: 05/25/23 Time of procedure: 16:00 Procedure Notes Physician: Denny Baltazar Total Fluoroscopy time (seconds): 28 Total sedation minutes: 21 Procedure in detail & Post-procedure care: Bilateral T4, 5, 6 Medial Branch Blocks Indications: Criss is presenting for treatment of thoracic spondylosis with thoracic back pain. Preoperative diagnosis: Thoracic spondylosis Postoperative diagnosis: Same Pre-procedure History: Patient demonstrates today moderate to severe non- radicular back pain without neurologic deficit aggravated by hyperextension yes Patient today has tenderness over the suspected joint(s) yes History of post-traumatic injury? no Hypertrophic arthropathy yes Back pain associated with suspected motion segment instability, hypermobility or pseudoarthrosis no Focused Examination: Ax3 Mood and affect are normal Vital Signs: VSS ASA: 2 Consent: Following review of allergies and potential side effects/complications, including, but not necessarily limited to, infection, allergic reaction, local tissue breakdown, stroke, temporary or permanent nerve injury, paralysis, and possible , the patient indicated that they understood and agreed to proceed.? An informed consent document was signed by the patient, witnessed by a nurse and placed in the patient's chart.? Additionally, other treatment options including medications and physical therapy were reviewed with the patient. All questions were answered. Site was then marked. Anesthesia: After review of previous anesthetic history and IV conscious sedation, the patient was deemed safe to proceed with today's procedure with IV conscious sedation. IV sedation was accomplished with midazolam 2 mg administered by the RN after order by Dr. Baltazar. Sedation was titrated to patient comfort during the course of the procedure. Patient remained responsive to all verbal commands. Position: Prone Monitoring: NIBP, Pulse oximetry, 3 lead EKG Needle used: 25 ga 3.5 inch spinal needle Contrast: Isovue 300M Injectate: 0.5% bupivacaine 1 mL per site Procedure: The patient was brought into the procedure room and positioned into the prone position. Skin was prepped with a Chloraprep solution, allowed to air dry, and then draped in sterile fashion.? The right T5-6 and T6-7 facet joints were visually identified with fluoroscopy. Lidocaine 1% was used to anesthetize the skin over each target destination with a 25ga needle. A 25 ga, 3.5 inch spinal needle was advanced to the location of the medial branch at right T5, 6, 7 using intermittent fluoroscopy in the AP view. Isovue 300M contrast 0.2ml was injected at each level outlining the medial borders for each level in the AP and lateral views. There was no evidence of vascular or intrathecal uptake. The above injectate was slowly injected at each target destination. The left T5-6 and T6-7 facet joints were visually identified with fluoroscopy. Lidocaine 1% was used to anesthetize the skin over each target destination with a 25ga needle. A 25 ga, 3.5 inch spinal needle was advanced to the location of the medial branch at left T5, 6, 7 using intermittent fluoroscopy in the AP view. Isovue 300M contrast 0.2ml was injected at each level outlining the medial borders for each level in the AP and lateral views. There was no evidence of vascular or intrathecal uptake. The above injectate was slowly injected at each target destination. At the end of the procedure the needles were withdrawn and Band-Aids were applied for a dressing. At the end of the procedure the needles were withdrawn and Band-Aids were applied for a dressing. Post Procedure: Patient was taken to the recovery and monitored. The patient was provided a Pain Log to continue to record the patient's response to the target- specific procedure prior to the patient's follow-up visit with the referring physician. Patient was stable upon discharge. Detailed post procedure instructions were provided. Patient was asked to call in the event of worsening pain, fever, weakness, numbness or bladder or bowel incontinence. Based on the medial branches blocked today, if the patient meets insurance criteria for radiofrequency, the treatment should result in the denervation of the bilateral T5-6 and T6-7 facet joint nerves. We would expect to denervate a total of 4 facets during the radiofrequency ablation.
--- NOTE | 2023-05-26 13:46 | PC.NURSE ---
Post Procedure Call: Spoke with patient at 1344. No questions or concerns currently. Encouraged to contact office if needed.
== END 2023-05-25 16:46 | disposition home or self-care (01) ==
LOC: RAD 15:31
PROVIDERS: PCP Nurse Practitioner Family; Referring Provider Anesthesiology; Visit Provider Anesthesiology
DX: M47.814 Spondylosis without myelopathy or radiculopathy, thoracic region (principal)
CPT/HCPCS: 64490; 64491; 99152; J2250

== ENCOUNTER 2023-06-08 14:28 | Outpatient (CLI) | payer OTHER, MEDICAID, SELFPAY ==
[2023-05-11 08:27] VITALS: BMI 44.6
[2023-06-08] VITALS (8 sets, daily range): BP systolic 113–127; BP diastolic 60–82; PULSE 81–88; RESP 11–21; TEMP 36.2; O2SAT 98–100
--- NOTE | 2023-06-08 14:51 | DI.RAD.S_ITS ---
PROCEDURE: PAIN C/T FACET INJ/BLK 1ST L INDICATIONS: SPONDYLOSIS COMPARISON: None. FINDINGS: Fluoroscopic spot filming was performed to verify placement of spinal needles at the bilateral T4, T5 and T6 level(s), as labeled on the films. Appropriate location(s) of the needle tip(s) was confirmed by injection of iodinated contrast. IMPRESSION: Intra procedural examination demonstrating appropriate positions of the needles. Dictated by: Abe Larose M.D. on 06/08/2023 at 16:27 Approved by: Abe Larose M.D. on 06/08/2023 at 16:27
[2023-06-08] MEDS: MIDAZOLAM 2 MG/2 ML VIAL IV (15:27)
[2023-06-08] MEDS: iopamidoL 15 ML VIAL 3 ML INJ (15:36)
[2023-06-08] MEDS: LIDOCAINE 2% INJ SDV 5ML 10 ML INJ (15:37)
--- NOTE | 2023-06-08 15:54 | P.PCN_ITS ---
Date/Time/Diagnoses Date of procedure: 06/08/23 Time of procedure: 15:00 Procedure Notes Physician: Denny Baltazar Total Fluoroscopy time (seconds): 22 Total sedation minutes: 21 Procedure in detail & Post-procedure care: Bilateral T5, 6, 7 Medial Branch Blocks targeting the bilateral T6-7 and T7-8 facet joints Indications: Criss is presenting for treatment of thoracic spondylosis with thoracic back pain. Preoperative diagnosis: Thoracic spondylosis Postoperative diagnosis: Same Pre-procedure History: Patient demonstrates today moderate to severe non- radicular back pain without neurologic deficit aggravated by hyperextension yes Patient today has tenderness over the suspected joint(s) yes History of post-traumatic injury? no Hypertrophic arthropathy yes Back pain associated with suspected motion segment instability, hypermobility or pseudoarthrosis no Focused Examination: Ax3 Mood and affect are normal Vital Signs: VSS ASA: 2 Consent: Following review of allergies and potential side effects/complications, including, but not necessarily limited to, infection, allergic reaction, local tissue breakdown, stroke, temporary or permanent nerve injury, paralysis, and possible , the patient indicated that they understood and agreed to proceed.? An informed consent document was signed by the patient, witnessed by a nurse and placed in the patient's chart.? Additionally, other treatment options including medications and physical therapy were reviewed with the patient. All questions were answered. Site was then marked. Anesthesia: After review of previous anesthetic history and IV conscious sedation, the patient was deemed safe to proceed with today's procedure with IV conscious sedation. IV sedation was accomplished with midazolam 2 mg administered by the RN after order by Dr. Baltazar. Sedation was titrated to patient comfort during the course of the procedure. Patient remained responsive to all verbal commands. Position: Prone Monitoring: NIBP, Pulse oximetry, 3 lead EKG Needle used: 25 ga, 3.5 in spinal needle Contrast: Isovue 300M Injectate: 2% lidocaine 1 mL per site Procedure: The patient was brought into the procedure room and positioned into the prone position. Skin was prepped with a Chloraprep solution, allowed to air dry, and then draped in sterile fashion.? The right T6-7 and T7-8 facet joints were visually identified with fluoroscopy. Lidocaine 1% was used to anesthetize the skin over each target destination with a 25ga needle. A 25 ga, 3.5 inch spinal needle was advanced to the location of the medial branch at right T6, 7, 8 using intermittent fluoroscopy in the AP view. Isovue 300M contrast 0.2ml was injected at each level outlining the medial borders for each level in the AP and lateral views. There was no evidence of vascular or intrathecal uptake. The above injectate was slowly injected at each target destination. The left T6-7 and T7-8 facet joints were visually identified with fluoroscopy. Lidocaine 1% was used to anesthetize the skin over each target destination with a 25ga needle. A 25 ga, 3.5 inch spinal needle was advanced to the location of the medial branch at left T6, 7, 8 using intermittent fluoroscopy in the AP view. Isovue 300M contrast 0.2ml was injected at each level outlining the medial borders for each level in the AP and lateral views. There was no evidence of vascular or intrathecal uptake. The above injectate was slowly injected at each target destination. At the end of the procedure the needles were withdrawn and Band-Aids were applied for a dressing. At the end of the procedure the needles were withdrawn and Band-Aids were applied for a dressing. Post Procedure: Patient was taken to the recovery and monitored. The patient was provided a Pain Log to continue to record the patient's response to the target- specific procedure prior to the patient's follow-up visit with the referring physician. Patient was stable upon discharge. Detailed post procedure instructions were provided. Patient was asked to call in the event of worsening pain, fever, weakness, numbness or bladder or bowel incontinence. Based on the medial branches blocked today, if the patient meets insurance criteria for radiofrequency, the treatment should result in the denervation of the bilateral T6-7 and T7-8 facet joint nerves. We would expect to denervate a total of 4 facets during the radiofrequency ablation.
== END 2023-06-08 16:06 | disposition home or self-care (01) ==
PROVIDERS: PCP Nurse Practitioner Family; Referring Provider Anesthesiology; Visit Provider Anesthesiology
DX: M47.814 Spondylosis without myelopathy or radiculopathy, thoracic region (principal)
CPT/HCPCS: 64490; 64491; 99152; J2250

== ENCOUNTER → 2023-06-21 14:54 | Outpatient (CLI) | payer OTHER, MEDICAID, SELFPAY ==
[2023-05-11 08:27] VITALS: BMI 44.6
--- NOTE | 2023-06-21 14:56 | DI.RAD.S_ITS ---
PROCEDURE: XR HAND LT MIN 3V INDICATIONS: Left hand pain TECHNIQUE: 3 views of the hand(s) acquired. COMPARISON: None. FINDINGS: Bones: No fractures or dislocations. [id number] osteoarthritic changes throughout left hand and wrist joints are seen more notably involving 1st CMC joint and 2nd through 5th DIP joints. Carpal bones are normally aligned. No suspicious bony lesions. Soft tissues: No suspicious soft tissue calcifications. IMPRESSION: [id number] left hand and wrist joint osteoarthritis. No acute fracture or dislocation. No gross soft tissue abnormalities. Dictated by: Ricky Garcia M.D. on 06/21/2023 at 17:19 Approved by: Ricky Garcia M.D. on 06/21/2023 at 17:22
== END ==
PROVIDERS: PCP Nurse Practitioner Family; Referring Provider Anesthesiology; Visit Provider Anesthesiology
DX: M18.12 Unilateral primary osteoarthritis of first carpometacarpal joint, left hand (principal); M19.032 Primary osteoarthritis, left wrist; M19.042 Primary osteoarthritis, left hand; M79.642 Pain in left hand
CPT/HCPCS: 73130

== ENCOUNTER 2023-07-07 14:42 | Emergency (ER) | payer OTHER, MEDICAID, SELFPAY ==
[2023-05-11 08:27] VITALS: BMI 44.6
[2023-07-07 14:55] VITALS: BP 151/79; PULSE 94; RESP 16; TEMP 36.6; O2SAT 99; BMI 37.3
[2023-07-07 15:33] LABS: Add Manual Diff / Slide Review NO; Basophils Absolute Auto 100 /uL (0-100); Basophils Percent Auto 0.6 % (0-2); Eosinophils Absolute Auto 300 /uL (0-450); Eosinophils Percent Auto 2.5 % (2-4); Hematocrit 42.7 % (36-46); Hemoglobin 14.4 g/dL (12.0-16.0); Lymphocytes Absolute Auto 3000 /uL (1100-4500); Lymphocytes Percent Auto 28.3 % (25-40); Mean Corpuscular HGB Conc 33.6 % (30-36); Mean Corpuscular Hemoglobin 29.3 PG (26-34); Mean Corpuscular Volume 87.1 fL (80-100); Monocytes Absolute Auto 700 /uL (0-900); Monocytes Percent Auto 6.4 % (3-14); Neutrophils Absolute Auto 6600 /uL (1500-7000); Neutrophils Percent Auto 62.2 % (50-75); Platelet Count 328 X10^3/uL (150-400); Red Cell Distribution Width 13.7 % (11.6-14.8); White Blood Cell Count 10.7 X10^3/uL (4.5-11.0)
[2023-07-07 15:56] LABS: Alanine Aminotransferase 32 IU/L (<35); Albumin Globulin Ratio 1.8 (1.0-2.8); Alkaline Phosphatase 92 U/L (38-126); Aspartate Aminotransferase 32 IU/L (14-36); BUN Creatinine Ratio 13.9 (6-22); Bilirubin Total 0.7 mg/dL (0.2-1.3); Blood Urea Nitrogen 10 mg/dL (7-17); Calcium 9.7 mg/dL (8.4-10.2); Carbon Dioxide 18 mmol/L (22-32); Chloride 106 mmol/L (98-107); Estimated Glomerular Filt Rate > 60 mL/min (>60); Globulin 2.8 g/dL (1.7-4.1); Glucose 95 mg/dL (70-100); HEMOLYSIS 24 (0-50); Lipase 217 U/L (23-300); Potassium 4.2 mmol/L (3.4-5.1); Sodium 137 mmol/L (137-145); Total Protein 7.8 g/dL (6.3-8.2)
--- NOTE | 2023-07-07 16:17 | ED.ABDPAIN ---
HPI - Abdominal Pain General Chief Complaint: Abdominal Pain Stated Complaint: bowel obstruction, sent by PCP Time Seen by Provider: 07/07/23 16:12 Source: patient Mode of arrival: Ambulatory History of Present Illness HPI narrative: 53-year-old female type 2 diabetic who has been on Ozempic for several years. Patient presents with complaint of no bowel movement for about 10 days except for an episode of loose diarrhea 24 hours ago. Patient states she has not been passing flatus for the last day. She states she went out to eat she has had a decreased appetite had very little intake and started vomiting at the restaurant. She describes abdominal pain sort of generalized worse lower but also little bit on the right. She has noted some flank pain on the 1 side. Patient states she has not had any new medication changes. She has had prior abdominal surgeries including a complete hysterectomy and cholecystectomy in she is scheduled for colonoscopies every 2 years secondary to family history. She has not had any concerning changes in the past. Patient states allergic to Zosyn and hydrocodone. No tobacco, occasional alcohol, no recreational drugs. Related Data Home Medications Medication Instructions Recorded Confirmed duloxetine 60 mg capsule,delayed 60 mg PO DAILY 09/25/18 06/28/23 release (Cymbalta) omeprazole 20 mg capsule,delayed 20 mg PO DAILY 11/15/22 06/28/23 release rosuvastatin 10 mg tablet 10 mg PO DAILY 11/15/22 06/28/23 semaglutide 2 mg/dose (8 mg/3 mL) 2 mg SUBCUT QWEEK 11/15/22 06/28/23 subcutaneous pen injector (Ozempic) estradiol 0.5 mg tablet 0.5 mg PO DAILY 12/21/22 06/28/23 glycopyrrolate 1 mg tablet 1 mg PO BID 12/21/22 06/28/23 lisinopril 40 mg tablet 40 mg PO DAILY 12/21/22 06/28/23 metformin 500 mg tablet,extended 1,000 mg PO BID 12/21/22 06/28/23 release 24 hr ondansetron 4 mg disintegrating 2 mg PO Q6-8H PRN 12/21/22 06/28/23 tablet naltrexone 50 mg tablet 50 mg PO DAILY 04/25/23 06/28/23 bupropion HCl 100 mg tablet,12 hr 100 mg PO BID 05/31/23 06/28/23 sustained-release Previous Rx's Medication Instructions Recorded lidocaine 5 % topical patch 1 patch topical DAILY #30 ea 05/12/23 oxycodone 5 mg tablet 5 mg PO TID PRN pain #10 tabs 06/13/23 sulfamethoxazole 800 1 tab PO Q12H #14 tabs 07/07/23 mg-trimethoprim 160 mg tablet (Bactrim DS) Allergies Allergy/AdvReac Type Severity Reaction Status Date / Time piperacillin [From Zosyn] Allergy Verified 07/07/23 14:55 tazobactam [From Zosyn] Allergy Verified 07/07/23 14:55 hydrocodone [From Vicodin] AdvReac Mild Nausea/Vomi Verified 06/28/23 08:31 ting Review of Systems Review of Systems ROS Unobtainable: All systems reviewed & are unremarkable except as noted in HPI and below Patient History Medical History Arthritis of carpometacarpal (CMC) joint of left thumb Left hand pain Low back pain Thoracic radiculopathy Thoracic spondylosis Thoracic back pain Myofascial pain Sleep apnea (~2017) Allergies (~2006) Irritable bowel syndrome (~1994) GERD (gastroesophageal reflux disease) (~2003) Kidney stones (~1998) Endometriosis (~1993) MEGHA (stress urinary incontinence, female) (~2015) Dyspareunia Surgical History S/P laparoscopic supracervical hysterectomy (~10/16/18) Anesthesia [place] teeth removed History of tonsillectomy History of shoulder surgery Hx laparoscopic cholecystectomy (~2017) Hx of laparoscopy Family History Father Cancer Diabetes mellitus Hypertension Mother Stroke Sister Cancer Grandfather Cancer Social History household members: spouse Smoking Status: Never smoker alcohol intake: never Smoking Status: Never smoker alcohol intake frequency: holidays/special occasions only Substance Use Type: does not use Exam Narrative Exam Narrative: GENERAL: Alert and oriented x three, female in moderate distress. HEENT: Head normocephalic, atraumatic, EOMI, pupils reactive, face symmetric, moist mucous membranes NECK: Supple, full range of motion CARDIOVASCULAR: Regular rate and rhythm without murmurs, rubs or gallops. RESPIRATORY: Breath sounds equal bilaterally, no wheezes rales or rhonchi. ABDOMEN: Soft, generalized tenderness. Patient does appear somewhat distended but soft. Decreased bowel sounds all 4 quadrants. No guarding or rebound, rigidity, no mass : No CVA tenderness EXTREMITIES: Normal range of motion, no clubbing or edema. Neurovascularly intact NEUROLOGICAL: Cranial nerves II through XII grossly intact. Moving all extremities SKIN: Warm, dry, no petechiae, no rashes or lesions. Initial Vital Signs Initial Vital Signs: Vital Signs Temperature 97.9 F 07/07/23 14:55 Pulse Rate 94 H 07/07/23 14:55 Respiratory Rate 16 07/07/23 14:55 Blood Pressure 151/79 H 07/07/23 14:55 Pulse Oximetry 99 07/07/23 14:55 Oxygen Delivery Method Room Air 07/07/23 14:55 Course Orders Ordered: ED Orders 07/07/23 14:58 EKG-12 Lead Stat 07/07/23 15:13 Complete Blood Count AUTO DIFF Stat Comprehensive Metabolic Panel Stat Lipase Stat 07/07/23 16:16 CT abdomen pelvis w con Stat 07/07/23 16:38 Urine Culture Stat Urine Microscopic Stat Discontinued Medications Diphenhydramine HCl (Diphenhydramine 50 Mg/Ml Vial) 25 mg IV NOW ONE Stop: 07/07/23 16:38 Last Admin: 07/07/23 16:40 Dose: 25 mg Documented By: MARCO ANTONIO Sodium Chloride (Normal Saline 0.9%) 1,000 mls @ 1,000 mls/hr IV BOLUS ONE Stop: 07/07/23 17:15 Last Infusion: 07/07/23 17:45 Dose: Infused Documented By: Admin: 07/07/23 16:27 Dose: 1,000 mls/hr Documented By: MARCO ANTONIO Ketorolac Tromethamine (Ketorolac 30 Mg/Ml Vial) 15 mg IV NOW ONE Stop: 07/07/23 16:17 Last Admin: 07/07/23 16:27 Dose: 15 mg Documented By: MARCO ANTONIO Methylprednisolone (Methylprednisolone 125 Mg/2 Ml Vial) 125 mg IV NOW ONE Stop: 07/07/23 16:38 Last Admin: 07/07/23 16:40 Dose: 125 mg Documented By: MARCO ANTONIO Ondansetron HCl (Ondansetron 4 Mg Odt) 4 mg PO NOW PRN PRN Reason: Nausea And Vomiting Ondansetron HCl (Ondansetron 4 Mg/2 Ml Inj) 4 mg IV NOW PRN PRN Reason: Nausea And Vomiting Ondansetron HCl (Ondansetron 4 Mg/2 Ml Inj) 4 mg IV NOW ONE Stop: 07/07/23 16:17 Last Admin: 07/07/23 16:27 Dose: 4 mg Documented By: MARCO ANTONIO Trimethoprim/Sulfamethoxazole (Trimeth/Sulfa 160/800 (Ds) Tablet) 1 tab PO NOW ONE Stop: 07/07/23 18:37 Last Admin: 07/07/23 18:45 Dose: 1 tab Documented By: MARCO ANTONIO Vital Signs Vital signs: Vital Signs - 8 hr 07/07/23 14:55 07/07/23 17:44 07/07/23 18:00 Temperature 97.9 F Pulse Rate 94 H 86 Respiratory Rate 16 20 Blood Pressure 151/79 H 159/75 H Pulse Oximetry 99 99 Oxygen Delivery Method Room Air Room Air 07/07/23 18:00 07/07/23 18:30 07/07/23 18:31 Temperature Pulse Rate 94 H 84 84 Respiratory Rate 21 16 21 Blood Pressure Pulse Oximetry 98 96 96 Oxygen Delivery Method 07/07/23 18:31 07/07/23 18:51 Temperature Pulse Rate 87 Respiratory Rate 20 Blood Pressure 146/64 H 146/64 H Pulse Oximetry 97 Oxygen Delivery Method Room Air MDM - Abdominal Pain Lab Data 07/07/23 15:13 07/07/23 15:13 Labs: Lab Results 07/07/23 07/07/23 Range/Units 15:13 16:38 WBC 10.7 (4.5-11.0) X10^3/uL RBC 4.90 (4.0-5.2) X10^6/uL Hgb 14.4 (12.0-16.0) g/dL Hct 42.7 (36-46) % MCV 87.1 (80-100) fL MCH 29.3 (26-34) PG MCHC 33.6 (30-36) % RDW 13.7 (11.6-14.8) % Plt Count 328 (150-400) X10^3/uL Neut % (Auto) 62.2 (50-75) % Lymph % (Auto) 28.3 (25-40) % [place] % (Auto) 6.4 (3-14) % Eos % (Auto) 2.5 (2-4) % Baso % (Auto) 0.6 (0-2) % Neut # (Auto) 6600 (3555-0381) /uL Lymph # (Auto) 3000 (6403-2692) /uL [place] # (Auto) 700 (0-900) /uL Eos # (Auto) 300 (0-450) /uL Baso # (Auto) 100 (0-100) /uL Sodium 137 (137-145) mmol/L Potassium 4.2 (3.4-5.1) mmol/L Chloride 106 (98-107) mmol/L Carbon Dioxide 18 L (22-32) mmol/L BUN 10 (7-17) mg/dL Creatinine 0.72 (0.52-1.04) mg/dL Estimated GFR > 60 (>60) mL/min BUN/Creatinine Ratio 13.9 (6-22) Glucose 95 (70-100) mg/dL Calcium 9.7 (8.4-10.2) mg/dL Total Bilirubin 0.7 (0.2-1.3) mg/dL AST 32 (14-36) IU/L ALT 32 (<35) IU/L Alkaline Phosphatase 92 (38-126) U/L Total Protein 7.8 (6.3-8.2) g/dL Albumin 5.0 (3.5-5.0) g/dL Globulin 2.8 (1.7-4.1) g/dL Albumin/Globulin Ratio 1.8 (1.0-2.8) Lipase 217 (23-300) U/L Urine RBC None seen (0-5/HPF) Urine WBC 5-10/hpf H (0-5/HPF) Ur Squamous Epith Cells 1-5 /hpf (0-5/HPF) Urine Bacteria Many (>30) H (None) Ur Culture Indicated? Specimen cultured Vol Urine Centrifuged 10ml (spun) Point of care testing: Point of Care Testing Test Results Negative Urine Dip Bedside Urine Glucose Negative Bedside Urine Bilirubin - Negative Bedside Urine Ketone - Negative Urine Specific [place] 1.010 Bedside Urine Occult Blood - Negative Bedside Urine pH 6.0 Bedside Urine Protein - Negative Bedside Urine Urobilinogen - Negative Bedside Urine Nitrite - Negative Bedside Urine Leukocytes +/- [address] scan - abdomen/pelvis: Radiologist's Impression: Close Abdomen/Pelvis CT (Signed) Jocelin Santoyo - 07/07/23 Hand X-Ray (Signed) GarciaRicky - 06/21/23 Hand X-Ray (Cancelled) 06/21/23 Facet Joint Injection X-Ray (Signed) Abe Larose - 06/08/23 Facet Joint Injection X-Ray (Signed) Rabia Porter - 05/25/23 Lumbar Spine X-Ray (Signed) Call,Guerrero - 05/12/23 Cervical Spine MRI (Signed) Felix Larosey - 03/14/23 Brain MRI (Signed) Larose,Abe - 03/14/23 Mammogram Diagnostic (Signed) Ashley Angeles - 03/14/23 Breast Ultrasound (Signed) Ashley Angeles - 03/14/23 Breast Ultrasound (Signed) Ashley Angeles - 03/14/23 Cervical/Thoracic Injection (Signed) Zurdo Craven - 01/19/23 Facet Joint Injection X-Ray (Signed) Abe Larose - 12/20/22 Facet Joint Injection X-Ray (Signed) Kenneth Vigil - 12/08/22 Thoracic Spine X-Ray (Signed) Yong Blankenship - 11/25/22 Chest X-Ray (Signed) Zurdo Craven - 08/29/22 Abdomen/Pelvis CT (Signed) Zurdo Craevn - 12/08/21 Abdomen/Pelvis CT (Signed) Lilian Ornelas - 09/08/21 Breast Ultrasound (Signed) Masood Ludwig - 01/29/21 Mammogram Diagnostic (Signed) Masood Ludwig - 01/29/21 Renal Ultrasound (Signed) Tristian Yadav - 10/31/20 Abdomen/Pelvis CT (Signed) Jocelin Santoyo - 08/22/20 Chest X-Ray (Signed) Jocelin Santoyo - 08/13/20 Abdomen/Pelvis CT (Signed) Jose Elias Porter - 08/12/20 Mammogram, Additional Views (Signed) Guerrero Arreola - 07/17/20 Breast Ultrasound (Signed) Call,Guerrero - 07/17/20 Thoracic Spine MRI (Signed) Manjinder Rodriguez - 05/17/20 Cervical Spine MRI (Signed) Aelxandro Lam - 01/29/20 Renal Ultrasound (Signed) Lilian Ornelas - 10/27/18 Launch?Image [address] [address] [address] Scan Report Signed Patient: Criss Moseley MR#: [id number] : 1970 Acct:[id number] Age/Sex: 53 / F Date of Service: 07/07/23 Loc: ED Accession Number: [id number] Procedure: CT abdomen pelvis w con Ordering Provider: Rosetta Childress D.O. PROCEDURE: CT ABDOMEN PELVIS W CON INDICATIONS: concern for obstruction, hyst, noel, no BM/flat, +vomit TECHNIQUE: After the administration of intravenous contrast, axial sections acquired from the lung bases to the pubic symphysis. Coronal and sagittal reformats were performed. For radiation dose reduction, the following was used: automated exposure control, adjustment of mA and/or kV according to patient size. COMPARISON: CT, CT KIDNEY URETER BLADDER (KUB), 12/08/2021, 13:50. [facility], CT, CT ABDOMEN PELVIS W CON, 08/22/2020, 15:54. FINDINGS: Image quality: Diagnostic. Lower Chest: No significant findings. ABDOMEN: Liver: Liver measures 18.7 cm with steatosis. Low-attenuation focus measuring 11 mm in the superior right hepatic lobe series 2, image 17 has Hounsfield units greater than expected for a simple cyst. This is not clearly identified on prior exam. Gallbladder: Removed. Biliary ducts: No biliary dilation. Pancreas: No ductal dilation. Spleen: Size is within normal limits. Adrenal Glands: No adrenal nodules. Kidneys and Ureters: No hydronephrosis. No solid mass. No complex renal cystic lesion which requires follow up. 3 left and 1 right nonobstructing renal calculi the largest measuring 4 mm on the right. Stomach and Bowel: Normal colonic caliber, without significant wall thickening. Mild scattered stool. Peritoneum: No abnormal intraperitoneal fluid. No free air. Ventral Wall: No significant ventral hernia. Abdominal Nodes: No retroperitoneal or mesenteric adenopathy by size criteria. Vessels: Aorta and inferior vena cava are normal in size. PELVIS: Pelvic Organs: Unremarkable. Bladder: No bladder wall thickening, accounting for underdistention. Non dependent air is present. Pelvic Nodes: No enlarged lymph nodes. Miscellaneous: No inguinal hernias are seen. Bones: No aggressive osseous abnormality. IMPRESSION: Mild scattered stool without obstruction. Nonobstructing bilateral renal calculi. Hepatic steatosis. Indeterminate hepatic lesion, not well seen on prior exams. This could represent a complex cyst or potentially hemangioma. Other etiologies cannot be definitively excluded. Nonemergent follow-up with ultrasound may be obtained. Dictated by: Jocelin Santoyo M.D. on 07/07/2023 at 16:42 Approved by: Jocelin Santoyo M.D. on 07/07/2023 at 16:47 MDM Narrative Medical decision making narrative: 53-year-old female with symptoms that sound somewhat obstructive has had 1 diarrhea like stool in the last 10 days decreased flatus, she has had vomiting after having minimal intake. Patient has had prior abdominal surgeries. She is generalized abdominal pain distention and decreased bowel sounds. Patient's white count is 10.7 hemoglobin is 14 platelets are 328. Sodium is 137 potassium is 4 2 chloride 106 with a CO2 18 BUN 10 creatinine 0.72 glucose 95- LFTs and normal lipase. Patient has had a full hysterectomy in the past. Urine sample + for leukocyte esterase. 5-10 white cells, many bacteria, specimen was sent for culture. 1-[address] abdomen pelvis to evaluate for obstruction. Immediately after CT patient's bases bright red with some patchy redness on her chest. She does not feel itchy she does not feel short of breath she still has pain she has not received any other medications. Unclear if rosa contrast allergy or other but it was not present just before she went for CT. Redness and symptoms resolved after Solu-Medrol and Benadryl. Suspect patient does have some sort of iodine contrast mediated reaction CT shows no obstructive process, nonobstructing bilateral renal calculi, hepatic steatosis. Patient does have not indeterminate hepatic lesions could be complex 6 versus hemangioma nonemergent ultrasound could be obtained. She would all this with the patient. She is aware. Patient was given fluids, Toradol and Zofran she does feel improved. Patient would like to return home. Reviewed her findings urine does show changes could have possible pyelonephritis she does have some flank pain, nausea or vomiting afebrile does not appear septic we will cover with oral antibiotic after discussion patient while culture is pending. She has oral Zofran at home. She is comfortable with Tylenol and ibuprofen for pain Discharge Plan Departure Patient Disposition: Home Clinical Impression: Pyelonephritis Instructions: DI for Abdominal Pain-Adult Activity Restrictions/Additional Instructions: Please follow up for recheck if your symptoms are not improving. Your urine shows possible infection, it has been sent for culture but a prescription was sent to [facility] in [place]. Your imaging does show some hepatic steatosis, some hepatic lesions which could be possible complex cyst or hemangioma this can be followed up with ultrasound as outpatient. There are some kidney stones in both kidneys. Please return for fevers, worsening abdominal pain, persistent vomiting, lightheadedness or passing out, black or bloody stools or other new or concerning changes Prescriptions: New sulfamethoxazole-trimethoprim [Bactrim DS] 800-160 mg tablet 1 tab PO Q12H Qty: 14 0RF No Action duloxetine [Cymbalta] 60 mg capsule,delayed release(DR/EC) 60 mg PO DAILY metformin 500 mg tablet extended release 24 hr 1,000 mg PO BID ondansetron 4 mg tablet,disintegrating 2 mg PO Q6-8H PRN glycopyrrolate 1 mg tablet 1 mg PO BID lisinopril 40 mg tablet 40 mg PO DAILY estradiol 0.5 mg tablet 0.5 mg PO DAILY bupropion HCl 100 mg tablet sustained-release 12 hr 100 mg PO BID oxycodone 5 mg tablet 5 mg PO TID PRN (Reason: pain) Qty: 10 0RF Rx Instructions: Take 1 tab, 1 hour prior to procedure then 1 tab t.i.d. as needed for pain after procedure omeprazole 20 mg capsule,delayed release(DR/EC) 20 mg PO DAILY rosuvastatin 10 mg tablet 10 mg PO DAILY Ozempic 2 mg/dose (8 mg/3 mL) pen injector 2 mg SUBCUT QWEEK naltrexone 50 mg tablet 50 mg PO DAILY lidocaine 5 % adhesive patch,medicated 1 patch topical DAILY Qty: 30 1RF Rx Instructions: leave on most painful area for 12 hrs Referrals: Lisa Regan RN [Primary Care Provider] - Stand Alone Forms: Patient Portal/API
[2023-07-07] MEDS: ONDANSETRON 4 MG/2 ML INJ IV (16:27)
[2023-07-07] MEDS: KETOROLAC 30 MG/ML VIAL 15 MG IV (16:27)
[2023-07-07] MEDS: SODIUM CHLORIDE 0.9% 1,000 ML 1000 ML IV (16:27)
[2023-07-07] MEDS: methylPREDNISolone 125 MG/2 ML VIAL IV (16:40)
[2023-07-07] MEDS: diphenhydrAMINE 50 MG/ML VIAL 25 MG IV (16:40)
[2023-07-07 17:02] LABS: Bacteria Urine Many (>30); Culture Indicated Urine Specimen Cultured; RBC Urine None Seen (0-5/HPF); Squamous Epithelial Cell Urine 1-5 /HPF (0-5/HPF); Urine Volume 10mL (spun); WBC Urine 5-10/HPF (0-5/HPF)
[2023-07-07 17:44] VITALS: PULSE 86; RESP 20; O2SAT 99
[2023-07-07 18:00] VITALS: BP 159/75; PULSE 94; RESP 21; O2SAT 98
[2023-07-07 18:30] VITALS: PULSE 84; RESP 16; O2SAT 96
[2023-07-07 18:31] VITALS: BP 146/64; PULSE 84; RESP 21; O2SAT 96
[2023-07-07] MEDS: TRIMETH/SULFA 160/800 (DS) TABLET 1 TAB PO (18:45)
[2023-07-07 18:51] VITALS: BP 146/64; PULSE 87; RESP 20; O2SAT 97
== END 2023-07-07 18:55 | disposition home or self-care (01) ==
PROVIDERS: Emergency Provider Emergency Medicine; PCP Nurse Practitioner Family
DX: N12 Tubulo-interstitial nephritis, not specified as acute or chronic (principal); Z79.899 Other long term (current) drug therapy
CPT/HCPCS: 36415; 74177; 80053; 81003; 81015; 81025; 83690; 85025; 87077; 87086; 87186; 96361; 96374; 96375; 99284; J1200; J1885; J2405; J2919; Q9967

== ENCOUNTER → 2024-04-26 13:26 | Outpatient (CLI) | payer OTHER, SELFPAY ==
[2023-05-11 08:27] VITALS: BMI 44.6
--- NOTE | 2024-04-26 13:29 | DI.MG.S_ITS ---
BILATERAL DIGITAL DIAGNOSTIC MAMMOGRAM 3D/2D SHORT-TERM FOLLOW-UP: 04/26/2024 CLINICAL: Short term follow up of the left breast, due for bilateral imaging. Comparison is made to exams dated: 03/14/2023 mammogram - [facility], 07/31/2021 mammogram - [facility], and 07/01/2020 mammogram - [facility]. There are scattered areas of fibroglandular density (category b / 25%-50% glandular tissue). There is a 9 mm oval asymmetry with a circumscribed margin in the left breast at 5 o'clock anterior depth. This is not significantly changed. No other significant masses, calcifications, or other findings are seen in either breast. IMPRESSION: INCOMPLETE: NEED ADDITIONAL IMAGING EVALUATION The 9 mm oval asymmetry in the left breast most likely is a cyst or a lymph node and is indeterminate. An ultrasound is recommended for further evaluation and is scheduled to immediately follow this examination. There is no abnormality seen in the left breast to correspond with the palpable abnormality at 2 o'clock in the posterior depth, however, ultrasound is recommended for further evaluation and is scheduled to immediately follow this examination. Based on the Tyrer Cuzick model (a risk assessment model) the patient's lifetime risk is 6.5% and her 10 year risk is 1.6%. According to the ACR, ACS, and NCCN guidelines, an annual breast MRI exam along with mammogram is recommended if the patient's lifetime risk is 20% or greater. This exam was interpreted at Station ID: [id number]. NOTE: For mammograms, a report in lay terms will be sent to the patient. Approximately 15% of breast malignancies will not be visualized mammographically. In the management of a palpable breast mass, a negative mammogram must not discourage biopsy of a clinically suspicious lesion. Electronically Signed By: Chidi Desai M.D. aty/:04/26/2024 16:12:01 copy to: Lilian Flannery letter sent: Additional Imaging Needed ACR BI-RADS Category 0: Incomplete: Need Additional Imaging Evaluation
--- NOTE | 2024-04-26 13:30 | DI.US.S_ITS ---
LIMITED ULTRASOUND OF LEFT BREAST AND AXILLA: 04/26/2024 CLINICAL: 6 month follow up left breast. In addition to new left breast pain with lump. Comparison is made to exams dated: 04/26/2024 mammogram, 03/14/2023 ultrasound, 03/14/2023 mammogram - , 07/31/2021 ultrasound, 07/31/2021 mammogram - [facility], and 07/01/2020 mammogram - [facility]. Color flow and real-time ultrasound of the left breast 2 o'clock, 5 o'clock, and axilla regions were performed. Aguilar scale images of the real-time examination were reviewed. There is a 0.6 cm x 0.4 cm x 0.5 cm oval intraductal mass in the left breast at 5 o'clock anterior depth 5 cm from the nipple. This oval intraductal mass is hypoechoic and heterogeneously echogenic. This abnormality is more prominent and represents a change with now color flow imaging demonstrating that there is vascularity present. There also is a lymph node with lobulated uniform cortical thickening in the left axilla. This lymph node displays fatty hilum. This correlates as palpated and with area of clinical concern. Adjacent normal lymph nodes are also seen. IMPRESSION: SUSPICIOUS The 0.6 cm x 0.4 cm x 0.5 cm oval intraductal mass in the left breast at 5 o'clock anterior depth has a differential diagnosis of a papilloma versus other possible solid mass versus debris and is at a low suspicion for malignancy. An ultrasound guided biopsy is recommended. The lymph node with uniform, lobulated cortical thickening in the left axillary tail is likely reactive in etiology and probably benign. Recommend follow up ultrasound in 3-6 months to document resolution. If the results of the biopsy are malignant, then a biopsy of this lymph node will be recommended at that time. Findings and recommendations were discussed with the patient by Dr. Desai over the telephone during today's examination. This exam was interpreted at Station ID: [id number]. Electronically Signed By: Chidi eDsai M.D. aty/:04/26/2024 16:18:27 copy to: Lilian Flannery letter sent: Biopsy Required ACR BI-RADS Category 4A: Suspicious
== END ==
PROVIDERS: PCP Nurse Practitioner Family; Referring Provider Internal Medicine; Visit Provider Internal Medicine
DX: N63.23 Unspecified lump in the left breast, lower outer quadrant (principal); N63.10 Unspecified lump in the right breast, unspecified quadrant; R92.2 Inconclusive mammogram
CPT/HCPCS: 76642; 77066; G0279

== ENCOUNTER → 2024-06-08 | Outpatient (CLI) | payer OTHER, SELFPAY ==
[2023-05-11 08:27] VITALS: BMI 44.6
--- NOTE | 2024-06-08 | PATH_ITS ---
[facility] Accession Number: [id number] No. of containers..01 Tissue . 01 Material submitted: . breast - LEFT BREAST 5:00 5CMFN MASS . 01 Clinical history: . 5CMFN MASS . 01 Diagnosis: LEFT BREAST 5 O'CLOCK, 5 CM FROM NIPPLE: Benign breast parenchyma with fibroglandular and fibroadipose elements. Negative for epithelial atypia or malignancy. No definite mass identified; please correlate with clinical and imaging findings. MRV 06/12/2024 1452 Local . 01 Comment: This case is also reviewed by Dr. Irasema Rangel (Julie), who agrees with the interpretation. . 01 Electronically signed: . Sanna Ibrahim MD, Pathologist NPI- [id number] . 01 Gross description: . Received in formalin with two identifiers and left breast 5 o'clock 5 cm FN, are multiple fragments of yellow-gupta soft tissue admixed with hemorrhagic material aggregating to 2.3 x 2.0 x 0.3 cm. Filtered, inked black, and submitted entirely in cassette A1. . The specimen was removed on 06/08/2024 at 0948 hours. Time in formalin not provided. Cold ischemic time cannot be calculated. Total fixation time is approximately 52 hours. ([id number]) /VELIA 06/09/2024 2141 Local . 01 Pathologist provided ICD-10: N63.20 . 01 CPT . 678324 Performed at: [address] [facility] [address], [place], [place] [id number] MD Masood Watson MD Phone: [phone]
--- NOTE | 2024-06-08 08:16 | DI.MG.S_ITS ---
MM diagnostic mammo [id number]: 06/08/2024. BI-RADS: None CLINICAL: 53-year old female for left diagnostic mammogram. Mammogram is performed after US guided biopsy to assess marker location. Tyrer-Cuzick lifetime risk of 5.1%. No personal or first-degree family history of breast cancer. The patient reports pain in the left breast. The patient had a prior left breast biopsy. PRIOR EXAMS: Comparison is made with relevant prior imaging in PACS including the most recent: 03/14/2023, 07/31/2021, 01/29/2021, 07/17/2020, 07/01/2020. MAMMOGRAPHY TECHNIQUE: 2D and 3D (tomosynthesis) digital mammographic views obtained, with additional images as needed for full coverage. Current study was also evaluated with a Computer Aided Detection (CAD) system. DENSITY Left: B. There are scattered areas of fibroglandular density. MAMMOGRAPHY FINDINGS Left: Lower Outer at 5:00, Anterior depth: There is a (Mini [place]) biopsy marker in targeted location. IMPRESSION: Left * Biopsy marker present. OVERALL ASSESSMENT CATEGORY BI-RADS None: This exam requires no BI-RADS. ELECTRONICALLY SIGNED: Willem Zamora MD on 06/08/2024 at 04:53:35 PM PT Interpreting Station ID: [id number]
--- NOTE | 2024-06-08 08:54 | DI.US.S_ITS ---
Patient Name: DEREK SCHERER date: 1970 Sex: F Attending Physician: Daniel Indications: Date: 06/13/2024 21:43 At the request of: FRIEDA HOWARD Procedure: US bx breast perc w vac device US bx breast perc w vac device: 06/08/2024. Rad-Path Correlation: Possibly Discordant Pathology Classification: Benign SEE ADDENDUM AT END OF THIS REPORT SEE UPDATED PATHOLOGY AT END OF THIS REPORT CLINICAL: 53-year old female for left procedure that resulted from diagnostic, bilateral, digital, tomosynthesis, short-term follo on 03/14/2023. Tyrer-Cuzick lifetime risk of 6.4%. No personal or firstdegree family history of breast cancer. The patient reports pain in the left breast. The patient had a prior left breast biopsy. PRIOR EXAMS: Comparison is made with relevant prior imaging in PACS including the most recent: 03/14/2023, 07/31/2021, 01/29/2021, 07/17/2020, 07/01/2020. CONSENT Risks including but not limited to bleeding and infection, benefits and alternatives were discussed with the patient. The patients agreed to the procedure, reported no allergy to local anesthesia and signed the consent form. Risks including but not limited to bleeding and infection, benefits and alternatives were discussed with the patient. The patient agreed to the procedure and signed informed consent. Time out procedure was used. ROUTINE Left: Patient positioned in the supine or supine-oblique position, prepped and draped in the usual manner using sterile technique. Continued Report - Page 2 of 3 Patient Name: DEREK SCHERER date: 1970 Sex: F Attending Physician: Daniel Indications: Date: 06/13/2024 21:43 At the request of: FRIEDA HOWARD Procedure: US bx breast perc w vac device TECHNIQUE Left Breast: Lower Outer at 5:00, 5 cm from nipple, Anterior: Procedure: Ultrasound-guided vacuum-assisted biopsy of a mass with Mini Cork marker placement. Device: 14-gauge vacuum-assisted biopsy instrument. BD EleVation(TM) 14g. Approach: Lateral. Anesthesia: Local anesthesia obtained using 1%-lidocaine. Secondary local anesthesia obtained using 1%-lidocaine with epinephrine. Skin Entry: Incision with #11 blade. Passes: 1. Specimens: 4. Targeting Confirmation: Real-time Observation and Post-Procedure Imaging. Post-procedure imaging: Post-procedure mammogram confirms the marker to be in target location. Rad/Path Correlation: Pending receipt of pathology report. Conclusion: Ultrasound-guided Vacuum-assisted biopsy with post-procedure mammogram, Left Breast: Lower Outer at 5:00, 5 cm from nipple, Anterior COMPLICATIONS: No complications were encountered while the patient was in our department. DISPOSITION The patient left our department in good condition with aftercare instructions and urged to contact us should any problem arise. SUMMARY Left Breast: Lower Outer at 5:00, 5 cm from nipple, Anterior: Ultrasound-guided vacuum-assisted biopsy of a mass with Mini Cork marker placement. PATHOLOGY Left Breast: Lower Outer at 5:00, 5 cm from nipple, Anterior: Radiologist-Pathologist Correlation: Pending receipt of pathology report. ELECTRONICALLY SIGNED: Willem Zamora MD on 06/08/2024 at 04:51:43 PM PT ADDENDA: * ADDENDUM: Pathology results are benign; please see full pathology report. Recommend left breast ultrasound in 3 months. RAD-PATH CORRELATION: Possibly Discordant. Rad-Path Correlation changed from Pending. ELECTRONICALLY SIGNED: Guerrero Arreola M.D. on 06/13/2024 at 09:43:06 PM. Continued Report - Page 3 of 3 Patient Name: DEREK SCHERER date: 1970 Sex: F Attending Physician: Daniel Indications: Date: 06/13/2024 21:43 At the request of: FRIEDA HOWARD Procedure: US bx breast perc w vac device UPDATED PATHOLOGY Left Breast: Lower Outer at 5:00, 5 cm from nipple, Anterior: Benign Classification: Benign breast parenchyma with fibroglandular and fibroadipose elements. . Radiologist-Pathologist Correlation: Possibly-Discordant. Interpreting Station ID: [id number]
== END ==
PROVIDERS: PCP Internal Medicine; Referring Provider Internal Medicine; Visit Provider Internal Medicine
DX: N63.23 Unspecified lump in the left breast, lower outer quadrant (principal); R92.322 Mammographic fibroglandular density, left breast
CPT/HCPCS: 19083; 77065

== ENCOUNTER → 2024-07-31 16:47 | Outpatient (CLI) | payer OTHER, SELFPAY ==
[2023-05-11 08:27] VITALS: BMI 44.6
[2024-07-31 17:38] LABS: Influenza A - CEPHEID Flu A NEGATIVE (NEGATIVE); Influenza B - CEPHEID Flu B NEGATIVE (NEGATIVE); Respiratory Syncytial Virus Negative (Negative)
[2024-07-31 17:49] LABS: COVID-19 CEPHEID 4-PLEX PCR Negative (Negative)
== END ==
LOC: LAB 16:49
PROVIDERS: PCP Internal Medicine; Visit Provider Chiropractor
DX: R05.1 Acute cough (principal)
CPT/HCPCS: 0241U